=== PATIENT | female | born 1990 | race Caucasian/White ===

== ENCOUNTER 2023-10-22 16:37 | Emergency (ER) | payer BC, SELFPAY ==
[2023-10-22 16:39] VITALS: BP 107/76; PULSE 102; RESP 16; TEMP 37.1; O2SAT 96; BMI 27.5
--- NOTE | 2023-10-22 16:44 | ED_ITS ---
HPI - General Adult General Chief complaint: Headache/Migraine Stated complaint: migraine, swollen lymph nodes Time Seen by Provider: 10/22/23 16:38 History of Present Illness HPI narrative: woke up with swollen lymph node. has had migraine for over a week that can't get rid of. had to miss work twice. has tried tylenol and ibuprofen, benadryl and naproxen. states started getting migraines more frequently over the last month . 32-year-old woman presenting to the emergency department with concern of swollen lymph node and migrainous headache. As she reports a headache for about a week and a half that she has been unable to shake. She has had to miss work due to it. 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 Does have a history of headaches and it sounds like a diagnosis of migraines. She has had Imitrex available and more recently has used that, acetaminophen, ibuprofen and naproxen without relief. Headaches have been more intense and more frequent over the last month and a half. This current headache does get worse over the course of the day. Does seem to improve it nightly she is able to sleep. She does admit that she will wake without the headache but very shortly after waking headache will start to build. She describes of frontal forehead headache and on the top of her head. Will get in deeply behind her eyes as well. Does not describe lacrimation or rhinorrhea. This morning woke with a swollen lymph node the left side of her neck. Whenever she rotates to the left seems to set things off again or a pulse of pain into her head. She does not describe a regular pulsing or shock independent of movement. She is seeing stars in both eyes. Is not nauseated at this time. She reports having sweats related to the degree of discomfort. No fever no rash. Does recall getting headaches more intense during . Has a 2-year-old now. They seem to settle but now has noted increasing again. Looking to reconnect with primary care provider for recommendations. She has had prior CT and MRI imaging as part of evaluation she believes. No known history of concussions. Related Data Home Medications Medication Instructions Recorded Confirmed clonazepam 0.5 mg tablet 0.5 mg PO DAILY 10/22/23 10/22/23 quetiapine 50 mg tablet 50 mg PO BID 10/22/23 10/22/23 Allergies Allergy/AdvReac Type Severity Reaction Status Date / Time No Known Drug Allergies Allergy Verified 10/22/23 16:42 Review of Systems Status of ROS: Reports: 6 or more systems reviewed and unremarkable except as noted in History and below Exam Narrative: Exam Narrative: Pleasant. Seems uncomfortable. Demonstrating photophobia. Numerous black line tattoos. Cranial nerves 2-12 intact. Pupils are 4 mm and appropriately reactive initially in this dim lighting. Neck is supple. She is sore at the angle of left jaw in the upper anterior cervical chain where there is 1 cm lymph node. I do not see surrounding inflammatory changes. Scalp is free of lesions. Breathing easily. Heart in elevated rate and regular rhythm. Moving all extremities without difficulty; with good strength. No pulsatile swelling at the temples. She is a little tender to palpation though across the forehead in into bitemporal area. Const: Vital Signs, click to edit/add: Vital Signs - 24 hr 10/22/23 16:39 Temperature 98.7 F Pulse Rate [Pulse Oximeter] 102 H Respiratory Rate 16 Blood Pressure [Ri ght Upper Arm] 107/76 Pulse Oximetry 96 Oxygen Delivery Me thod Room Air Documenting provider has reviewed patient's vital signs: yes Course Vital Signs Vital signs: Initial Vital Signs Temperature 98.7 F 10/22/23 16:39 Temperature Source Temporal Artery Scan 10/22/23 16:39 Pulse Rate 102 H 10/22/23 16:39 Respiratory Rate 16 10/22/23 16:39 Blood Pressure 107/76 10/22/23 16:39 Blood Pressure Mean 86 10/22/23 16:39 Blood Pressure Position Sitting 10/22/23 16:39 Pulse Oximetry 96 10/22/23 16:39 Oxygen Delivery Method Room Air 10/22/23 16:39 Vital Signs Temperature 98.7 F 10/22/23 16:39 Pulse Rate 102 H 10/22/23 16:39 Respiratory Rate 16 10/22/23 16:39 Blood Pressure 107/76 10/22/23 16:39 Pulse Oximetry 96 10/22/23 16:39 Oxygen Delivery Method Room Air 10/22/23 16:39 Temperature 98.7 F 10/22/23 16:39 Pulse Rate 86 10/22/23 19:27 Respiratory Rate 16 10/22/23 19:27 Blood Pressure 136/96 H 10/22/23 19:27 Pulse Oximetry 99 10/22/23 19:27 Oxygen Delivery Method Room Air 10/22/23 19:27 Medications Administered Medications: Discontinued Medications Generic Name Dose Route Start Last Admin Trade Name Harinder PRN Reason Stop Dose Admin Dexamethasone 10 mg 10/22/23 17:02 10/22/23 17:22 Dexamethasone 10 Mg/Ml Inj IV 10/22/23 17:03 10 mg ONCE ONE Administration Diphenhydramine HCl 25 mg 10/22/23 17:02 10/22/23 17:22 Diphenhydramine 50 Mg/Ml Inj IVP 10/22/23 17:03 25 mg ONCE ONE Administration Sodium Chloride 1,000 mls @ 1,000 mls/hr 10/22/23 17:02 10/22/23 18:16 0.9 % Sodium Chloride 1000 Ml IV 10/22/23 18:01 Infused .Q1H ONE Infusion Ketamine HCl 20 mg 10/22/23 18:47 10/22/23 19:03 Ketamine Hcl 100 Mg/Ml Inj IVPB 10/22/23 18:48 20 mg ONCE ONE Administration Ketorolac Tromethamine 30 mg 10/22/23 17:02 10/22/23 17:22 Ketorolac 30 Mg/Ml Inj IVP 10/22/23 17:03 30 mg ONCE ONE Administration Medical Decision Making MDM Narrative Medical decision making narrative: Will try to offer her relief for this headache. She has had imaging in the past. Since this recent bout of headaches seems to resolve overnight I am a somewhat reassured; I think less likely intracerebral lesion or event beyond headache/migraine. Would appear to have some degree of tension component. Exacerbated now by this swollen lymph node of unclear etiology. Certainly has numerous options for longer-term management. Thought she had some sinus congestion recently but that has not apparently amounted to much. No focal neurological findings here today. Initiate IV. Normal saline, diphenhydramine and ketorolac. On reassessment is still with headache though admittedly somewhat improved. Would like further treatment. After discussion we settled on ketamine. Was also ordered for dexamethasone. Markedly improved after ketamine infusion. See patient discharge plan for further discussion Discharge Plan Discharge Clinical Impression: Migraine Patient Disposition: Home w/ Parent or Adult Condition: Improved Additional Instructions: Continue to stay well hydrated and get quality and regular sleep. Try to get in a little heart pumping exercise daily. Check in with your primary care provider as planned for next step in management. Hopefully this evening is the last of this latest flare. The dexamethasone should continue to work in the background for maybe another 36 hours to finish off any remaining inflammation. See handout on stretches/exercises for the upper back. Follow-up for re-evaluation if this lymph node is still present after 2-3 weeks. Prescriptions: No Action clonazepam 0.5 mg tablet 0.5 mg PO DAILY quetiapine 50 mg tablet 50 mg PO BID Follow Up/Referrals: Provider,Not a Local [Primary Care Provider] - Stand Alone Forms: [employer] Info Instructions
[2023-10-22] MEDS: diphenhydrAMINE 50 MG/ML inj 25 MG IVP (17:22)
[2023-10-22] MEDS: 0.9 % SODIUM CHLORIDE 1000 ml 1,000 ML IV (17:22)
[2023-10-22] MEDS: dexAMETHasone 10 MG/ML inj IV (17:22)
[2023-10-22] MEDS: KETOROLAC 30 MG/ML inj IVP (17:22)
[2023-10-22] MEDS: KETAMINE HCL 100 MG/ML inj 20 MG IVPB (19:03)
[2023-10-22 19:27] VITALS: BP 136/96; PULSE 86; RESP 16; O2SAT 99
== END 2023-10-22 19:55 | disposition home or self-care (01) ==
PROVIDERS: Emergency Provider Family Medicine
DX: G43.909 Migraine, unspecified, not intractable, without status migrainosus (principal)
CPT/HCPCS: 96374; 96375; 99284; J1100; J1200; J1885; J3490; J7030

== ENCOUNTER 2023-11-15 15:21 | Emergency (ER) | payer BC, SELFPAY ==
[2023-11-15 15:28] VITALS: BP 144/91; PULSE 73; RESP 18; TEMP 36.6; O2SAT 97; BMI 27.5
--- NOTE | 2023-11-15 15:56 | ED_ITS ---
HPI - Dental/Oral General Chief complaint: Dental/Oral/Mouth Injury/Pain Stated complaint: broken/infected tooth Time Seen by Provider: 11/15/23 15:25 History of Present Illness HPI Narrative: This 33-year-old female comes in with right upper dental pain. She has a fractured tooth and believes that there is an associated infection. She states that she does have an appointment with her dentist in a few days but could not handle the pain despite taking Tylenol and ibuprofen. Related Data Home Medications Medication Instructions Recorded Confirmed clonazepam 0.5 mg tablet 0.5 mg PO DAILY 10/22/23 10/22/23 quetiapine 50 mg tablet 50 mg PO BID 10/22/23 10/22/23 Previous Rx's Medication Instructions Recorded amoxicillin 500 mg capsule 500 mg PO TID 7 days #21 caps 11/15/23 ketorolac 10 mg tablet 10 mg PO Q8H 5 days #15 tabs 11/15/23 Allergies Allergy/AdvReac Type Severity Reaction Status Date / Time No Known Drug Allergies Allergy Verified 10/22/23 16:42 Review of Systems Status of ROS: Reports: 10 or more systems reviewed and unremarkable except as noted in History and below Narrative: Constitutional: No fevers, no weight gain or loss. Eyes: No discharge. No vision changes. HENT: No congestion, no sore throat, no ear pain. Cardiovascular: No chest pain, no palpitations. Respiratory: No shortness of breath, no wheezes, no cough. Gastrointestinal: No abdominal pain, no vomiting, no diarrhea. Genitourinary: No dysuria, no hematuria. Musculoskeletal: Normal range of motion. Skin: No rashes, no pruritis. Neurological: No dizziness, weakness, sensory change, speech change. Endo/Heme/Allergies: No bruising or bleeding. No polydipsia. Pysch: no suicidality, no anxiety, no insomnia. All other systems reviewed and are negative. PFSH PFS Social History Smoking Status: Current some day smoker Do you use any of these nicotine containing products: Vaping Products How often do you have a drink containing alcohol: never AUDIT-C Alcohol total score: 0 Non-prescribed substance use: denies use Exam Narrative: Exam Narrative: Constitutional: Well-developed, well-nourished, no acute distress. HEENT: Normocephalic, atraumatic. Fractured tooth in the right upper row. There is no obvious sign of abscess but may have some infection internally. Neck: Normal range of motion. Nontender. Supple. Heart: Regular. No murmurs. Normal rate. Intact distal pulses. Lungs: Clear to auscultation. No chest discomfort. No wheezes, rhonchi, or rales. Abdomen: Normal bowel sounds. Nontender. No rebound tenderness. Genitalia: Deferred. Back: No midline tenderness. Normal range of motion. Extremities: Normal range of motion. No injury. Skin: Intact. No rash. Warm. No erythema or pallor. Neurologic: No altered sensation. No weakness. Alert and oriented. Psychiatric: No suicidality. No anxiety or depression. No insomnia. Nursing notes and vitals signs are reviewed. Const: Vital Signs, click to edit/add: Vital Signs - 24 hr 11/15/23 15:28 Temperature 98 F Pulse Rate [Pulse Oximeter] 73 Respiratory Rate 18 Blood Pressure [Ri ght Upper Arm] 144/91 H Pulse Oximetry 97 Oxygen Delivery Me thod Room Air Course Vital Signs Vital signs: Initial Vital Signs Temperature 98 F 11/15/23 15:28 Temperature Source Temporal Artery Scan 11/15/23 15:28 Pulse Rate 73 11/15/23 15:28 Respiratory Rate 18 11/15/23 15:28 Blood Pressure 144/91 H 11/15/23 15:28 Blood Pressure Mean 108 H 11/15/23 15:28 Pulse Oximetry 97 11/15/23 15:28 Oxygen Delivery Method Room Air 11/15/23 15:28 Vital Signs Temperature 98 F 11/15/23 15:28 Pulse Rate 73 11/15/23 15:28 Respiratory Rate 18 11/15/23 15:28 Blood Pressure 144/91 H 11/15/23 15:28 Pulse Oximetry 97 11/15/23 15:28 Oxygen Delivery Method Room Air 11/15/23 15:28 Temperature 98 F 11/15/23 15:28 Pulse Rate 73 11/15/23 15:28 Respiratory Rate 18 11/15/23 15:28 Blood Pressure 144/91 H 11/15/23 15:28 Pulse Oximetry 97 11/15/23 15:28 Oxygen Delivery Method Room Air 11/15/23 15:28 MDM - Dental/Oral MDM Narrative Medical decision making narrative: This patient is agreeable to having the dental nerve block for some pain relief. Using bupivacaine 0.25% I did inject above the affected tooth and a bit anterior and posterior to provide some kind a nerve block of the maxillary nerves involved. This did bring relief to her symptoms. I did also provide a prescription for amoxicillin and Toradol. Discharge Plan Discharge Clinical Impression: Toothache, Fracture of tooth Patient Disposition: Home, Self-Care Condition: Improved Additional Instructions: Take medication as prescribed. Follow-up with dentist as scheduled. Prescriptions: New amoxicillin 500 mg capsule 500 mg PO TID 7 Days Qty: 21 0RF ketorolac 10 mg tablet 10 mg PO Q8H 5 Days Qty: 15 0RF No Action clonazepam 0.5 mg tablet 0.5 mg PO DAILY quetiapine 50 mg tablet 50 mg PO BID Follow Up/Referrals: Provider,Not a Local [Primary Care Provider] - Stand Alone Forms: [employer] Info Instructions
== END 2023-11-15 16:09 | disposition home or self-care (01) ==
LOC: ED 16:04
PROVIDERS: Emergency Provider Emergency Medicine Emergency Medical Services
DX: S02.5XXA Fracture of tooth (traumatic), initial encounter for closed fracture (principal)
CPT/HCPCS: 64400; 99283; 99284

== ENCOUNTER 2024-02-23 15:05 | Outpatient (CLI) | payer BC, SELFPAY | END 2024-02-23 15:06 | disposition home or self-care (01) | LOC: AMB 02-26 23:52 | PROVIDERS: Visit Provider Student in an Organized Health Care Education/Training Program | DX: R55 Syncope and collapse (principal); R42 Dizziness and giddiness | CPT/HCPCS: A0425; A0427 ==

== ENCOUNTER 2024-02-23 15:28 | Emergency (ER) | payer BC, SELFPAY ==
[2024-02-23 15:36] VITALS: BP 134/91; PULSE 88; RESP 16; TEMP 37.4; O2SAT 98; BMI 27.5
--- NOTE | 2024-02-23 15:56 | CRLHL7_ITS ---
For Patients: As a result of the Century Cures Act, medical imaging exams and procedure reports are released immediately into your electronic medical record. You may view this report before your referring provider. If you have questions, please contact your health care provider. Indication: Syncope. Technique: CT of the brain was performed without intravenous contrast. Comparison: None relevant available at this institution. Findings: No acute blurring of the valdes-white differentiation. There is no intracranial hemorrhage. The ventricles are proportionate to the cerebral sulci. The 4th ventricle is midline. Basal cisterns appear patent. No abnormal extra-axial fluid collection identified. There is no intracranial mass, mass effect or midline shift identified. No depressed calvarial fracture. Impression: No acute intracranial process. Please note that all CT scans at this facility use dose modulation, iterative reconstruction, and/or weight-based dosing when appropriate to reduce radiation dose to as low as reasonably achievable. Dictated by Howard Flores MD @ 02/23/2024 4:41:18 PM (Electronically Signed)
--- NOTE | 2024-02-23 15:56 | CRLHL7_ITS ---
For Patients: As a result of the Century Cures Act, medical imaging exams and procedure reports are released immediately into your electronic medical record. You may view this report before your referring provider. If you have questions, please contact your health care provider. Indication: Syncope. Technique: CT of the cervical spine performed without IV contrast. Comparison: None available. Findings: The vertebral body heights are maintained without fracture. Disc space heights appear preserved. Straightening of the cervical lordosis. No overt evidence for high-grade spinal canal or neural foraminal stenosis. No prevertebral soft tissue swelling. Impression: No acute osseous injury involving the cervical spine. Please note that all CT scans at this facility use dose modulation, iterative reconstruction, and/or weight-based dosing when appropriate to reduce radiation dose to as low as reasonably achievable. Dictated by Howard Flores MD @ 02/23/2024 4:43:23 PM (Electronically Signed)
--- NOTE | 2024-02-23 15:58 | ED.GENADULT ---
HPI - General Adult General Chief complaint: Headache/Migraine Stated complaint: syncope Time Seen by Provider: 02/23/24 15:46 History of Present Illness HPI narrative: 33-year-old female comes in because of a syncopal event at a occurred just prior to arrival. She states that she was feeling normal and when outside to walk to work a distance of about 2-4 blocks. She got a bit more than skilled nursing there and does not remember what happened. She was on the ground and remember somebody waking her up and the ambulance had been called. She comes in with normal vital signs with blood glucose also has normal levels. She is not on any new medications. She is complaining of head and neck pain. She arrives with normal vital signs. Related Data Home Medications ?Medication ?Instructions ?Recorded ?Confirmed clonazepam 1 mg tablet 1 mg PO BID PRN 02/23/24 02/23/24 dextroamphetamine-amphetamine ER 1 cap PO QAM 02/23/24 02/23/24 15 mg 24hr capsule,extend release duloxetine 20 mg capsule,delayed 40 mg PO DAILY 02/23/24 02/23/24 release vilazodone 10 mg tablet (Viibryd) 10 mg PO DAILY 02/23/24 02/23/24 Allergies Allergy/AdvReac Type Severity Reaction Status Date / Time bee venom protein (honey bee) AdvReac Mild edema Verified 02/23/24 15:34 Review of Systems Status of ROS: Reports: 10 or more systems reviewed and unremarkable except as noted in History and below Narrative: Constitutional: No fevers, no weight gain or loss. Eyes: No discharge. No vision changes. HENT: No congestion, no sore throat, no ear pain. Cardiovascular: No chest pain, no palpitations. Respiratory: No shortness of breath, no wheezes, no cough. Gastrointestinal: No abdominal pain, no vomiting, no diarrhea. Genitourinary: No dysuria, no hematuria. Musculoskeletal: Normal range of motion. Skin: No rashes, no pruritis. Neurological: No dizziness, weakness, sensory change, speech change. Endo/Heme/Allergies: No bruising or bleeding. No polydipsia. Pysch: no suicidality, no anxiety, no insomnia. All other systems reviewed and are negative. PFSH PFSH Social History Smoking Status: Current some day smoker Do you use any of these nicotine containing products: Vaping Products Second hand tobacco smoke exposure: No How often do you have a drink containing alcohol: never AUDIT-C Alcohol total score: 0 Non-prescribed substance use: denies use and former substance user Non-prescribed substance use details: clean since 2009 service: No Exam Narrative: Exam Narrative: Constitutional: Well-developed, well-nourished, no acute distress. HEENT: Normocephalic, atraumatic. Neck: Normal range of motion. Nontender. Supple. Heart: Regular. No murmurs. Normal rate. Intact distal pulses. Lungs: Clear to auscultation. No chest discomfort. No wheezes, rhonchi, or rales. Abdomen: Normal bowel sounds. Nontender. No rebound tenderness. Genitalia: Deferred. Back: No midline tenderness. Normal range of motion. Extremities: Normal range of motion. No injury. Skin: Intact. No rash. Warm. No erythema or pallor. Neurologic: No altered sensation. No weakness. Alert and oriented. Psychiatric: No suicidality. No anxiety or depression. No insomnia. Nursing notes and vitals signs are reviewed. Const: Vital Signs, click to edit/add: Vital Signs - 24 hr 02/23/24 15:36 Temperature 99.3 F Pulse Rate [Femora l] 88 Respiratory Rate 16 Blood Pressure [Ri ght Upper Arm] 134/91 H Pulse Oximetry 98 Oxygen Delivery Me thod Room Air Course Vital Signs Vital signs: Initial Vital Signs Temperature 99.3 F 02/23/24 15:36 Temperature Source Temporal Artery Scan 02/23/24 15:36 Pulse Rate 88 02/23/24 15:36 Pulse Rhythm Regular 02/23/24 15:36 Pulse Strength 3+ Normal 02/23/24 15:36 Respiratory Rate 16 02/23/24 15:36 Blood Pressure 134/91 H 02/23/24 15:36 Blood Pressure Mean 105 02/23/24 15:36 Blood Pressure Position Semi-Fowlers 02/23/24 15:36 Pulse Oximetry 98 02/23/24 15:36 Oxygen Delivery Method Room Air 02/23/24 15:36 Vital Signs Temperature 99.3 F 02/23/24 15:36 Pulse Rate 88 02/23/24 15:36 Respiratory Rate 16 02/23/24 15:36 Blood Pressure 134/91 H 02/23/24 15:36 Pulse Oximetry 98 02/23/24 15:36 Oxygen Delivery Method Room Air 02/23/24 15:36 Temperature 99.3 F 02/23/24 15:36 Pulse Rate 88 02/23/24 15:36 Respiratory Rate 16 02/23/24 15:36 Blood Pressure 134/91 H 02/23/24 15:36 Pulse Oximetry 98 02/23/24 15:36 Oxygen Delivery Method Room Air 02/23/24 15:36 Medications Administered Medications: Discontinued Medications Generic Name Dose Route Start Last Admin Trade Name Freq PRN Reason Stop Dose Admin Sodium Chloride 1,000 mls @ 1,000 mls/hr 02/23/24 16:00 02/23/24 16:23 0.9 % Sodium Chloride 1000 Ml IV 02/23/24 16:59 1,000 mls/hr .Q1H MG Administration Ketorolac Tromethamine 10 mg 02/23/24 16:31 02/23/24 16:41 Ketorolac 10 Mg Tablet PO 02/23/24 16:32 10 mg ONCE ONE Administration Medical Decision Making MDM Narrative Medical decision making narrative: This patient comes in for evaluation of a syncopal event that occurred just prior to arrival. She arrives here with normal vital signs. She does state that she has a dry mouth. It is very hot and humid today and she was out walking to work when this happened. An IV was placed and the patient received 500 mL of fluid prior to arrival in another a 1000 mL After arrival here. CT scan of her head and neck is obtained with no acute findings. Additionally lab results all retuned normal. The patient states that she is feeling better and is okay to return home. She did receive an oral dose of Toradol 10 mg. Lab Data Labs: Lab Results 02/23/24 Range/Units 16:26 WBC 7.88 (4.50-11.00) K/uL RBC 4.18 (4.00-5.20) m/uL Hgb 13.2 (12.0-16.0) gm/dL Hct 39.4 (33.0-51.0) % MCV 94 (80-100) fL MCH 32 (26-34) pg MCHC 34 (32-36) gm/dL RDW Coeff of Luz 11.4 L (11.5-15.5) % Plt Count 243 (140-440) K/uL Neut % (Auto) 72.3 H (42.0-72.0) % Lymph % (Auto) 24.0 (20-44) % Karnes % (Auto) 3.4 (0.0-11.0) % Eos % (Auto) 0.1 (0.0-7.0) % Baso % (Auto) 0.1 (0.0-3.0) % Neut # (Auto) 5.70 (1.7-7.0) K/uL Lymph # (Auto) 1.89 (0.90-2.90) K/uL Karnes # (Auto) 0.30 (0.00-0.90) K/UL Eos # (Auto) 0.01 (0.00-0.50) K/uL Baso # (Auto) 0.01 (0.00-0.30) K/uL Abs Immat Gran (auto) 0.01 (0.00-0.30) K/uL Imm/Tot Granulo (auto) 0.1 % Sodium 140 (135-149) mmol/L Potassium 4.3 (3.6-5.1) mmol/L Chloride 109 (96-114) mmol/L Carbon Dioxide 24 (20-32) mmol/L Anion Gap 7 (7-15) mEq/L BUN 10 (5-24) mg/dL Creatinine 0.8 (0.5-1.5) mg/dL Estimated Creat Clear 89.16 Estimated GFR 99 ml/min Glucose 102 (60-115) mg/dL Calcium 9.1 (8.4-10.6) mg/dL Imaging Data CT scan - head: Radiologist's impression: No acute intracranial process. CT Cervical Spine: Radiologist's impression: No acute osseous injury involving the cervical spine. Discharge Plan Discharge Clinical Impression: Syncope, Headache Patient Disposition: Home w/ Parent or Adult Condition: Improved Additional Instructions: use [id number] medicines as needed and directed. Take plenty of fluids increase diet as tolerated. Follow up with MD return if recurrent or worsening symptoms happen. Prescriptions: No Action clonazepam 1 mg tablet 1 mg PO BID PRN dextroamphetamine-amphetamine 15 mg capsule,extended release 24hr 1 cap PO QAM duloxetine 20 mg capsule,delayed release(DR/EC) 40 mg PO DAILY vilazodone [Viibryd] 10 mg tablet 10 mg PO DAILY Follow Up/Referrals: Provider,Not a Local [Primary Care Provider] - Stand Alone Forms: [employer] Info Instructions
[2024-02-23] MEDS: 0.9 % SODIUM CHLORIDE 1000 ml 1,000 ML IV (16:23)
[2024-02-23 16:34] LABS: Basophils Absolute Auto 0.01 K/uL (0.00-0.30); Basophils Percent Auto 0.1 % (0.0-3.0); Eosinophils Absolute Auto 0.01 K/uL (0.00-0.50); Eosinophils Percent Auto 0.1 % (0.0-7.0); Hematocrit 39.4 % (33.0-51.0); Hemoglobin* 13.2 gm/dL (12.0-16.0); Immature Granulocytes Abs Auto 0.01 K/uL (0.00-0.30); Immature Granulocytes Pct Auto 0.1 %; Lymphocytes Absolute Auto 1.89 K/uL (0.90-2.90); Mean Corpuscular HGB Conc 34 gm/dL (32-36); Mean Corpuscular Hemoglobin 32 pg (26-34); Mean Corpuscular Volume 94 fL (80-100); Monocytes Percent Auto 3.4 % (0.0-11.0); Neutrophils Percent Auto 72.3 % (42.0-72.0); Platelet Count* 243 K/uL (140-440); RDW Coefficient of Variation % 11.4 % (11.5-15.5); Red Blood Count 4.18 m/uL (4.00-5.20); White Blood Count* 7.88 K/uL (4.50-11.00)
[2024-02-23] MEDS: KETOROLAC 10 MG TABLET PO (16:41)
[2024-02-23 16:43] LABS: Slide Review Reflex No
[2024-02-23 16:47] LABS: Chloride* 109 mmol/L (96-114); Potassium* 4.3 mmol/L (3.6-5.1); Sodium* 140 mmol/L (135-149)
[2024-02-23 16:49] LABS: Creatinine* 0.8 mg/dL (0.5-1.5); Est. Creatinine Clearance* 89.16; Estimated Glomerular Filt Rate 99 ml/min
[2024-02-23 16:50] LABS: Anion Gap 7 mEq/L (7-15); Blood Urea Nitrogen* 10 mg/dL (5-24); Calcium* 9.1 mg/dL (8.4-10.6); Carbon Dioxide* 24 mmol/L (20-32); Glucose* 102 mg/dL (60-115)
[2024-02-23 17:39] VITALS: BP 134/91; PULSE 88; RESP 16; TEMP 37.4
== END 2024-02-23 17:41 | disposition home or self-care (01) ==
PROVIDERS: Emergency Provider Emergency Medicine Emergency Medical Services
DX: R55 Syncope and collapse (principal); R51.9 Headache, unspecified
CPT/HCPCS: 36415; 70450; 72125; 80048; 85025; 99284; A9270; J7030

== ENCOUNTER 2024-03-01 18:18 | Emergency (ER) | payer BC, SELFPAY ==
[2024-03-01 18:26] VITALS: BP 118/73; PULSE 119; RESP 16; TEMP 38.6; O2SAT 96; BMI 27.5
[2024-03-01 18:55] LABS: Appearance Urine Clear (Clear); Bilirubin Urine Negative (Negative); Blood Urine 2+ (Negative); Color Urine Yellow (Yellow); Glucose Urine Negative (Negative); Ketones Urine Negative (Negative); Leukocyte Esterase Urine 1+ (Negative); Nitrite Urine Negative (Negative); Protein Urine Trace (Negative); Specific Gravity Urine 1.015 (1.000-1.030); Urobilinogen Urine 0.2 (0.2-1.0); pH Urine 5.5 (5.0-8.5)
[2024-03-01 19:11] LABS: Bacteria Urine Few; Squamous Epithelial Cell Urine Few (None-Few)
[2024-03-01 19:31] LABS: Ur HCG Qualitative* Negative (Negative)
--- NOTE | 2024-03-02 00:24 | ED_ITS ---
HPI - General Adult General Date Seen: 03/02/24 Chief complaint: Fever Stated complaint: Fever, short of breath, back pain, legs numb Time Seen by Provider: 03/01/24 18:33 History of Present Illness HPI narrative: This is a 33-year-old female accompanied to the ER today by her fiance for evaluation of fever, feeling weak, back pain. Patient notes that she has been having symptoms of dark urine and dysuria for the past week or so. However she has a very busy job and has a been able to come to the doctor for that. She specific specks that she may have a UTI. She had a long shift at work today. She was feeling a bit unwell. She was feeling weak and a bit tired and kind of dizzy. This evening she also developed pain in both of her flanks. She began to feel more dizzy and weak, and also some numbness in her legs and arms. Because she was feeling so poorly she checked her temperature and had a temperature of 103.2?. She called her fiance and he brought her here to the ER. No other symptoms to go with her fever. No headache. No sore throat. No nasal congestion. No cough. No rashes. No diarrhea. She was nauseous earlier but no vomiting. She had her fiance also recall that she had an episode about 2 weeks ago where she was walking to work in the hot weather and got dizzy and passed out. She was apparently evaluated in the ER here and was thought to a have benign cause for syncope. In review of medical record I see she was seen by Dr. Benson. She had a temp of 99.3?. Normal blood pressure. Pulse was 88. She was treated with IV fluids. Head CT scan and C-spine were obtained and were normal. Labs showed normal hemoglobin, normal white count, normal platelet count, normal glucose. Normal kidney function. Related Data Home Medications ?Medication ?Instructions ?Recorded ?Confirmed clonazepam 1 mg tablet 1 mg PO BID PRN 02/23/24 03/01/24 dextroamphetamine-amphetamine ER 1 cap PO QAM 02/23/24 03/01/24 15 mg 24hr capsule,extend release duloxetine 20 mg capsule,delayed 40 mg PO DAILY 02/23/24 03/01/24 release vilazodone 10 mg tablet (Viibryd) 10 mg PO DAILY 02/23/24 03/01/24 Previous Rx's ?Medication ?Instructions ?Recorded ketorolac 10 mg tablet 10 mg PO Q8H 5 days #15 tabs 02/23/24 Allergies Allergy/AdvReac Type Severity Reaction Status Date / Time bee venom protein (honey bee) AdvReac Mild edema Verified 03/01/24 18:25 [facility] Social History Smoking Status: Current some day smoker Do you use any of these nicotine containing products: Vaping Products Second hand tobacco smoke exposure: No How often do you have a drink containing alcohol: never AUDIT-C Alcohol total score: 0 Non-prescribed substance use: denies use and former substance user Non-prescribed substance use details: clean since 2009 service: No Exam Narrative: Exam Narrative: Constitutional: Appears well-developed and well-nourished. Alert. Conversant. Non toxic. HENT: Head: Atraumatic. Nose: Nose normal. Right ear normal. TM normal Left ear normal. Canal almost completely occluded by cerumen but visualized portion of the TM are normal. Mastoids normal bilaterally Mouth/Throat: Oral mucosa is clear and moist. no trismus. Pharynx normal. Tonsils symmetric. No tonsillar enlargement, erythema, or exudate. Eyes: Conjunctivae normal. EOM normal. Pupils equal, round, and reactive to light. No scleral icterus. Neck: Normal range of motion. Neck supple. No tracheal deviation present. Cardiovascular: Normal rate, regular rhythm. No gallop. No friction rub. No murmur heard. Symmetric radial artery pulses Pulmonary/Chest: Effort normal. No stridor. No respiratory distress. No wheezes. No rales. No rhonchi . No tenderness. Abdominal: Soft. Bowel sounds normal. No distension. No mass. No tenderness. No rebound. No guarding. Bilateral CVA tenderness. Musculoskeletal: RUE: Normal range of motion. No tenderness. No deformity LUE: Normal range of motion. No tenderness. No deformity RLE: Normal range of motion. No edema. No tenderness. No deformity LLE: Normal range of motion. No edema. No tenderness. No deformity Lymph: No cervical adenopathy. Neurological: Alert and oriented to person, place, and time. Normal strength. CN II-VII intact. No sensory deficit. GCS eye subscore is 4. GCS verbal subscore is 5. GCS motor subscore is 6. Normal coordination Skin: Skin is warm and dry. No rash noted. No pallor. Normal capillary refill. Psychiatric: Normal mood. Normal affect. Polite. Const: Vital Signs, click to edit/add: Vital Signs - 24 hr 03/01/24 18:26 Temperature 101.5 F H Pulse Rate [Pulse Oximeter] 119 H Respiratory Rate 16 Blood Pressure [Ri ght Upper Arm] 118/73 Pulse Oximetry 96 Oxygen Delivery Me thod Room Air Course Vital Signs Vital signs: Initial Vital Signs Temperature 101.5 F H 03/01/24 18:26 Temperature Source Temporal Artery Scan 03/01/24 18:26 Pulse Rate 119 H 03/01/24 18:26 Pulse Rhythm Regular 03/01/24 18:26 Respiratory Rate 16 03/01/24 18:26 Blood Pressure 118/73 03/01/24 18:26 Blood Pressure Mean 88 03/01/24 18:26 Blood Pressure Position Supine 03/01/24 18:26 Pulse Oximetry 96 03/01/24 18:26 Oxygen Delivery Method Room Air 03/01/24 18:26 Vital Signs Temperature 101.5 F H 03/01/24 18:26 Pulse Rate 119 H 03/01/24 18:26 Respiratory Rate 16 03/01/24 18:26 Blood Pressure 118/73 03/01/24 18:26 Pulse Oximetry 96 03/01/24 18:26 Oxygen Delivery Method Room Air 03/01/24 18:26 Temperature 101.5 F H 03/01/24 18:26 Pulse Rate 119 H 03/01/24 18:26 Respiratory Rate 16 03/01/24 18:26 Blood Pressure 118/73 03/01/24 18:26 Pulse Oximetry 96 03/01/24 18:26 Oxygen Delivery Method Room Air 03/01/24 18:26 Medical Decision Making MDM Narrative Medical decision making narrative: Child presents for evaluation of fever associated with dizziness, back pain, malaise.. Differential is broad. No cough or nasal congestion or other URI symptoms to suggest COVID or other viral syndrome. None of the classic viral rashes are present.No evidence for OM on exam. No pharyngitis. Differential for fever included cellulitis, septic arthritis, osteomyelitis but these are not seen on exam. Lungs are clear and no significant cough, so I doubt pneumonia. Abdominal exam is benign, appendicitis/colitis/ intra-abdominal source for fever is unlikely. The patient is smiling, alert, sitting up, hemodynamically stable, and non-toxic, so I do not think sepsis or meningitis is present. She does report dysuria and malodorous urine ongoing this week which would be suggestive for probable UTI. Now with fever and flank pain suspect she may be developing pyelonephritis. Urinalysis is abnormal with positive leukocyte esterase, protein, 2-5 red cells per high-power field. Overall this would be equivocal evidence for UTI but she also reports that she took a dose of amoxicillin earlier today when she started running fever. This certainly could mask signs of UTI. Discussed with the patient and her fiance that we could consider further workup with labs, fluids, imaging a, COVID testing. However with a presumed source of her fever and infection being identified as probable urine, we could also consider treatment at this point with a course of antibiotics. At this point she is hemodynamically stable and I do not think she requires hospitalization for pyelonephritis. Therefore they opted to treat with antibiotics. Will start the patient on cephalexin (prescription through [facility]). At this point the patient is non-toxic, well appearing. This fever is likely due to UTI/possible evolving pyelonephritis. Instructions to return for recheck in 3 days if not improved, or immediately if worsening fever, decreasing oral intake, lethargy, irritability, seizure, or any other concerns. Lab Data Labs: Lab Results 03/01/24 03/01/24 Range/Units 18:50 19:20 Urine Color Yellow (Yellow) Urine Appearance Clear (Clear) Urine pH 5.5 (5.0-8.5) Ur Specific [place] 1.015 (1.000-1.030) Urine Protein Trace A (Negative) Urine Glucose (UA) Negative (Negative) Urine Ketones Negative (Negative) Urine Blood 2+ A (Negative) Urine Nitrite Negative (Negative) Urine Bilirubin Negative (Negative) Urine Urobilinogen 0.2 (0.2-1.0) Ur Leukocyte Esterase 1+ A (Negative) Urine RBC 2-5 A (0-2) Urine WBC 2-5 (0-5) Ur Squamous Epith Cells Few (None-Few) Urine Bacteria Few A (None) Urine HCG, Qual Negative (Negative) Discharge Plan Discharge Clinical Impression: UTI (urinary tract infection), Pyelonephritis Patient Disposition: Home, Self-Care Condition: Stable Instructions: Kidney Infection (ED) Additional Instructions: As we discussed, please start on antibiotics to treat your infection tonight. Take them as prescribed for 10 days until they are gone. We will call you in 1- 3 days if your urine culture shows an unusual bacteria and we need to change your antibiotic. Monitor your symptoms carefully. Rest. Drink plenty of fluids and stay hydrated. Eat healthy food as you are able. Please come back to the ER right away if you have worsening symptoms such as high fever, worsening weakness, worsening body aches, nausea and vomiting, or if you have any other problems or new symptoms (for instance if you have new cough or trouble breathing). Please follow-up with your regular doctor for a checkup within 7-10 days Prescriptions: No Action clonazepam 1 mg tablet 1 mg PO BID PRN dextroamphetamine-amphetamine 15 mg capsule,extended release 24hr 1 cap PO QAM duloxetine 20 mg capsule,delayed release(DR/EC) 40 mg PO DAILY vilazodone [Viibryd] 10 mg tablet 10 mg PO DAILY ketorolac 10 mg tablet 10 mg PO Q8H 5 Days Qty: 15 0RF Follow Up/Referrals: Provider,Not a Local [Non-Staff] - Stand Alone Forms: [employer] Info Instructions
--- NOTE | 2024-03-04 08:16 | ED.GENADULT ---
HPI - General Adult General Chief complaint: Fever Stated complaint: Fever, short of breath, back pain, legs numb Time Seen by Provider: 03/01/24 18:33 History of Present Illness HPI narrative: Follow-up addendum to recent ER visit. Urine culture is positive for [id number] CFU of E coli, pansensitive. On cephalexin (as prescribed through [facility] ). Should be adequate Related Data Home Medications ?Medication ?Instructions ?Recorded ?Confirmed clonazepam 1 mg tablet 1 mg PO BID PRN 02/23/24 03/01/24 dextroamphetamine-amphetamine ER 1 cap PO QAM 02/23/24 03/01/24 15 mg 24hr capsule,extend release duloxetine 20 mg capsule,delayed 40 mg PO DAILY 02/23/24 03/01/24 release vilazodone 10 mg tablet (Viibryd) 10 mg PO DAILY 02/23/24 03/01/24 Previous Rx's ?Medication ?Instructions ?Recorded ketorolac 10 mg tablet 10 mg PO Q8H 5 days #15 tabs 02/23/24 Allergies Allergy/AdvReac Type Severity Reaction Status Date / Time bee venom protein (honey bee) AdvReac Mild edema Verified 03/01/24 18:25 PFSH PFSH Social History Smoking Status: Current some day smoker Do you use any of these nicotine containing products: Vaping Products Second hand tobacco smoke exposure: No How often do you have a drink containing alcohol: never AUDIT-C Alcohol total score: 0 Non-prescribed substance use: denies use and former substance user Non-prescribed substance use details: clean since 2009 service: No Course Vital Signs Vital signs: Initial Vital Signs Temperature 101.5 F H 03/01/24 18:26 Temperature Source Temporal Artery Scan 03/01/24 18:26 Pulse Rate 119 H 03/01/24 18:26 Pulse Rhythm Regular 03/01/24 18:26 Respiratory Rate 16 03/01/24 18:26 Blood Pressure 118/73 03/01/24 18:26 Blood Pressure Mean 88 03/01/24 18:26 Blood Pressure Position Supine 03/01/24 18:26 Pulse Oximetry 96 03/01/24 18:26 Oxygen Delivery Method Room Air 03/01/24 18:26 Vital Signs Temperature 101.5 F H 03/01/24 18:26 Pulse Rate 119 H 03/01/24 18:26 Respiratory Rate 16 03/01/24 18:26 Blood Pressure 118/73 03/01/24 18:26 Pulse Oximetry 96 03/01/24 18:26 Oxygen Delivery Method Room Air 03/01/24 18:26 Temperature 101.5 F H 03/01/24 18:26 Pulse Rate 119 H 03/01/24 18:26 Respiratory Rate 16 03/01/24 18:26 Blood Pressure 118/73 03/01/24 18:26 Pulse Oximetry 96 03/01/24 18:26 Oxygen Delivery Method Room Air 03/01/24 18:26 Medical Decision Making Lab Data Labs: Lab Results 03/01/24 03/01/24 Range/Units 18:50 19:20 Urine Color Yellow (Yellow) Urine Appearance Clear (Clear) Urine pH 5.5 (5.0-8.5) Ur Specific [place] 1.015 (1.000-1.030) Urine Protein Trace A (Negative) Urine Glucose (UA) Negative (Negative) Urine Ketones Negative (Negative) Urine Blood 2+ A (Negative) Urine Nitrite Negative (Negative) Urine Bilirubin Negative (Negative) Urine Urobilinogen 0.2 (0.2-1.0) Ur Leukocyte Esterase 1+ A (Negative) Urine RBC 2-5 A (0-2) Urine WBC 2-5 (0-5) Ur Squamous Epith Cells Few (None-Few) Urine Bacteria Few A (None) Urine HCG, Qual Negative (Negative) Discharge Plan Discharge Clinical Impression: UTI (urinary tract infection), Pyelonephritis Patient Disposition: Home, Self-Care Condition: Stable Instructions: Kidney Infection (ED) Additional Instructions: As we discussed, please start on antibiotics to treat your infection tonight. Take them as prescribed for 10 days until they are gone. We will call you in 1-3 days if your urine culture shows an unusual bacteria and we need to change your antibiotic. Monitor your symptoms carefully. Rest. Drink plenty of fluids and stay hydrated. Eat healthy food as you are able. Please come back to the ER right away if you have worsening symptoms such as high fever, worsening weakness, worsening body aches, nausea and vomiting, or if you have any other problems or new symptoms (for instance if you have new cough or trouble breathing). Please follow-up with your regular doctor for a checkup within 7-10 days Prescriptions: No Action clonazepam 1 mg tablet 1 mg PO BID PRN dextroamphetamine-amphetamine 15 mg capsule,extended release 24hr 1 cap PO QAM duloxetine 20 mg capsule,delayed release(DR/EC) 40 mg PO DAILY vilazodone [Viibryd] 10 mg tablet 10 mg PO DAILY ketorolac 10 mg tablet 10 mg PO Q8H 5 Days Qty: 15 0RF Follow Up/Referrals: Provider,Not a Local [Non-Staff] - Stand Alone Forms: [employer] Info Instructions
== END 2024-03-01 20:00 | disposition home or self-care (01) ==
PROVIDERS: Emergency Provider Emergency Medicine
DX: N39.0 Urinary tract infection, site not specified (principal); N12 Tubulo-interstitial nephritis, not specified as acute or chronic
CPT/HCPCS: 81001; 81025; 87086; 87186; 99281; 99283; 99284

== ENCOUNTER 2024-04-14 17:41 | Emergency (ER) | payer BC, SELFPAY ==
[2024-04-14 18:16] VITALS: BP 108/75; PULSE 106; RESP 16; TEMP 37; O2SAT 98; BMI 28.3
== END 2024-04-14 19:29 | disposition left against medical advice (07) ==
PROVIDERS: Emergency Provider Emergency Medicine Emergency Medical Services
DX: Z53.21 Procedure and treatment not carried out due to patient leaving prior to being seen by health care provider (principal)

== ENCOUNTER 2024-04-15 14:20 | Outpatient (CLI) | payer BC, SELFPAY | END 2024-04-15 14:21 | disposition home or self-care (01) | LOC: AMB 04-19 16:52 | PROVIDERS: Visit Provider Family Medicine | DX: S99.922A Unspecified injury of left foot, initial encounter (principal); W45.8XXA Other foreign body or object entering through skin, initial encounter; W25.XXXA Contact with sharp glass, initial encounter; Y92.008 Other place in unspecified non-institutional (private) residence as the place of occurrence of the external cause | CPT/HCPCS: A0425; A0429 ==

== ENCOUNTER 2024-04-15 14:41 | Emergency (ER) | payer BC, SELFPAY ==
[2024-04-15 14:45] VITALS: BP 140/100; PULSE 96; RESP 18; TEMP 36.8; O2SAT 94; BMI 27.5
--- NOTE | 2024-04-15 14:54 | ED.WOUNDLAC ---
HPI - Wound/Laceration General Time Seen by Provider: 14:54 Date Seen: 04/15/24 Chief Complaint: Laceration/Wound Stated Complaint: foot laceration Time Seen by Provider: 04/15/24 14:54 Source: patient and RN notes reviewed Mode of arrival: ambulatory Limitations: no limitations History of Present Illness HPI narrative: Patient is a very pleasant 33-year-old female with up-to-date immunizations who comes to the emergency room by EMS along with her toddler age daughter who complains of a laceration on the bottom of her left foot that just happened prior to arrival. .Bekah states that she was walking across the floor and a piece of glass cut her foot. It was quite large in she had to pull it out of her foot. Because she got very lightheaded she put paper tells on her foot and called 911. She does arrive by EMS. She does not think there is anything retained as it was thick. She thinks that her dad may have broken something and then was not able to sweep up all the remnants. She notes that she has an up-to-date tetanus. No other major medical illnesses. She is worried because the wound seems to gape open. Related Data Home Medications ?Medication ?Instructions ?Recorded ?Confirmed clonazepam 1 mg tablet 1 mg PO BID PRN 02/23/24 04/14/24 dextroamphetamine-amphetamine ER 1 cap PO QAM 02/23/24 03/01/24 15 mg 24hr capsule,extend release duloxetine 20 mg capsule,delayed 40 mg PO DAILY 02/23/24 03/01/24 release vilazodone 10 mg tablet (Viibryd) 10 mg PO DAILY 02/23/24 03/01/24 lamotrigine 25 mg tablet PO 04/14/24 Previous Rx's ?Medication ?Instructions ?Recorded ketorolac 10 mg tablet 10 mg PO Q8H 5 days #15 tabs 02/23/24 Allergies Allergy/AdvReac Type Severity Reaction Status Date / Time bee venom protein (honey bee) AdvReac Mild edema Verified 04/14/24 18:22 PFSH PFSH Social History Smoking Status: Current some day smoker Do you use any of these nicotine containing products: Vaping Products Second hand tobacco smoke exposure: No How often do you have a drink containing alcohol: never AUDIT-C Alcohol total score: 0 Non-prescribed substance use: denies use and former substance user Non-prescribed substance use details: clean since 2009 service: No Exam Narrative: Exam Narrative: Alert and oriented. No acute distress. Kept very busy by her toddler daughter who came with her by ambulance. Examination of her left foot shows a 2 cm laceration compromising epidermis and dermis on the plantar surface on the distal aspect of the 4th metatarsal. There is no compromise of underlying tissue. There is no active bleeding at this time. Const: Vital Signs, click to edit/add: Vital Signs - 24 hr 04/15/24 14:45 Temperature 98.3 F Pulse Rate [Right Pulse Oximeter] 96 Respiratory Rate 18 Blood Pressure [Ri ght Upper Arm] 140/100 H Pulse Oximetry 94 Oxygen Delivery Me thod Room Air Documenting provider has reviewed patient's vital signs: yes Course Course ED Course: X-ray to check for foreign body is ordered. I discussed stitches versus Steri-Strips verses intermittent gluing for this particular wound. We certainly are in a window where sutures would be acceptable. However, given the fact that it is not significantly deep and risk of scar tissue formation with pain with walking I would recommend against any stitches. Instead I would do Steri-Strips. Patient was thinking that these would not work well for her. And worried that they would fall off. He thus I did suggest Dermabond but not will throughout the entire wound. Given the fact that this is a foot this is a higher risk for infection. Would recommend gluing on the edges and in the middle allowing some the ability to drain is a infection with her., patient feels comfortable with this plan. Reevaluation(s) Reevaluation #1: Dermabond placed on the wound edges and in the very center with good wound approximation. Prior to this did ask nursing staff to irrigate with normal saline. Vital Signs Vital signs: Initial Vital Signs Temperature 98.3 F 04/15/24 14:45 Temperature Source Temporal Artery Scan 04/15/24 14:45 Pulse Rate 96 04/15/24 14:45 Respiratory Rate 18 04/15/24 14:45 Blood Pressure 140/100 H 04/15/24 14:45 Blood Pressure Mean 113 H 04/15/24 14:45 Blood Pressure Position Sitting 04/15/24 14:45 Pulse Oximetry 94 04/15/24 14:45 Oxygen Delivery Method Room Air 04/15/24 14:45 Vital Signs Temperature 98.3 F 04/15/24 14:45 Pulse Rate 96 04/15/24 14:45 Respiratory Rate 18 04/15/24 14:45 Blood Pressure 140/100 H 04/15/24 14:45 Pulse Oximetry 94 04/15/24 14:45 Oxygen Delivery Method Room Air 04/15/24 14:45 Temperature 98.3 F 04/15/24 14:45 Pulse Rate 96 04/15/24 14:45 Respiratory Rate 18 04/15/24 14:45 Blood Pressure 140/100 H 04/15/24 14:45 Pulse Oximetry 94 04/15/24 14:45 Oxygen Delivery Method Room Air 04/15/24 14:45 MDM - Wound/Laceration MDM Narrative Medical decision making narrative: 1. Left Foot laceration-return for signs or symptoms of infection. Otherwise limit any soaking of the foot. Do not swim. Ibuprofen or Tylenol as needed for discomfort. Do not pull off the Dermabond glue. 2. Disposition-home at this time. Return as needed. Tetanus up-to-date Medical Records Attestation: I reviewed the patient's medical records. Imaging Data Foot x-ray: Attestation: I have reviewed the pertinent imaging results. My impression: I do not note any foreign body Radiologist's impression: Findings/Impression: Bones: Alignment is normal. No fractures or bone lesions. Joint spaces: Unremarkable. Soft tissues: Unremarkable. No radiopaque foreign body seen. Discharge Plan Discharge Clinical Impression: Laceration Patient Disposition: Home, Self-Care Condition: Improved Additional Instructions: Monitor for infection. You may shower but please to not soak this wound until it is healed. The Dermabond will start turning into a purple color. Please try to just leave it in place. Ibuprofen or Tylenol as needed for discomfort. Return for worsening symptoms. Prescriptions: No Action lamotrigine 25 mg tablet PO clonazepam 1 mg tablet 1 mg PO BID PRN dextroamphetamine-amphetamine 15 mg capsule,extended release 24hr 1 cap PO QAM duloxetine 20 mg capsule,delayed release(DR/EC) 40 mg PO DAILY vilazodone [Viibryd] 10 mg tablet 10 mg PO DAILY ketorolac 10 mg tablet 10 mg PO Q8H 5 Days Qty: 15 0RF Follow Up/Referrals: Sara Centeno MD [Primary Care Provider] - Stand Alone Forms: [employer] Info Instructions
--- NOTE | 2024-04-15 15:11 | CRLHL7_ITS ---
For Patients: As a result of the Cures Act, medical imaging exams and procedure reports are released immediately into your electronic medical record. You may view this report before your referring provider. If you have questions, please contact your health care provider. Indication: Assess for foreign body Technique: Three views left foot Comparison: None Findings/Impression: Bones: Alignment is normal. No fractures or bone lesions. Joint spaces: Unremarkable. Soft tissues: Unremarkable. No radiopaque foreign body seen. Dictated by Marty Redding MD @ 04/15/2024 3:35:29 PM (Electronically Signed)
== END 2024-04-15 16:03 | disposition home or self-care (01) ==
PROVIDERS: Emergency Provider Family Medicine
DX: S91.312A Laceration without foreign body, left foot, initial encounter (principal); W25.XXXA Contact with sharp glass, initial encounter
CPT/HCPCS: 12001; 73620; 99283

== ENCOUNTER 2024-05-14 17:37 | Emergency (ER) | payer BC, SELFPAY ==
[2024-05-14 17:49] VITALS: BP 111/72; PULSE 105; RESP 16; TEMP 36.7; O2SAT 97; BMI 26.6
[2024-05-14 18:02] LABS: Appearance Urine Clear (Clear); Bilirubin Urine Negative (Negative); Blood Urine 2+ (Negative); Color Urine Yellow (Yellow); Glucose Urine Negative (Negative); Ketones Urine Negative (Negative); Leukocyte Esterase Urine Trace (Negative); Nitrite Urine Positive (Negative); Protein Urine Trace (Negative); Specific Gravity Urine >= 1.030 (1.000-1.030); Urobilinogen Urine 0.2 (0.2-1.0); pH Urine 5.5 (5.0-8.5)
--- NOTE | 2024-05-14 18:19 | ED_ITS ---
HPI - General Adult General Chief complaint: Urogenital Problems, Female Stated complaint: dizzy, disoriented Time Seen by Provider: 05/14/24 17:51 History of Present Illness HPI narrative: dizzy, disoriented, confused at times. pain bilat low back, feels hot and cold. states urine might smell like a uti, can't completely empty bladder, tired. symptoms x 1 day. also when breathing, feels like can' t get lungs full. 33-year-old woman presenting to the emergency department with concern of just feeling unwell. Worse today. She has been having some dysuria for admittedly now about a week. She is a little apologetic that she has been seen sooner noting that she does have a toddler. Today's been feeling more combination of dizziness and lightheadedness and soreness across her low back. She did have sweats earlier alternating between cold and hot. Does admit that her urine smells like she might have urinary tract infection. She is also feeling like she can not completely empty her bladder. No cough a not actually short of breath but feels today like she can not get her lungs full; describing kind of a sense of air hunger. No measured fever. No actual abdominal pain. Does reports history of dizziness and/syncope with illness in the past. Related Data Home Medications ?Medication ?Instructions ?Recorded ?Confirmed clonazepam 1 mg tablet 1 mg PO BID PRN 02/23/24 05/14/24 dextroamphetamine-amphetamine ER 1 cap PO QAM 02/23/24 05/14/24 15 mg 24hr capsule,extend release lamotrigine 25 mg tablet PO 04/14/24 Allergies Allergy/AdvReac Type Severity Reaction Status Date / Time bee venom protein (honey bee) AdvReac Mild edema Verified 04/14/24 18:22 Review of Systems Status of ROS: Reports: 6 or more systems reviewed and unremarkable except as noted in History and below PFSH PFS Social History Smoking Status: Current some day smoker Do you use any of these nicotine containing products: Vaping Products Second hand tobacco smoke exposure: No How often do you have a drink containing alcohol: never AUDIT-C Alcohol total score: 0 Non-prescribed substance use: denies use and former substance user Non-prescribed substance use details: clean since 2009 service: No Exam Narrative: Exam Narrative: Brow furrowed in apparent discomfort. Pleasant though. Cranial nerves 2-12 intact. No nystagmus. Extraocular movements appear to be full. TMs are clear bilaterally. Lungs are clear. Equal expansion excursion of the chest wall. Heart in elevated rate and regular rhythm without murmur rub or gallop. Skin is warm and dry the numerous tattoos. Extremities are without edema. Well- perfused. Abdomen is soft and nontender. She is somewhat sore though to palpation throughout the low back particularly the musculature. Const: Vital Signs, click to edit/add: Vital Signs - 24 hr 05/14/24 17:49 Temperature 98.1 F Pulse Rate [Pulse Oximeter] 105 H Respiratory Rate 16 Blood Pressure [Ri ght Upper Arm] 111/72 Pulse Oximetry 97 Oxygen Delivery Me thod Room Air Documenting provider has reviewed patient's vital signs: yes Course Vital Signs Vital signs: Initial Vital Signs Temperature 98.1 F 05/14/24 17:49 Temperature Source Temporal Artery Scan 05/14/24 17:49 Pulse Rate 105 H 05/14/24 17:49 Respiratory Rate 16 05/14/24 17:49 Blood Pressure 111/72 05/14/24 17:49 Blood Pressure Mean 85 05/14/24 17:49 Blood Pressure Position Sitting 05/14/24 17:49 Pulse Oximetry 97 05/14/24 17:49 Oxygen Delivery Method Room Air 05/14/24 17:49 Vital Signs Temperature 98.1 F 05/14/24 17:49 Pulse Rate 105 H 05/14/24 17:49 Respiratory Rate 16 05/14/24 17:49 Blood Pressure 111/72 05/14/24 17:49 Pulse Oximetry 97 05/14/24 17:49 Oxygen Delivery Method Room Air 05/14/24 17:49 Temperature 98.1 F 05/14/24 17:49 Pulse Rate 84 05/14/24 20:56 Respiratory Rate 16 05/14/24 20:56 Blood Pressure 119/80 05/14/24 20:56 Pulse Oximetry 97 05/14/24 17:49 Oxygen Delivery Method Room Air 05/14/24 17:49 Medications Administered Medications: Discontinued Medications Generic Name Dose Route Start Last Admin Trade Name Freq PRN Reason Stop Dose Admin Sodium Chloride 500 mls @ 1,000 mls/hr 05/14/24 18:47 05/14/24 20:00 0.9 % Sodium Chloride 500 Ml IV 05/14/24 19:16 Infused .Q30M ONE Infusion Ceftriaxone Sodium 1 gm/ 100 mls @ 200 mls/hr 05/14/24 18:48 05/14/24 19:06 Sodium Chloride IVPB 05/14/24 18:49 200 mls/hr ONCE ONE Administration Sodium Chloride 500 mls @ 1,000 mls/hr 05/14/24 19:32 05/14/24 20:13 0.9 % Sodium Chloride 500 Ml IV 05/14/24 20:01 1,000 mls/hr .Q30M ONE Administration Ketamine HCl 20 mg/ Sodium 100.2 mls @ 200.4 mls/hr 05/14/24 19:32 05/14/24 20:14 Chloride IVPB 05/14/24 19:33 200.4 mls/hr ONCE ONE Administration Ketorolac Tromethamine 15 mg 05/14/24 18:47 05/14/24 19:06 Ketorolac 15 Mg/Ml Inj IVP 05/14/24 18:48 15 mg ONCE ONE Administration Medical Decision Making MDM Narrative Medical decision making narrative: I think would benefit from some IV fluids. Did do a bladder scan summer between 70-100 mL prior to my seeing her. Urinalysis was pending at initial conversation. Could certainly be symptomatic from prolonged cystitis. May have other viral process going on. Myalgias could represent viral etiology. A pyelonephritis in differential as well. Does not appear to have cardiac problem other than is slightly tachycardic. Lungs appear to be clear. This appears to be more of a sensation than dysfunction. Oxygenating well. Did propose IV fluids and pending results of urinalysis further treatment. As I am placing orders urinalysis returns and looks to be positive. Nitrite positive presumably Gram-negative organism. Given degree of symptoms will give IV fluids ketorolac and dose of Rocephin. Symptoms presumably from urinary tract origin at this point. Will also just check labs for baseline or other red flags. Labs are reassuring with normal white count. Pyelonephritis less likely. While improved still with headache on would appreciate further pain relief. Giving another bolus of normal saline and discussed potential benefit of pain dose ketamine. She would appreciate ketamine is familiar with this as helpful treatment for her for depression. On reassessment an is markedly improved and feels can more comfortably go home. Will be receiving cephalexin outpatient pending urine culture results. See patient discharge plan for further discussion Medical Records Medical records reviewed: Yes I reviewed the patient's medical records Lab Data Lab results reviewed: Yes I reviewed the patient's lab results Labs: Lab Results 05/14/24 05/14/24 05/14/24 Range/Units 19:10 19:32 Unknown WBC 8.26 (4.50-11.00) K/uL RBC 4.18 (4.00-5.20) m/uL Hgb 13.5 (12.0-16.0) gm/dL Hct 38.3 (33.0-51.0) % MCV 92 (80-100) fL MCH 32 (26-34) pg MCHC 35 (32-36) gm/dL RDW Coeff of Luz 11.7 (11.5-15.5) % Plt Count 236 (140-440) K/uL Neut % (Auto) 55.8 (42.0-72.0) % Lymph % (Auto) 39.2 (20-44) % [place] % (Auto) 4.2 (0.0-11.0) % Eos % (Auto) 0.2 (0.0-7.0) % Baso % (Auto) 0.1 (0.0-3.0) % Neut # (Auto) 4.60 (1.7-7.0) K/uL Lymph # (Auto) 3.24 H (0.90-2.90) K/uL [place] # (Auto) 0.30 (0.00-0.90) K/UL Eos # (Auto) 0.02 (0.00-0.50) K/uL Baso # (Auto) 0.01 (0.00-0.30) K/uL Abs Immat Gran (auto) 0.04 (0.00-0.30) K/uL Imm/Tot Granulo (auto) 0.5 % Sodium 137 (135-149) mmol/L Potassium 3.6 (3.6-5.1) mmol/L Chloride 104 (96-114) mmol/L Carbon Dioxide 21 (20-32) mmol/L Anion Gap 12 (7-15) mEq/L BUN 14 (5-24) mg/dL Creatinine 0.8 (0.5-1.5) mg/dL Estimated Creat Clear 89.16 Estimated GFR 99 ml/min Glucose 92 (60-115) mg/dL Calcium 9.6 (8.4-10.6) mg/dL C-Reactive Protein < 0.5 L (0.5-1.0) mg/dL Urine Color Yellow (Yellow) Urine Appearance Clear (Clear) Urine pH 5.5 (5.0-8.5) Ur Specific [place] >= 1.030 (1.000-1.030) Urine Protein Trace A (Negative) Urine Glucose (UA) Negative (Negative) Urine Ketones Negative (Negative) Urine Blood 2+ A (Negative) Urine Nitrite Positive A (Negative) Urine Bilirubin Negative (Negative) Urine Urobilinogen 0.2 (0.2-1.0) Ur Leukocyte Esterase Trace A (Negative) Urine RBC 2-5 A (0-2) Urine WBC 5-10 A (0-5) Ur Squamous Epith Cells Few (None-Few) Urine Bacteria Many A (None) Lab Acknowledgement Test Added Discharge Plan Discharge Clinical Impression: Urinary tract infection, Malaise, Low back pain Instructions: Urinary Tract Infection in Women (DC) Additional Instructions: Focus on hydration with water. Can take ibuprofen or acetaminophen. Maybe naproxen instead of ibuprofen? Urine culture will be pending here. We will call you if need to change course with antibiotics. Return for marked increase in persistent pain, repeated vomiting, associated fever. Prescribing cephalexin from [facility]. Prescriptions: No Action lamotrigine 25 mg tablet PO clonazepam 1 mg tablet 1 mg PO BID PRN dextroamphetamine-amphetamine 15 mg capsule,extended release 24hr 1 cap PO QAM Follow Up/Referrals: Sara Centeno MD [Primary Care Provider] - Stand Alone Forms: [employer] Info Instructions
[2024-05-14 18:45] LABS: Bacteria Urine Many; Squamous Epithelial Cell Urine Few (None-Few)
[2024-05-14] MEDS: cefTRIAXone 1 GM in 0.9 % SODIUM CHLORIDE Mini-bag 100 ML IVPB (19:06)
[2024-05-14] MEDS: KETOROLAC 15 MG/ML inj IVP (19:06)
[2024-05-14] MEDS: 0.9 % SODIUM CHLORIDE 500 ML 500 ML 1000 ML IV ×2 (19:06→20:13)
[2024-05-14 19:27] LABS: Basophils Absolute Auto 0.01 K/uL (0.00-0.30); Basophils Percent Auto 0.1 % (0.0-3.0); Eosinophils Absolute Auto 0.02 K/uL (0.00-0.50); Eosinophils Percent Auto 0.2 % (0.0-7.0); Hematocrit 38.3 % (33.0-51.0); Hemoglobin* 13.5 gm/dL (12.0-16.0); Immature Granulocytes Abs Auto 0.04 K/uL (0.00-0.30); Immature Granulocytes Pct Auto 0.5 %; Lymphocytes Absolute Auto 3.24 K/uL (0.90-2.90); Lymphocytes Percent Auto 39.2 % (20-44); Mean Corpuscular HGB Conc 35 gm/dL (32-36); Mean Corpuscular Hemoglobin 32 pg (26-34); Mean Corpuscular Volume 92 fL (80-100); Monocytes Percent Auto 4.2 % (0.0-11.0); Neutrophils Percent Auto 55.8 % (42.0-72.0); Platelet Count* 236 K/uL (140-440); RDW Coefficient of Variation % 11.7 % (11.5-15.5); Red Blood Count 4.18 m/uL (4.00-5.20); White Blood Count* 8.26 K/uL (4.50-11.00)
[2024-05-14 19:36] LABS: C Reactive Protein* < 0.5 mg/dL (0.5-1.0)
[2024-05-14 19:38] LABS: Slide Review Reflex No
[2024-05-14 19:47] LABS: Chloride* 104 mmol/L (96-114); Potassium* 3.6 mmol/L (3.6-5.1); Sodium* 137 mmol/L (135-149)
[2024-05-14 19:50] LABS: Anion Gap 12 mEq/L (7-15); Blood Urea Nitrogen* 14 mg/dL (5-24); Calcium* 9.6 mg/dL (8.4-10.6); Carbon Dioxide* 21 mmol/L (20-32); Creatinine* 0.8 mg/dL (0.5-1.5); Est. Creatinine Clearance* 89.16; Estimated Glomerular Filt Rate 99 ml/min; Glucose* 92 mg/dL (60-115)
[2024-05-14] MEDS: KETAMINE 50 MG/0.5 ML 20 MG in 0.9 % SODIUM CHLORIDE 100 ml 100 ML 200.4 MG IVPB (20:14)
[2024-05-14 20:56] VITALS: BP 119/80; PULSE 84; RESP 16
== END 2024-05-14 20:57 | disposition home or self-care (01) ==
PROVIDERS: Emergency Provider Family Medicine
DX: N39.0 Urinary tract infection, site not specified (principal); M54.50 Low back pain, unspecified
CPT/HCPCS: 36415; 51798; 80048; 81001; 85025; 86140; 87086; 87186; 96365; 96366; 96375; 99284; J0696; J1885; J3490; J7030

== ENCOUNTER 2024-05-22 12:42 | Outpatient (CLI) | payer BC, SELFPAY | END 2024-05-22 12:43 | disposition home or self-care (01) | LOC: AMB 05-23 01:57 | PROVIDERS: Visit Provider Internal Medicine | DX: R07.89 Other chest pain (principal) | CPT/HCPCS: A0425; A0427 ==

== ENCOUNTER 2024-05-22 13:15 | Emergency (ER) | payer BC, SELFPAY ==
[2024-05-22] VITALS (14 sets, daily range): BP systolic 106–111; BP diastolic 75–86; PULSE 63–93; RESP 16; TEMP 36.6; O2SAT 95–100; BMI 28.3
--- NOTE | 2024-05-22 13:39 | CRLHL7_ITS ---
For Patients: As a result of the Century Cures Act, medical imaging exams and procedure reports are released immediately into your electronic medical record. You may view this report before your referring provider. If you have questions, please contact your health care provider. INDICATION: Chest pain. TECHNIQUE: Chest 1 views. COMPARISON: None. FINDINGS: Cardiovasculature and mediastinum: Heart size is normal. Unremarkable mediastinum. Lungs and pleural spaces: Lungs are clear. No sign of infiltrate or mass. No sign of pleural effusion. No pneumothorax. Bones and soft tissues: No significant findings. IMPRESSION: No acute or significant findings. Dictated by Suzy Harris MD @ 05/22/2024 2:47:51 PM (Electronically Signed)
--- NOTE | 2024-05-22 13:41 | ED_ITS ---
HPI - Chest Pain General Chief Complaint: Chest Pain Stated Complaint: Chest pain Time Seen by Provider: 05/22/24 13:32 History of Present Illness HPI narrative: Patient is a 33-year-old woman who was at home watching television when she developed severe left-sided chest pain with radiation to her neck. Patient called for an ambulance immediately and was brought into the emergency room she did receive sublingual nitroglycerin and oral aspirin and route. There has been no change in the location of the discomfort but the pain is fallen from 6 at and 110. Patient's only past medical history is significant for anxiety and ADHD. She is very strong family history of heart disease. Patient does use tobacco but has had no personal history of heart problems. She has otherwise been in her usual state of health recently describes no cough no shortness a breath orthopnea no diaphoresis no lower extremity edema. She has had no similar symptoms previously. Related Data Home Medications ?Medication ?Instructions ?Recorded ?Confirmed clonazepam 1 mg tablet 1 mg PO BID PRN 02/23/24 05/22/24 dextroamphetamine-amphetamine ER 1 cap PO QAM 02/23/24 05/22/24 15 mg 24hr capsule,extend release lamotrigine 25 mg tablet 25 mg PO 04/14/24 Allergies Allergy/AdvReac Type Severity Reaction Status Date / Time bee venom protein (honey bee) AdvReac Mild edema Verified 05/22/24 13:24 Review of Systems Status of ROS Reports: 10 or more systems reviewed and unremarkable except as noted in History and below [facility] Medical History Anxiety ?F41.9 - Anxiety disorder, unspecified (ICD-10) ADHD ?F90.9 - Attention-deficit hyperactivity disorder, unspecified type (ICD-10) Social History Smoking Status: Current some day smoker Do you use any of these nicotine containing products: Vaping Products Second hand tobacco smoke exposure: No How often do you have a drink containing alcohol: never AUDIT-C Alcohol total score: 0 Non-prescribed substance use: denies use and former substance user Non-prescribed substance use details: clean since 2009 service: No Exam Narrative Exam Narrative: EXAM GENERAL: Patient appears comfortable and well. She is talking on her phone and asking for her purse. EYES: No scleral icterus. ENT: Tympanic membranes and oropharynx normal. THYROID: no thyroid nodules or thyromegaly. LYMPH: No supraclavicular or cervical lymphadenopathy. SKIN: Visible skin seen during exam normal or with benign process only. EXT: No dependent lower extremity pedal edema. HEART: Regular rate and rhythm with no murmurs, rubs, or gallops. LUNGS: Clear to auscultation bilaterally with no crackles or wheezes. ABD: Soft, non tender, non distended. PSYCH: Good eye contact, speech is not pressured. Neurologic cranial nerves 2-12 grossly intact no focal defects. Const Vital Signs, click to edit/add: Vital Signs - 24 hr 05/22/24 13:18 Temperature 97.8 F Pulse Rate [Pulse Oximeter] 93 Respiratory Rate 16 Blood Pressure [Right Upper Arm] 111/86 Pulse Oximetry 96 Oxygen Delivery Method Room Air Course Course ED Course: Patient seen and examined. CBC troponin basic metabolic panel D-dimer EKG chest x-ray pending. Vital Signs Vital signs: Initial Vital Signs Temperature 97.8 F 05/22/24 13:18 Temperature Source Temporal Artery Scan 05/22/24 13:18 Pulse Rate 93 05/22/24 13:18 Respiratory Rate 16 05/22/24 13:18 Blood Pressure 111/86 05/22/24 13:18 Blood Pressure Mean 94 05/22/24 13:18 Blood Pressure Position Sitting 05/22/24 13:18 Pulse Oximetry 96 05/22/24 13:18 Oxygen Delivery Method Room Air 05/22/24 13:18 Vital Signs Temperature 97.8 F 05/22/24 13:18 Pulse Rate 93 05/22/24 13:18 Respiratory Rate 16 05/22/24 13:18 Blood Pressure 111/86 05/22/24 13:18 Pulse Oximetry 96 05/22/24 13:18 Oxygen Delivery Method Room Air 05/22/24 13:18 Temperature 97.8 F 05/22/24 13:18 Pulse Rate 93 05/22/24 13:18 Respiratory Rate 16 05/22/24 13:18 Blood Pressure 111/86 05/22/24 13:18 Pulse Oximetry 96 05/22/24 13:18 Oxygen Delivery Method Room Air 05/22/24 13:18 Medications Administered Medications: Discontinued Medications Generic Name Dose Route Start Last Admin Trade Name Harinder PRN Reason Stop Dose Admin Acetaminophen 1,000 mg 05/22/24 14:36 05/22/24 14:39 Acetaminophen 500 Mg Tablet PO 05/22/24 14:37 1,000 mg ONCE ONE Administration MDM - Chest Pain MDM Narrative Medical decision making narrative: Patient is a 33-year-old woman who presents with the abrupt onset of left-sided chest pain prior to arrival. She has an EKG done at the time of presentation which is negative for ischemia. She also had aspirin and nitroglycerin given in route. Patient is largely asymptomatic at this point troponin is negative x2 90 minutes apart. Chest x-ray is unremarkable upon my review electrolytes CBC also unremarkable. D-dimer is negative. I have at this time provided reassurance. She will continue to monitor symptoms follow-up with her primary care in the next week. Differential diagnosis includes but not limited to aortic dissection acute myocardial infarction pulmonary embolism pneumothorax unstable angina myocarditis pericarditis chest wall strain anxiety. Lab Data Labs: Lab Results 05/22/24 05/22/24 Range/Units 13:51 14:56 WBC 6.24 (4.50-11.00) K/uL RBC 4.17 (4.00-5.20) m/uL Hgb 13.2 (12.0-16.0) gm/dL Hct 39.1 (33.0-51.0) % MCV 94 (80-100) fL MCH 32 (26-34) pg MCHC 34 (32-36) gm/dL RDW Coeff of Luz 11.8 (11.5-15.5) % Plt Count 237 (140-440) K/uL Neut % (Auto) 61.2 (42.0-72.0) % Lymph % (Auto) 32.2 (20-44) % [place] % (Auto) 5.3 (0.0-11.0) % Eos % (Auto) 1.1 (0.0-7.0) % Baso % (Auto) 0.2 (0.0-3.0) % Neut # (Auto) 3.82 (1.7-7.0) K/uL Lymph # (Auto) 2.01 (0.90-2.90) K/uL [place] # (Auto) 0.30 (0.00-0.90) K/UL Eos # (Auto) 0.07 (0.00-0.50) K/uL Baso # (Auto) 0.01 (0.00-0.30) K/uL Abs Immat Gran (auto) 0.00 (0.00-0.30) K/uL Imm/Tot Granulo (auto) 0.0 % D-Dimer Quant (PE/DVT) < 0.27 (0.00-0.50) ug/ml Sodium 140 (135-149) mmol/L Potassium 4.4 (3.6-5.1) mmol/L Chloride 108 (96-114) mmol/L Carbon Dioxide 24 (20-32) mmol/L Anion Gap 8 (7-15) mEq/L BUN 8 (5-24) mg/dL Creatinine 0.9 (0.5-1.5) mg/dL Estimated Creat Clear 79.25 Estimated GFR 86 ml/min Glucose 98 (60-115) mg/dL Calcium 9.7 (8.4-10.6) mg/dL Troponin I < 0.01 L (0.01-0.04) ng/mL Ur Drug Screen Comment See Note Discharge Plan Discharge Clinical Impression: Anxiety Instructions: Chest Pain (ED) Additional Instructions: Continue to monitor symptoms carefully. Ice and heat Tylenol Motrin Rest Follow-up with your doctor this week. Activity Level: No Restrictions Discharge Diet: Regular Prescriptions: No Action lamotrigine 25 mg tablet 25 mg PO clonazepam 1 mg tablet 1 mg PO BID PRN dextroamphetamine-amphetamine 15 mg capsule,extended release 24hr 1 cap PO QAM Follow Up/Referrals: Sara Centeno MD [Primary Care Provider] -
[2024-05-22 14:00] LABS: Basophils Absolute Auto 0.01 K/uL (0.00-0.30); Basophils Percent Auto 0.2 % (0.0-3.0); Eosinophils Absolute Auto 0.07 K/uL (0.00-0.50); Eosinophils Percent Auto 1.1 % (0.0-7.0); Hematocrit 39.1 % (33.0-51.0); Hemoglobin* 13.2 gm/dL (12.0-16.0); Lymphocytes Absolute Auto 2.01 K/uL (0.90-2.90); Lymphocytes Percent Auto 32.2 % (20-44); Mean Corpuscular HGB Conc 34 gm/dL (32-36); Mean Corpuscular Hemoglobin 32 pg (26-34); Mean Corpuscular Volume 94 fL (80-100); Monocytes Percent Auto 5.3 % (0.0-11.0); Neutrophils Absolute Auto 3.82 K/uL (1.7-7.0); Neutrophils Percent Auto 61.2 % (42.0-72.0); Platelet Count* 237 K/uL (140-440); RDW Coefficient of Variation % 11.8 % (11.5-15.5); Red Blood Count 4.17 m/uL (4.00-5.20); White Blood Count* 6.24 K/uL (4.50-11.00)
[2024-05-22 14:03] LABS: Slide Review Reflex No
[2024-05-22 14:10] LABS: Chloride* 108 mmol/L (96-114); Sodium* 140 mmol/L (135-149)
[2024-05-22 14:11] LABS: Potassium* 4.4 mmol/L (3.6-5.1)
[2024-05-22 14:13] LABS: Creatinine* 0.9 mg/dL (0.5-1.5); Est. Creatinine Clearance* 79.25; Estimated Glomerular Filt Rate 86 ml/min
[2024-05-22 14:14] LABS: Anion Gap 8 mEq/L (7-15); Blood Urea Nitrogen* 8 mg/dL (5-24); Calcium* 9.7 mg/dL (8.4-10.6); Carbon Dioxide* 24 mmol/L (20-32); Glucose* 98 mg/dL (60-115)
[2024-05-22 14:32] LABS: D Dimer Quantitative* < 0.27 ug/ml (0.00-0.50); Troponin I* < 0.01 ng/mL (0.01-0.04)
[2024-05-22] MEDS: ACETAMINOPHEN 500 MG TABLET 1000 MG PO (14:39)
[2024-05-22 15:11] LABS: Amphetamine Screen Urine Negative (Negative); Barbiturate Screen Urine Negative (Negative); Benzodiazepines Screen Urine POSITIVE (Negative); Cannabinoid Screen Urine Negative (Negative); Cocaine Screen Urine Negative (Negative); Methadone Screen Urine Negative (Negative); Methamphetamines Screen Urine Negative (Negative); Opiate Screen Urine Negative (Negative); Oxycodone Screen Urine Negative (Negative); Phencyclidine Screen Urine Negative (Negative); Tricyclic Antidepressant Urine Negative (Negative)
== END 2024-05-22 16:02 | disposition home or self-care (01) ==
LOC: ED 14:06
PROVIDERS: Emergency Provider Internal Medicine
DX: R07.9 Chest pain, unspecified (principal); F41.9 Anxiety disorder, unspecified
CPT/HCPCS: 36415; 71045; 80048; 80306; 84484; 85025; 85379; 93005; 94761; 99283; 99284; 99285; A9270

== ENCOUNTER 2024-07-25 13:16 | Emergency (ER) | payer BC, SELFPAY ==
--- OUTSIDE RECORDS SUMMARY | 2024-07-25 13:18 | XMS_ITS | Referral Summary ---
Author Organization [facility] Address [address] [place] [id number] Care Team Providers Care Facility Worker Name Role Phone Elsewhere, Pcp Primary Care Provider Unavailabl e Source Comments Patient records contain information from all sites at [facility]. For routine questions regarding patient records, call [phone] during business hours, M-F 8:00 AM - 5:00 PM Central Time. Record requests for emergency care only can be directed to [phone] at any time.[facility] Allergies Active Allergy Reactions Criticality Noted Date Comments Bee Venom Protein (Honey Bee) Anxiety,Other (see comments),Hives (Reselect Reaction),Itching,Rash 01/08/2021 Medications * This document contains information received from the source organization and may not represent a complete record from that organization. ibuprofen (ADVIL,MOTRIN) 600 mg tablet TAKE 1 TABLET BY MOUTH EVERY 6 HOURS DO NOT EXCEED 3200MG OF IBUPROFEN IN 24 HOURS 2 Active acetaminophen (TYLENOL) 500 mg tablet Take 500 mg by mouth every 6 (six) hours as needed for pain. Takes 2 Tablets by mouth every six hours or when needed. Active meloxicam (MOBIC) 7.5 mg tabletIndicatio ns:Radiculopath y,Rotator Cuff Disorder Right Take 1 tablet (7.5 mg total) by mouth 2 (two) times a day. 30 tablet 2 Active clonazePAM (KlonoPIN) 1 mg tablet Take 0.5 mg by mouth daily as needed. 3 Active clonazePAM (KlonoPIN) 0.5 mg tablet Take 0.5 mg by mouth daily. 3 Active Active Problems Problem Noted Date Diagnosed Date Fatigue 03/17/2023 Encounter For Supervision Of Normal Unspecified Trimester 02/08/2021 Overview (09/10/2021): G 5 P 3, x3 KEYLA: September 28, 2021 by [facility] FOB: Rubella immune, Rh O+ anatomy scan: Normal, female OGTT: pass, 114 Hb at 28 weeks: 10.1 Tdap on: August 07, 2021 GBS: negative COVID: vaccine counseling 04/13, declines BSUS by Dr. Boothe on 08/07: 49th%ile eIOL scheduled for 09/21 at 0730 Issues: 1. Low risk . 2. Desires permanent contraception, consent signed February 08, 2021. 3. Started Zoloft on July 27. Dose increased to 75 mg daily on 09/03. Mood better as of 09/10. Immunizations Immunization Administration Dates Next Due 4vHPV (discontinued) 07/02/2012 Influenza TIV (IM) 03/23/2010 PPD Test 10/27/2015,07/02/2013 Tdap 08/07/2021,02/26/2016 influenza trivalent vaccine (6 months and older) (PF) 03/23/2010 Social History Tobacco Use Types Packs/Day Years Used Date Smoking Tobacco: Former Cigarettes Q uit: 11/21/2020 Smokeless Tobacco: Never Tobacco Cessation:Counseling Given: Not Answered Alcohol Use Standard Drinks/Week Comments Not Currently 0 (1 standard drink = 0.6 oz pur e alcohol) Humiliation, Afraid, Rape, and Kick questionnair e Answer Date Recorded Within the last year, have y ou been afraid of your partner or ex-partner? No 01/29/2023 Within the last year, have y ou been humiliated or emotionally abused in other ways by your partner or ex-partner? No Within the last year, have y ou been kicked, hit, slapped, or otherwise physically hurt by your partner or ex-partner? No 01/29/2023 Within the last year, have y ou been raped or forced to have any kind of sexual activity by your partner or ex-partner? No 01/29/2023 Social Connection and Isolat ion Panel [NHANES] Answer Date Recorded In a typical week, how many times do you talk on the phone with family, friends, or neighbors? More than three times a week 07/04/2021 How often do you get togethe r with friends or relatives? Twice a week 07/04/2021 How often do you attend chur ch or yazdanism services? More than 4 times per year 07/04/2021 Do you belong to any clubs o r organizations such as catholic groups, unions, fraternal or athletic groups, or school groups? No 07/04/2021 How often do you attend meet ings of the clubs or organizations you belong to? Never 07/04/2021 Are you , , di vorced, , never , or living with a partner? Living with partner 07/04/2021 AUDIT-C Answer Date Recorded Q1: How often do you have a drink containing alc ohol? Never 07/04/2021 Average Number of Drinks Not on file 022 Frequency of Binge Drinking Not on file 10/2021 Overall Financial Resource Strain (CARDIA) Answe r Date Recorded How hard is it for you to pa y for the very basics like food, housing, medical care, and heating? Somewhat hard 01/29/2023 PHQ-2 Answer Date Recorded PHQ-2 Score 3 01/29/2023 [facility] - Occupational Stress Questionnaire Answer Date Recorded Do you feel stress - tense, restless, nervous, or anxious, or unable to sleep at night because your mind is troubled all the time - these days? Very much 07/04/2021 Exercise Vital Sign Answer Date Recorde d On average, how many days pe r week do you engage in moderate to strenuous exercise (like a brisk walk)? 3 days Minutes of Exercise per Session Not on file 01/29/2023 Hunger Vital Sign Answer Date Recorded Within the past 12 months, y ou worried that your food would run out before you got the money to buy more. Never true 01/30/20 23 Ran Out of Food in the Last Year Not on file 01/29/2023 PRAPARE - Transportation Answer Date Re corded In the past 12 months, has l ack of transportation kept you from medical appointments or from getting medications? No 07/2022 In the past 12 months, has l ack of transportation kept you from meetings, work, or from getting things needed for daily living? No 01/29/2023 Depression Answer Date Recor ded PHQ-9 Total Score (max 27) 13 01/29 Nutrition Answer Date Recorded Nutrition: EVOO Fat Source No 01/29 On average, how many serving s of fruits and vegetables do you eat per day (serving size is equal to 1 cup or approximately the size of a tennis ball)? 0-2 01/29/2023 Dental Answer Date Recorded Dental: Regular Dentist Yes 07/04/19 Employment Answer Date Recorded Employment status Employed and actively working without restrictions 01/29/2023 Housing Stability Answer Date Recorded What is your living situation today? I h ave a place to live today, but I am worried about losing it in the future 01/29/2023 Education Answer Date Recorded What is the highest level of school you have completed or the highest degree you have received? GED or equivalent 03/2021 Comments No Sex and Gender Information Value Date Recorded Sex Assigned at Female 07/04/2021 3:43 PM [employer] Legal Sex Female 7:11 PM [employer] Gender Identity Female 07/04/2021 3:43 PM [employer] Sexual Orientation Straight 05/08/2021 2: 48 PM [employer] Occupation Industry Job Start Date Job End Date Not on file Not on file Not on file Not on file Last Filed Vital Signs Vital Sign Reading Time Taken Comments Blood Pressure 115/76 03/29/2023 4:55 PM CDT Pulse 95 03/29/2023 4:55 PM CDT Temperature 36.8 C (98.2 F) 03/29/2023 4:55 PM CDT Respiratory Rate 20 03/29/2023 4:55 PM CDT Oxygen Saturation 98% 03/29/2023 4:55 PM CDT Inhaled Oxygen Concentration - - Weight 71.6 kg (157 lb 13.6 oz) 03/29/2023 4:56 PM CDT Height - - Body Mass Index - - Plan of Treatment Not on file Insurance [place] MEDICA[place] Care Teams Facility Worker Relationship Specialty Start Date End Date Elsewhere, Pcp PCP - General Family Medicine 01/21/21
--- OUTSIDE RECORDS SUMMARY | 2024-07-25 13:18 | XMS_ITS ---
Author Organization [facility] Address [address] [place] [id number] Care Team Providers Care Roll Dough Divider Name Role Phone Unavailable Unavailable Unavailable Surgery Details Not on file Complications Check Surgery Details section. Procedure Estimated Blood Loss Check Surgery Details section. Procedure Findings Check Surgery Details section. Procedure Specimens Taken Check Surgery Details section.
--- OUTSIDE RECORDS SUMMARY | 2024-07-25 13:18 | XMS_ITS | Clinical Summary ---
Author Organization [facility] Address [address] [place] [id number] Care Team Providers Care Senior Software Developer Name Role Phone Elsewhere, Pcp Primary Care Provider Unavailabl e Source Comments Patient records contain information from all sites at [facility]. For routine questions regarding patient records, call [phone] during business hours, M-F 8:00 AM - 5:00 PM Central Time. Record requests for emergency care only can be directed to [phone] at any time.[facility] Allergies Active Allergy Reactions Criticality Noted [...] vaccine (6 months and older) (PF) 03/23/2010 Family History Medical History Relation Name Comments Diabetes Daughter 1 Adysun Diabetes Daughter 2 Angela Arthritis Father Solares Depression Father Solares Heart disease Maternal Grandfather Heart disease Maternal Grandmother Diabetes Mother Nana Heart disease Mother Anna Relation Name Status Comments Daughter 1 Adysun Daughter 2 Angela Father Solares Maternal Grandfather Maternal Grandmother Mother Anna Social History Tobacco Use Types Packs/Day Years [...] often do you attend chur ch or hoahaoism services? More than 4 times per year 07/04/2021 Do you belong to any clubs o r organizations such as hoahaoism groups, unions, fraternal or athletic groups, or [...] Answer Date Recorded PHQ-2 Score 3 01/29/2023 [facility] - Occupational Stress [...] Sex Assigned at Female 07/04/2021 3:43 PM INSPECTOR CONVEYOR LINE Legal Sex Female 7:11 PM INSPECTOR CONVEYOR LINE Gender Identity Female 07/04/2021 3:43 PM INSPECTOR CONVEYOR LINE Sexual Orientation Straight 05/08/2021 2: 48 PM INSPECTOR CONVEYOR LINE Occupation Industry Job Start Date Job End [...] Mass Index - - Plan of Treatment Health Maintenance Due Date Last Done Comments Hepatitis B Vaccines (1 of 3 - 19+ 3-dose series) 2008 HPV Vaccines (2 - 3-dose series) 07/30/2012 07/02/2012 Cervical/Vaginal Cancer Screening 05/02/2019 05/02/2016 COVID-19 Vaccine ( - 2023- season) 2024 Influenza Vaccine (#1) 2024 0, 03/23/2010 Depression Screening (Annual PHQ-2) 06/30/2024 DTaP,Tdap,and Td Vaccines (3 - Td or Tdap) 08/07/2031 08/07/2021, 02/26/2016 HIV Screening Addressed 01/29/2021 (Performed elsewhere) Overridden with the intention of not completing the topic Hepatitis C Screening Addressed 01/29/2021 (Performed elsewhere) Overridden with the intention of not completing the topic IPV Vaccines Aged Out No longer eligi ble based on patient's age to complete this topic Pneumococcal vaccine (0-49 years) Aged Out No longer eligible b ased on patient's age to complete this topic Insurance [place] MEDICA[place] Care Teams Senior Software Developer Relationship Specialty Start Date End Date Elsewhere, Pcp PCP - General Family Medicine 01/21/21
--- OUTSIDE RECORDS SUMMARY | 2024-07-25 13:18 | XMS_ITS | Clinical Summary ---
Author Organization [employer] [facility] Address [place], [place] [address] Care Team Providers Care Grip Name Role Phone Sara Us MD Primary Care Prov ider Allergies Active Allergy Reactions Criticality Noted Date Comments Bee Venom Protein (Honey Bee) Anxiety,Dizziness,Headache, Hives,Itching,Rash,Other - Describe In Comment Field 01/08/2021 Medications ibuprofen (ADVIL; MOTRIN) 600 mg tabletIndications:V aginal delivery Take 1 Tablet (600 mg) by mouth every 6 hours. Maximum of 3200 mg in 24 hours. 30 Tablet 2 Active clonazePAM (KLONOPIN) 1 mg tablet Take 0.5 mg by mouth once daily if needed. 3 Active QUEtiapine (SEROQUEL) 50 mg tablet Take 50 mg by mouth two times daily. 3 Active naproxen (NAPROSYN) 500 mg tabletIndications:C hronic migraine with aura without status migrainosus, not intractable Take 1 Tablet (500 mg) by mouth two times daily. 14 Tablet 4 Active ondansetron (ZOFRAN ODT) 4 mg disintegrating tabletIndications:C hronic migraine with aura without status migrainosus, not intractable Place 1 Tablet (4 mg) on the tongue every 8 hours if needed for Nausea/Vomit ing. 30 Tablet 4 Active naproxen (NAPROSYN) 500 mg tabletIndications:O ral abscess,Chronic nonintractable headache, unspecified headache type Take 1 Tablet (500 mg) by mouth two times daily. 28 Tablet Active Active Problems Problem Noted Date Diagnosed Date Low grade squamous intraepit helial lesion (LGSIL) on cervical Pap smear. Normal pap 04/201608/16/2015 Overview (05/14/2016): 05/02/2016 NIL/ HPV negative - repeat cotesting in 1 year (due 04/2017) 08/16/2015 LSIL cannot exclude HSIL; patient did not complete follow up colposcopy Bipolar disorder, unspecified 04/27/2008 Tobacco use disorder 04/13/2008 Major depressive disorder, recurrent episode, mo derate 04/13/2008 Resolved Problems Problem Noted Date Diagnosed Date Resolved Date Gestational hypertension 09/19/2021 Vaginal delivery 09/18/2021 10/28/2023 Encounter for supervision of normal , unspecified, unspecified trimester 02/08/2021 10/28/2023 Overview (07/15/2021): G 5 P 3, x3 KEYLA: September 28, 2021 by [facility] FOB: Rubella immune, Rh O positive anatomy scan: OGTT: Hb at 28 weeks: Tdap on: Rhogam?: No GBS: COVID: vaccine counseling 04/13, Issues: 1. Normal . 2. Desires permanent contraception, consent signed February 08, 2021. IUD (intrauterine device) in place. Mirena placed 04/201609/02/2016 01/15/2021 , obstetrical care 03/11/2016 09/02/2016 History of prior with IUGR 6 10/28/2023 Supervision of other normal 11/13/2011 07/02/2012 Moderate dysplasia of cervix 10/04/2009 09/02/2016 Mood swings 04/13/2008 09/26/2009 Encounters Date Type Department Care Team Description 05/31/2024 Travel from Last 3 Months Immunizations Name Administration Dates Next Due Human Papilloma Virus Vaccine 07/02/2012 Influenza Virus, Unspecified 03/23/2010 Influenza, IIV3 (Age >=3 years) 03/23/2010 Tdap 08/07/2021,02/26/2016 Tuberculin (PPD) 10/27/2015,10/27/2015, 4,07/02/2013 Family History Medical History Relation Name Comments Diabetes Daughter 1 type 1 Diabetes Daughter 2 type 1 Arthritis Father Depression Father Obesity Half-Sister Heart Disease Maternal Grandfather Diabetes Mother Obesity Mother Heart Disease Paternal Grandmother Allergies Son Asthma Son Relation Name Status Comments Brother Alive Daughter 1 Alive Daughter 2 Alive Father Alive Half-Sister Alive Maternal Grandfather Mother Alive Paternal Grandmother Son Alive Social History Tobacco Use Types Packs/Day Years Used Date Smoking Tobacco: Former Cigarettes Smokeless Tobacco: Never Tobacco Cessation:Counseling Given: Not Answered Comments:Quit 08/2023 Alcohol Use Standard Drinks/Week Comments No 0 (1 standard drink = 0.6 oz pur e alcohol) social PHQ-2 Answer Date Recorded PHQ-2 TOTAL SCORE 4 11/19/2023 Social Connections Answer Date Recorded Do you often feel lonely or isolated from those around you? 0 10/28/2023 Financial Resource Strain Answer Date R ecorded Difficulty of Paying Living Expenses 3 10/28/2023 Difficulty of Paying Living Expenses Not on file 10/28/2023 Food Insecurity Answer Date Recorded Do you worry your food will run out before you are able to buy more? 1 10/28/2023 Transportation Needs Answer Date Record ed Does lack of transportation keep you from medica l appointments? 1 10/28/2023 Does lack of transportation keep you from work, meetings or getting things that you need? 1 10/28/2023 Housing Stability Answer Date Recorded What is your housing situation today? 1 10/28/2023 Interpersonal Safety Answer Date Record ed Are you being hit, kicked, p ushed or yelled at (see row info)? No 08/30/2023 Interpersonal Safety Abuse 12 - 18 Not on file 08/30/2023 Interpersonal Safety Ambulatory Vulnerability No t on file 08/30/2023 Utilities Answer Date Recorded Do you have trouble paying f or utilities (for example, heat, electricity, water, phone)? 1 10/28/2023 Comments No Sex and Gender Information Value Date Recorded Sex Assigned at Female 01/05/2021 11:19 AM CDT Legal Sex Female 5:23 AM UNDERWRITING CLERKS SUPERVISOR Gender Identity Female 01/05/2021 11:19 AM CDT Sexual Orientation Straight 01/05/2021 11 :19 AM CDT Occupation Industry Job Start Date Job End Date Student Not on file Not on file Not on file Obstetrics History Para Term AB IAB SAB Ectopic Multiple Livin g Live Births 5 4 3 1 1 0 1 0 0 4 4 Date Outcome GA Total Labor Labor/2nd/3rd Weight Sex Type Anes PTL Sharonda A1 A5 Name Clin SAB 2009 Term 39w 6d 9h 00m 3.06 kg (6 lb 12 oz) F Vag-S pont Epidur al,Epi dural Y Livin g 9 9 [place] Delivery Location:[facility] Comments:PTL 36+:monit ored 2011 35w 5d 24h 00m 1.33 kg (2 lb 15 oz) F Vag-S pont Epidur al N Livin g Delivery Location:[facility] Comments:induction-IUG R;double nuchal cord 2015 Term 38w 0d 1h 30m 3.63 kg (8 lb) M Vag-S pont Epidur al N Livin g Complications:None Delivery Location:[facility] 2021 Term 38w 4d 7h 17m 7h 12m/0h 04m/0h 01m 2.65 kg (5 lb 13.5 oz) F Vag-S pont Epidur al Livin g 5 7 LIU IRIZARRY,BG BRADLEY Boothe , Edgar Poole MD Delivery Location:Hospital ( [facility]) Comments 3 NSVDs, proven pelvis to 8# Last Filed Vital Signs Vital Sign Reading Time Taken Comments Blood Pressure 116/80 11/19/2023 3:04 PM CDT Pulse 83 11/19/2023 3:04 PM CDT Temperature 36.9 C (98.5 F) 08/30/2023 8:39 AM UNDERWRITING CLERKS SUPERVISOR Respiratory Rate 18 08/30/2023 8:39 AM UNDERWRITING CLERKS SUPERVISOR Oxygen Saturation 97% 11/19/2023 3:04 PM CDT Inhaled Oxygen Concentration - - Weight 78.5 kg (173 lb) 10/28/2023 1:49 PM CDT Height 166.4 cm (5' 5.51) 10/28/2023 1:49 PM CD T Body Mass Index 28.34 10/28/2023 1:49 PM CDT Plan of Treatment Health Maintenance Due Date Last Done Comments Pap test for age 21-65 05/02/2019 6, 05/02/2016, 05/02/2016, Additional history exists COVID-19 vaccine series (2023- season) 2024 Influenza for age 9-49 02/29/2024 03/23/2010, 2009 BMI (ht and wt on same day) for age 18+ 10/27/2024 10/28/2023, 01/15/2021, 01/08/2021, Additional history exists Depression screening for age 12+ 11/18/2024 11/19/2023, 11/19/2023, 01/15/2021, Additional history exists Tetanus booster 08/07/2031 08/07/2021, 02/26/2016 HIV for age 15-65 Completed 01/29/2021, , 08/16/2015, Additional history exists Hepatitis C screening for age 18-79 Completed 01/29/2021 Tdap Completed 08/07/2021, 02/26/2016 Pneumococcal series for age 6-49 Aged Out No longer eligible based on patient's age to complete this topic Procedures Procedure Name Priority Date/Time Associated Diagnosis Comments ANTI HIV 1/2 Routine 01/29/2021 10:44 AM CDT care, subsequent in first trimester ANTI HCV Routine 01/29/2021 10:44 AM CDT care, subsequent in first trimester VETERANS SERVICE OFFICER THIN PREP PAP SCREEN IMAGED Routine 05/02/2016 4:36 PM CDT Low grade squamous intraepithelial lesion (LGSIL) on cervical Pap smear from Last 3 Months or Most Recently Relevant to Health Maintenance Results * ANTI HCV (01/29/2021 10:44 AM CDT) HEPATITIS C ANTIBODY Non-React calli Non-React calli 01/29/2021 5:51 PM CDT [facility] Comment:Antibodies to HCV no t detected; does not exclude the possibility of exposure to HCV. Blood BLOOD SPECIMEN / Unknown Venipuncture / Unknown 01/29/2021 10:44 AM CDT 01/29/2021 10:46 AM CDT Juanita Bean MD SEND OUTS Final Re sult Performing Organization Address City/[facility]/ZIP Co de Phone Number [facility] [address] [place] [address], [place] * ANTI HIV 1/2 (01/29/2021 10:44 AM CDT) HIV-1/HIV-2 ANTIBODY Non-Reacti ve Non-Reacti ve 01/29/2021 5:53 PM CDT [facility] Comment:HIV-1 p24 and HIV-1/ HIV-2 Ab not detected. Blood BLOOD SPECIMEN / Unknown Venipuncture / Unknown 01/29/2021 10:44 AM CDT 01/29/2021 10:46 AM CDT Juanita Bean MD SEND OUTS Final Re sult Performing Organization Address [facility]/ZIP Co de Phone Number [facility] [address] [place] [address], [place] * VETERANS SERVICE OFFICER THIN PREP PAP SCREEN IMAGED [[id number]] (05/02/2016 4:36 PM CDT) Case Report Gynecologic Cytology Report Case: [id number] Authorizing Provider: Britney Reeves MD Collected: 05/02/2016 1636 Ordering Location: [facility] Received: 05/02/2016 [facility] First Screen: Boyd Sharp Pathologist: Gerald Boo MD Specimen: VETER[employer] SERVICE OFFICER ThinPrep Vial Diagnostic, Cervical 08/27/2016 5:20 PM UNDERWRITING CLERKS SUPERVISOR [facility] Amendment [id number] displays the correct provider order. This amendment is issued to reflect the clinic incorrectly orderd this ThinPrep Pap as Screening instead of Diagnostic. The diagnosis does not change. 08/27/2016 5:20 PM UNDERWRITING CLERKS SUPERVISOR [facility] [employer] [facility] INTERPRETATION/ RESULT NEGATIVE FOR INTRAEPITHELIAL LESION OR MALIGNANCY (NIL) (none) 08/27/2016 5:20 PM UNDERWRITING CLERKS SUPERVISOR [facility] Amendment electronically signed by Gerald Boo MD on 08/27/2016 at 5:20 PM R NON-NEOPLASTIC FINDING(S) Reactive cellular changes associated with inflammation/repa ir 08/27/2016 5:20 PM UNDERWRITING CLERKS SUPERVISOR [facility] [employer] [facility] SPECIMEN ADEQUACY Satisfactory for evaluation Endocervical component present 08/27/2016 5:20 PM UNDERWRITING CLERKS SUPERVISOR [facility] HPV REQUEST HPV and PAP 08/27/2016 5:20 PM UNDERWRITING CLERKS SUPERVISOR [facility] Date of LMP 08/27/2016 5:20 PM UNDERWRITING CLERKS SUPERVISOR [facility] Last Pap Date 08/16/15 08/27/2016 5:20 PM UNDERWRITING CLERKS SUPERVISOR [facility] Last Pap Result LSIL 7 5:20 PM UNDERWRITING CLERKS SUPERVISOR [facility] Abnormal Pap or [place] Bx in last 5 years Yes 08/27/2016 5:20 PM UNDERWRITING CLERKS SUPERVISOR [facility] Menstrual Status 08/27/2016 5:20 PM UNDERWRITING CLERKS SUPERVISOR [facility] [place] Bx Done Today No 08/27/2016 5:20 PM UNDERWRITING CLERKS SUPERVISOR [facility] Additional Information None given 08/27/2016 5:20 PM UNDERWRITING CLERKS SUPERVISOR [facility] Automated Review Successful 08/27/2016 5:20 PM UNDERWRITING CLERKS SUPERVISOR [facility] Comment:Specimen processed s uccessfully by automated automotive engineering technician device, ThinPrep Imaging System, [employer] ANCILLARY TESTING VETERANS SERVICE OFFICER HPV Ordered, Please see separate report 08/27/2016 5:20 PM UNDERWRITING CLERKS SUPERVISOR [facility] Note The pap test is a screening technique, not a diagnostic procedure. It is used primarily to screen for squamous cancers and precursor lesions. Published studies have shown that it is subject to both false negative and false positive results. The pap test should not be used as the sole means to diagnose or exclude pre-malignant and malignant lesions. 08/27/2016 5:20 PM UNDERWRITING CLERKS SUPERVISOR [facility] [employer] [facility] Other (Cervical) 05/02/2016 4:36 PM CDT 05/02/2016 4:36 PM CDT Britney Reeves MD PATHOLOGY/CYTOLOGY Edited Result - Final [facility] [address] [place] [address], [place] from Last 3 Months or Most Recently Relevant to Health Maintenance Insurance [facility] [address] [place] [address] [facility] [address] [place] [address] [facility] Advance Directives * Full Code (Latest Code Status on File) Date Activated Date Inactivated Comments 09/18/2021 1:21 PM 09/20/2021 12:32 PM Question Answer Comments Code Status Discussion: Discussed Care Teams Grip Relationship Specialty Start Date End Date Sara [place] [address] [place] [address] PCP - General Family Practice 11/19/23
[2024-07-25 13:19] VITALS: BP 127/82; PULSE 88; RESP 16; TEMP 36.7; O2SAT 97; BMI 28.3
--- NOTE | 2024-07-25 13:34 | ED.GENADULT ---
HPI - General Adult General Chief complaint: Shortness of Breath/Dyspnea Stated complaint: cough, feeling bad, congested, body aches, sob Time Seen by Provider: 07/25/24 13:18 History of Present Illness HPI narrative: feeling of malaise for two weeks. body aches, congestion, headaches, runny nose. denies fever. states feeling sob, lungs hurt . 33-year-old woman presenting to the emergency department With concern of feeling unwell over the last couple of weeks. She has had body aches over this period of time as well. Now with a lot of pressure in her face, sinuses. Not describing ear pain. Continues to have cough. Burning sensation in her chest could not even tolerate her partners arm across her anterior chest last night. No fever. Has headache. Later is requesting something more than all the ibuprofen that she has been eating that might be helpful for these body aches. No rashes noted. Related Data Home Medications ?Medication ?Instructions ?Recorded ?Confirmed clonazepam 1 mg tablet 1 mg PO BID PRN 02/23/24 07/25/24 dextroamphetamine-amphetamine ER 1 cap PO QAM 02/23/24 07/25/24 15 mg 24hr capsule,extend release lamotrigine 25 mg tablet 25 mg PO 04/14/24 Seroquel 07/25/24 Previous Rx's ?Medication ?Instructions ?Recorded amoxicillin 875 mg tablet 875 mg PO BID 12 days #24 tabs 07/25/24 prednisone 20 mg tablet 40 mg (2 x 20 mg) PO DAILY 5 days 07/25/24 #10 tabs tramadol 50 mg tablet 50 - 100 mg (1 - 2 x 50 mg) PO BID 07/25/24 PRN pain #8 tabs Allergies Allergy/AdvReac Type Severity Reaction Status Date / Time bee venom protein (honey bee) AdvReac Mild edema Verified 07/25/24 13:22 Review of Systems Status of ROS: Reports: 6 or more systems reviewed and unremarkable except as noted in History and below [facility] Medical History Anxiety ?F41.9 - Anxiety disorder, unspecified (ICD-10) ADHD ?F90.9 - Attention-deficit hyperactivity disorder, unspecified type (ICD-10) Social History Smoking Status: Former smoker Do you use any of these nicotine containing products: Vaping Products Second hand tobacco smoke exposure: No How often do you have a drink containing alcohol: never AUDIT-C Alcohol total score: 0 Non-prescribed substance use: denies use Non-prescribed substance use details: clean since 2009 service: No Exam Narrative: Exam Narrative: Pleasant. Sounds a little congested the nasopharynx without swelling or erythema. She is tender to palpation over the forehead and maxillary sinuses. TMs are clear. Lungs are clear. Heart in regular rate and rhythm. A little sore to palpation of the upper sternum. Lungs are clear. Extremities are well perfused without edema. Oropharynx is unremarkable. Const: Vital Signs, click to edit/add: Vital Signs - 24 hr 07/25/24 13:19 Temperature 98.1 F Pulse Rate [Left P ulse Oximeter] 88 Respiratory Rate 16 Blood Pressure [Ri ght Upper Arm] 127/82 Pulse Oximetry 97 Oxygen Delivery Me thod Room Air Documenting provider has reviewed patient's vital signs: yes Course Vital Signs Vital signs: Initial Vital Signs Temperature 98.1 F 07/25/24 13:19 Temperature Source Temporal Artery Scan 07/25/24 13:19 Pulse Rate 88 07/25/24 13:19 Respiratory Rate 16 07/25/24 13:19 Blood Pressure 127/82 07/25/24 13:19 Blood Pressure Mean 97 07/25/24 13:19 Blood Pressure Position Sitting 07/25/24 13:19 Pulse Oximetry 97 07/25/24 13:19 Oxygen Delivery Method Room Air 07/25/24 13:19 Vital Signs Temperature 98.1 F 07/25/24 13:19 Pulse Rate 88 07/25/24 13:19 Respiratory Rate 16 07/25/24 13:19 Blood Pressure 127/82 07/25/24 13:19 Pulse Oximetry 97 07/25/24 13:19 Oxygen Delivery Method Room Air 07/25/24 13:19 Temperature 98.1 F 07/25/24 13:19 Pulse Rate 88 07/25/24 13:19 Respiratory Rate 16 07/25/24 13:19 Blood Pressure 127/82 07/25/24 13:19 Pulse Oximetry 97 07/25/24 13:19 Oxygen Delivery Method Room Air 07/25/24 13:19 Medical Decision Making MDM Narrative Medical decision making narrative: Swab is already been done for influenza, COVID, RSV. Regardless of result would not be treating this any longer. Has had sinus pain as she describes it for at least a week. I think some prednisone or similar might be beneficial along with decongestant. If not improving in a few days then would consider antibiotics. Asking for some more pain relief which I think would be partially accomplished with prednisone. Need to discuss further expectations what expectations for pain relief are. I do not think has bacterial pneumonia. She is not actively coughing here does not appear to be any shortness of breath. Myalgias body aches chest burning appear to be primary complaint along with intense sinus pressure. Swabs are negative. Would offer symptomatic treatment. See patient discharge plan for further discussion I use the term bronchitis for lack of better terminology. Prednisone can help this. 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 I personally like the 12 hour formulation for decongestion. Sleep under the mist of cool mist humidifier. Mental vapors might be helpful. Consider Neti pot and nasal saline rinses. Prescribing prednisone and some tramadol as discussed. Otherwise can take up to 100 mg of ibuprofen or up to 1000 mg of acetaminophen per dose. Alternative to the ibuprofen is up to 500 mg of naproxen 2 times daily If not improving in 2-3 days, prescription of amoxicillin would be available to fill Medical Records Medical records reviewed: Yes I reviewed the patient's medical records Lab Data Lab results reviewed: Yes I reviewed the patient's lab results Labs: Lab Results 07/25/24 Range/Units 13:25 SARS-CoV-2 (PCR) Negative SARS-CoV-2 (Negative) Influenza Type A (PCR) Negative PCR FLU A (Negative) Influenza Type B (PCR) Negative PCR FLU B (Negative) RSV (PCR) Negative PCR RSV (Negative) Discharge Plan Discharge Clinical Impression: Myalgia, Sinusitis, Bronchitis Patient Disposition: Home, Self-Care Condition: Stable Additional Instructions: I use the term bronchitis for lack of better terminology. Prednisone can help this. Also for these symptoms of ear face/head I would consider taking pseudoephedrine which is available [id number] with your tier truck driver's license. I personally like the 12 hour formulation for decongestion. Sleep under the mist of cool mist humidifier. Mental vapors might be helpful. Consider Neti pot and nasal saline rinses. Prescribing prednisone and some tramadol as discussed. Otherwise can take up to 100 mg of ibuprofen or up to 1000 mg of acetaminophen per dose. Alternative to the ibuprofen is up to 500 mg of naproxen 2 times daily If not improving in 2-3 days, prescription of amoxicillin would be available to fill Prescriptions: New prednisone 20 mg tablet 40 mg PO DAILY 5 Days Qty: 10 0RF tramadol 50 mg tablet 50 - 100 mg PO BID PRN (Reason: pain) Qty: 8 0RF amoxicillin 875 mg tablet 875 mg PO BID 12 Days Qty: 24 0RF No Action lamotrigine 25 mg tablet 25 mg PO Seroquel clonazepam 1 mg tablet 1 mg PO BID PRN dextroamphetamine-amphetamine 15 mg capsule,extended release 24hr 1 cap PO QAM Follow Up/Referrals: Sara Centeno MD [Primary Care Provider] - Stand Alone Forms: [employer] Info Instructions
--- OUTSIDE RECORDS SUMMARY | 2024-07-25 14:04 | XMS_ITS | Clinical Summary ---
Author Organization [facility] Address [address] [place] [address] Care Team Providers Care Belt Back Operator Name Role Phone Elsewhere, Pcp Primary Care Provider Unavailabl e Source Comments Patient records contain information from all sites at [facility]. For routine questions regarding patient records, call [phone] during business hours, M-F 8:00 AM - 5:00 PM Central Time. Record requests for emergency care only can be directed to [phone] at any time.[facility] Allergies Active Allergy Reactions Criticality Noted Date [...] Grandfather Heart disease Maternal Grandmother Diabetes Mother Anna Heart disease Mother Anna Relation Name Status [...] often do you attend chur ch or jew services? More than 4 times per year 07/04/2021 Do you belong to any clubs o r organizations such as rastafarian groups, unions, fraternal or athletic groups, or [...] Answer Date Recorded PHQ-2 Score 3 01/29/2023 [facility] - Occupational Stress [...] Sex Assigned at Female 07/04/2021 3:43 PM VEHICLE DAMAGE APPRAISER Legal Sex Female 7:11 PM VEHICLE DAMAGE APPRAISER Gender Identity Female 07/04/2021 3:43 PM VEHICLE DAMAGE APPRAISER Sexual Orientation Straight 05/08/2021 2: 48 PM VEHICLE DAMAGE APPRAISER Occupation Industry Job Start Date Job End [...] patient's age to complete this topic Insurance [place] Care Teams Belt Back Operator Relationship Specialty Start Date End Date Elsewhere, Pcp PCP - General Family Medicine 01/21/21
--- OUTSIDE RECORDS SUMMARY | 2024-07-25 14:04 | XMS_ITS | Referral Summary ---
Author Organization [facility] Address [address] [place] [id number] Care Team Providers Care Nurse General Duty Name Role Phone Elsewhere, Pcp Primary Care Provider Unavailabl e Source Comments Patient records contain information from all sites at [facility]. For routine questions regarding patient records, call [phone] during business hours, M-F 8:00 AM - 5:00 PM Central Time. Record requests for emergency care only can be directed to [phone] at any time.[facility] Allergies Active Allergy Reactions Criticality Noted Date [...] often do you attend chur ch or congregational services? More than 4 times per year 07/04/2021 Do you belong to any clubs o r organizations such as faith groups, unions, fraternal or athletic groups, or [...] Answer Date Recorded PHQ-2 Score 3 01/29/2023 [facility] - [...] Sex Assigned at Female 07/04/2021 3:43 PM SEASONER Legal Sex Female 7:11 PM SEASONER Gender Identity Female 07/04/2021 3:43 PM SEASONER Sexual Orientation Straight 05/08/2021 2: 48 PM SEASONER Occupation Industry Job Start Date Job End [...] Plan of Treatment Not on file Insurance [place] Care Teams Nurse General Duty Relationship Specialty Start Date End Date Elsewhere, Pcp PCP - General Family Medicine 01/21/21
--- OUTSIDE RECORDS SUMMARY | 2024-07-25 14:04 | XMS_ITS ---
Author Organization [facility] Address [address] [place] [address] Care Team Providers Care Knitting Machine Operator Name Role Phone Unavailable Unavailable Unavailable Surgery Details Not on file Complications Check Surgery Details section. Procedure Estimated Blood Loss Check Surgery Details section. Procedure Findings Check Surgery Details section. Procedure Specimens Taken Check Surgery Details section.
--- OUTSIDE RECORDS SUMMARY | 2024-07-25 14:04 | XMS_ITS | Clinical Summary ---
Author Organization [facility] Address [place], [place] [address] Care Team Providers Care Casting Inspector Name Role Phone Sara Us MD Primary [...] AM CDT Legal Sex Female 5:23 AM OPERATOR COMMAND SUPPORT SYSTEMS Gender Identity Female 01/05/2021 11:19 AM CDT [...] Livin g 9 9 [place] Delivery Location:[facility] Comments:PTL 36+:monit ored 2011 35w 5d 24h 00m 1.33 kg (2 lb 15 oz) F Vag-S pont Epidur al N Livin g Delivery Location:[facility] Comments:induction-IUG R;double nuchal cord 2015 Term 38w 0d 1h 30m 3.63 kg (8 lb) M Vag-S pont Epidur al N Livin g Complications:None Delivery Location:[place] 2021 Term 38w 4d 7h 17m 7h 12m/0h 04m/0h 01m 2.65 kg (5 lb 13.5 oz) F Vag-S pont Epidur al Livin g 5 7 LIU IRIZARRY,BG BRADLEY Boothe , Edgar Poole MD Delivery Location:Hospital ( [facility]) Comments 3 NSVDs, proven pelvis to 8# Last Filed Vital Signs Vital Sign Reading Time Taken Comments Blood Pressure 116/80 11/19/2023 3:04 PM CDT Pulse 83 11/19/2023 3:04 PM CDT Temperature 36.9 C (98.5 F) 08/30/2023 8:39 AM OPERATOR COMMAND SUPPORT SYSTEMS Respiratory Rate 18 08/30/2023 8:39 AM OPERATOR COMMAND SUPPORT SYSTEMS Oxygen Saturation 97% 11/19/2023 3:04 PM CDT [...] AM CDT care, subsequent in first trimester COAL CONVEYOR OPERATOR THIN PREP PAP SCREEN IMAGED Routine 05/02/2016 4:36 PM CDT Low grade squamous intraepithelial lesion (LGSIL) on cervical Pap smear from Last 3 Months or Most Recently Relevant to Health Maintenance Results * ANTI HCV (01/29/2021 10:44 AM CDT) HEPATITIS C ANTIBODY Non-React calli Non-React calli 01/29/2021 5:51 PM CDT [facility] Comment:Antibodies to HCV no t detected; does not exclude the possibility of exposure to HCV. Blood BLOOD SPECIMEN / Unknown Venipuncture / Unknown 01/29/2021 10:44 AM CDT 01/29/2021 10:46 AM CDT Juanita Bean MD SEND OUTS Final Re sult Performing Organization Address City/[facility]/ZIP Co de Phone Number [facility] [address] [place] [address], [place] * ANTI HIV 1/2 (01/29/2021 10:44 AM CDT) HIV-1/HIV-2 ANTIBODY Non-Reacti ve Non-Reacti ve 01/29/2021 5:53 PM CDT [facility] Comment:HIV-1 p24 and HIV-1/ HIV-2 Ab not detected. Blood BLOOD SPECIMEN / Unknown Venipuncture / Unknown 01/29/2021 10:44 AM CDT 01/29/2021 10:46 AM CDT Juanita Bean MD SEND OUTS Final Re sult Performing Organization Address [facility]/ZIP Co de Phone Number [facility] [address] [place] [address], [place] * COAL CONVEYOR OPERATOR THIN PREP PAP SCREEN IMAGED [[id number]] (05/02/2016 4:36 PM CDT) Case Report Gynecologic Cytology Report Case: [id number] Authorizing Provider: Britney Reeves MD Collected: 05/02/2016 1636 Ordering Location: [facility] Received: 05/02/2016 [facility] First Screen: Boyd Sharp Pathologist: Gerald Boo MD Specimen: COAL CONVEYOR OPERATOR ThinPrep Vial Diagnostic, Cervical 08/27/2016 5:20 PM OPERATOR COMMAND SUPPORT SYSTEMS [facility] Amendment [id number] displays the correct provider order. This amendment is issued to reflect the clinic incorrectly orderd this ThinPrep Pap as Screening instead of Diagnostic. The diagnosis does not change. 08/27/2016 5:20 PM OPERATOR COMMAND SUPPORT SYSTEMS [facility] INTERPRETATION/ RESULT NEGATIVE FOR INTRAEPITHELIAL LESION OR MALIGNANCY (NIL) (none) 08/27/2016 5:20 PM OPERATOR COMMAND SUPPORT SYSTEMS [facility] Amendment electronically signed by Gerald Boo MD on 08/27/2016 at 5:20 PM R NON-NEOPLASTIC FINDING(S) Reactive cellular changes associated with inflammation/repa ir 08/27/2016 5:20 PM OPERATOR COMMAND SUPPORT SYSTEMS [facility] [employer] [facility] SPECIMEN ADEQUACY Satisfactory for evaluation Endocervical component present 08/27/2016 5:20 PM OPERATOR COMMAND SUPPORT SYSTEMS [facility] HPV REQUEST HPV and PAP 08/27/2016 5:20 PM OPERATOR COMMAND SUPPORT [employer]S [facility] Date of LMP 08/27/2016 5:20 PM OPERATOR COMMAND SUPPORT [employer]S [facility] Last Pap Date 08/16/15 08/27/2016 5:20 PM OPERATOR COMMAND SUPPORT [employer]S [facility] Last Pap Result LSIL 7 5:20 PM OPERATOR COMMAND SUPPORT [employer]S [facility] Abnormal Pap or [place] Bx in last 5 years Yes 08/27/2016 5:20 PM OPERATOR [employer] SU[employer]S [facility] Menstrual Status 08/27/2016 5:20 PM OPERATOR [employer] SUPPORT [employer]S [facility] [place] Bx Done Today No 08/27/2016 5:20 PM OPERATOR COMMAND SUPPORT [employer]S [facility] Additional Information None given 08/27/2016 5:20 PM OPERATOR COMMAND SUPPORT SYSTEMS [facility] Automated Review Successful 08/27/2016 5:20 PM OPERATOR COMMAND SUPPORT SYSTEMS [facility] Comment:Specimen processed s uccessfully by automated belt sander stone device, ThinPrep Imaging System, [employer] ANCILLARY TESTING COAL CONVEYOR OPERATOR HPV Ordered, Please see separate report 08/27/2016 5:20 PM OPERATOR COMMAND SUPPORT SYSTEMS [facility] Note The pap test is a screening technique, not a diagnostic procedure. It is used primarily to screen for squamous cancers and precursor lesions. Published studies have shown that it is subject to both false negative and false positive results. The pap test should not be used as the sole means to diagnose or exclude pre-malignant and malignant lesions. 08/27/2016 5:20 PM OPERATOR COMMAND SUPPORT SYSTEMS [facility] [employer] [facility] Other (Cervical) 05/02/2016 4:36 PM CDT 05/02/2016 4:36 PM CDT Britney Reeves MD PATHOLOGY/CYTOLOGY Edited Result - Final [facility] [address] [place] [address], [place] from Last 3 Months or Most Recently Relevant to Health Maintenance Insurance [facility] [address] [place] [address] [facility] [address] [place] [address] [facility] Advance Directives * Full Code (Latest Code Status on File) Date Activated Date Inactivated Comments 09/18/2021 1:21 PM 09/20/2021 12:32 PM Question Answer Comments Code Status Discussion: Discussed Care Teams Casting Inspector Relationship Specialty Start Date End Date Sara Us [place] [address] PCP - General Family Practice 11/19/23
[2024-07-25 14:08] LABS: PCR FLU A Negative PCR FLU A (Negative); PCR FLU B Negative PCR FLU B (Negative); PCR RSV Negative PCR RSV (Negative); SARS PCR* Negative SARS-CoV-2 (Negative)
== END 2024-07-25 14:46 | disposition home or self-care (01) ==
PROVIDERS: Emergency Provider Family Medicine
DX: M79.10 Myalgia, unspecified site (principal); J32.9 Chronic sinusitis, unspecified; J40 Bronchitis, not specified as acute or chronic
CPT/HCPCS: 87631; 99283; 99284

== ENCOUNTER 2024-09-16 23:29 | Emergency (ER) | payer BC, SELFPAY ==
[2024-09-16 23:34] VITALS: BP 110/84; PULSE 85; RESP 16; TEMP 36.6; O2SAT 99; BMI 26.6
[2024-09-16 23:58] LABS: Appearance Urine Cloudy (Clear); Bilirubin Urine Negative (Negative); Blood Urine 1+ (Negative); Color Urine Yellow (Yellow); Glucose Urine Negative (Negative); Ketones Urine Negative (Negative); Leukocyte Esterase Urine Trace (Negative); Nitrite Urine Positive (Negative); Protein Urine Negative (Negative); Urobilinogen Urine 0.2 (0.2-1.0)
[2024-09-17 00:14] LABS: Amorphous Sediment Urine Few; Bacteria Urine Many; Mucus Urine Few; Squamous Epithelial Cell Urine Few (None-Few)
--- NOTE | 2024-09-17 00:52 | ED_ITS ---
HPI - Abdominal Pain General Date Seen: 09/17/24 Chief Complaint: Abdominal Pain Stated Complaint: throat pain, abdomen pain Time Seen by Provider: 09/16/24 23:55 Source: patient Mode of arrival: ambulatory Limitations: no limitations History of Present Illness HPI narrative: Patient is a 33-year-old female who comes in with dysuria, frequency, bilateral low back pain that has been present for several days but worse over the past 24 hours. No documented fevers but she has had the chills. No vomiting or diarrhea. She has also had a cough and sore throat. She does get frequent urinary tract infections. No concerns regarding STD exposure. Related Data Home Medications ?Medication ?Instructions ?Recorded ?Confirmed clonazepam 1 mg tablet 1 mg PO BID PRN 02/23/24 09/16/24 dextroamphetamine-amphetamine ER 1 cap PO QAM 02/23/24 09/16/24 15 mg 24hr capsule,extend release lamotrigine 25 mg tablet 25 mg PO Q12H 04/14/24 09/16/24 Previous Rx's ?Medication ?Instructions ?Recorded ciprofloxacin HCl 250 mg tablet 250 mg PO BID #14 tabs 09/17/24 (Cipro) Allergies Allergy/AdvReac Type Severity Reaction Status Date / Time bee venom protein (honey bee) AdvReac Mild edema Verified 07/25/24 13:22 Review of Systems Narrative Review of systems is outlined above otherwise noted to be negative. PCP is Dr. Centeno in [place]. [facility] Medical History (Updated 09/17/24 @ 01:43 by Jose Armstrong MD) Polysubstance abuse ?F19.10 - Other psychoactive substance abuse, uncomplicated (ICD-10) Anxiety ?F41.9 - Anxiety disorder, unspecified (ICD-10) ADHD ?F90.9 - Attention-deficit hyperactivity disorder, unspecified type (ICD-10) Social History Smoking Status: Former smoker Do you use any of these nicotine containing products: Vaping Products Second hand tobacco smoke exposure: No How often do you have a drink containing alcohol: never AUDIT-C Alcohol total score: 0 Non-prescribed substance use: denies use Non-prescribed substance use details: clean since 2009 service: No Exam Narrative: Exam Narrative: Vitals noted. HEENT: Conjunctiva clear. Tympanic membranes are pearly white bilaterally. Posterior pharynx is erythematous without exudate. Neck is supple without adeno mitzi. Lungs: Clear to auscultation in all gunn. No wheezes, rales, rhonchi. Heart: Regular rate and rhythm without murmur. Abdomen: Soft with mild generalized tenderness. No guarding, rigidity, rebound. No CVA tenderness. Bowel sounds are normal. No palpable masses. Extremities: No cyanosis or edema. Good distal pulses. Skin: No abnormalities noted of the exposed skin. Neurologic: Awake, alert, fully oriented. Neurologic exam is nonfocal. Const: Vital Signs, click to edit/add: Vital Signs - 24 hr 09/16/24 23:34 Temperature 97.9 F Pulse Rate [Pulse Oximeter] 85 Respiratory Rate 16 Blood Pressure [Ri ght Upper Arm] 110/84 Pulse Oximetry 99 Oxygen Delivery Me thod Room Air Course Course ED Course: Patient seen examined. Urinalysis is ordered and shows 10-25 white blood cells, 2-5 red cells, nitrite positive, many bacteria. IV is established and she is given a L of normal saline, Toradol 30 mg IV, Rocephin 1 g IV. Reevaluation(s) Reevaluation #1: Patient continued to have back pain and was given Dilaudid 0.5 mg IV with good relief of her symptoms. Vital Signs Vital signs: Initial Vital Signs Temperature 97.9 F 09/16/24 23:34 Temperature Source Temporal Artery Scan 09/16/24 23:34 Pulse Rate 85 09/16/24 23:34 Respiratory Rate 16 09/16/24 23:34 Blood Pressure 110/84 09/16/24 23:34 Blood Pressure Mean 92 09/16/24 23:34 Blood Pressure Position Sitting 09/16/24 23:34 Pulse Oximetry 99 09/16/24 23:34 Oxygen Delivery Method Room Air 09/16/24 23:34 Vital Signs Temperature 97.9 F 09/16/24 23:34 Pulse Rate 85 09/16/24 23:34 Respiratory Rate 16 09/16/24 23:34 Blood Pressure 110/84 09/16/24 23:34 Pulse Oximetry 99 09/16/24 23:34 Oxygen Delivery Method Room Air 09/16/24 23:34 Temperature 97.9 F 09/16/24 23:34 Pulse Rate 85 09/16/24 23:34 Respiratory Rate 16 09/16/24 23:34 Blood Pressure 110/84 09/16/24 23:34 Pulse Oximetry 99 09/16/24 23:34 Oxygen Delivery Method Room Air 09/16/24 23:34 Medications Administered Medications: Generic Name Dose Route Start Last Admin Trade Name Freq PRN Reason Stop Dose Admin Hydromorphone HCl 0.5 mg 09/17/24 01:18 09/17/24 01:23 Hydromorphone 0.5 Mg/0.5 Ml Inj IVP 09/17/24 01:19 0.5 mg ONCE ONE Administration Discontinued Medications Generic Name Dose Route Start Last Admin Trade Name Freq PRN Reason Stop Dose Admin Ceftriaxone Sodium 1 gm/ 100 mls @ 200 mls/hr 09/17/24 00:22 09/17/24 01:24 Sodium Chloride IVPB 09/17/24 00:23 Infused ONCE ONE Infusion Sodium Chloride 1,000 mls @ 1,000 mls/hr 09/17/24 00:23 09/17/24 00:57 0.9 % Sodium Chloride 1000 Ml IV 09/17/24 01:22 1,000 mls/hr .Q1H MG Administration Ketorolac Tromethamine 30 mg 09/17/24 00:22 09/17/24 00:57 Ketorolac 30 Mg/Ml Inj IVP 09/17/24 00:23 30 mg ONCE ONE Administration MDM - Abdominal Pain Lab Data Labs: Lab Results 09/16/24 Range/Units 23:46 Urine Color Yellow (Yellow) Urine Appearance Cloudy A (Clear) Urine pH 6.0 (5.0-8.5) Ur Specific [place] 1.020 (1.000-1.030) Urine Protein Negative (Negative) Urine Glucose (UA) Negative (Negative) Urine Ketones Negative (Negative) Urine Blood 1+ A (Negative) Urine Nitrite Positive A (Negative) Urine Bilirubin Negative (Negative) Urine Urobilinogen 0.2 (0.2-1.0) Ur Leukocyte Esterase Trace A (Negative) Urine RBC 2-5 A (0-2) Urine WBC 10-25 A (0-5) Ur Squamous Epith Cells Few (None-Few) Amorphous Sediment Few A (None) Urine Bacteria Many A (None) Urine Mucus Few A (None) Discharge Plan Discharge Clinical Impression: UTI (urinary tract infection) Patient Disposition: Home, Self-Care Condition: Improved Additional Instructions: Rest, push fluids, Tylenol or Ibuprofen for pain, Cipro 250 mg twice a day for a week. Follow up with your PCP if no better in 2-3 days. Prescriptions: New ciprofloxacin HCl [Cipro] 250 mg tablet 250 mg PO BID Qty: 14 0RF No Action lamotrigine 25 mg tablet 25 mg PO Q12H clonazepam 1 mg tablet 1 mg PO BID PRN dextroamphetamine-amphetamine 15 mg capsule,extended release 24hr 1 cap PO QAM Follow Up/Referrals: Sara Centeno MD [Primary Care Provider] - Stand Alone Forms: [facility] Info Instructions
[2024-09-17] MEDS: cefTRIAXone 1 GM in 0.9 % SODIUM CHLORIDE Mini-bag 100 ML IVPB (00:57)
[2024-09-17] MEDS: 0.9 % SODIUM CHLORIDE 1000 ml 1,000 ML IV (00:57)
[2024-09-17] MEDS: KETOROLAC 30 MG/ML inj IVP (00:57)
--- OUTSIDE RECORDS SUMMARY | 2024-09-17 00:59 | XMS_ITS | Clinical Summary ---
Author Organization [facility] Address [address] [place] [address] Care Team Providers Care Wind Farm Electrical Systems Designer Name Role Phone Sara Us MD Primary Care Prov ider Allergies Active Allergy Reactions Criticality Noted Date Comments Bee Venom Protein (Honey Bee) Anxiety,Dizziness,Headache, Hives,Itching,Rash,Other - Describe In Comment Field 01/08/2021 Medications ibuprofen (ADVIL; MOTRIN) 600 mg tabletIndications:V aginal delivery (HC) Take 1 Tablet (600 mg) by mouth [...] by mouth two times daily. 28 Tablet 4 Active Active Problems Problem Noted Date Diagnosed [...] Encounters Date Type Department Care Team Description 08/10/2024 5:52 PM DIGITAL EDITOR - 08/10/2024 7:25 PM DIGITAL EDITOR Emergency [facility] [address] [place] [address] Carlitos Rodríguez PA Finger injury, right, initial encounter (Primary Dx) Discharge Disposition: Home Self Care 08/10/2024 Travel from Last 3 Months Immunizations Immunization Administration Dates Next Due Human Papilloma Virus [...] or yelled at (see row info)? No 08/10/2024 Interpersonal Safety Abuse 12 - 18 Not on file 08/10/2024 Interpersonal Safety Ambulatory Vulnerability No t on file 08/10/2024 Utilities Answer Date Recorded Do you have trouble paying f or utilities (for example, heat, electricity, water, phone)? 1 10/28/2023 Comments No Sex and Gender Information Value Date Recorded Sex Assigned at Female 01/05/2021 11:19 AM CDT Legal Sex Female 5:23 AM DIGITAL EDITOR Gender Identity Female 01/05/2021 11:19 AM CDT [...] Livin g 9 9 [place] Delivery Location:[facility] Comments:PTL 36+:monit ored 2011 35w 5d 24h 00m 1.33 kg (2 lb 15 oz) F Vag-S pont Epidur al N Livin g Delivery Location:[facility] Comments:induction-IUG R;double nuchal cord 2015 Term 38w 0d 1h 30m 3.63 kg (8 lb) M Vag-S pont Epidur al N Livin g Complications:None Delivery Location:[place] 2021 Term 38w 4d 7h 17m 7h 12m/0h 04m/0h 01m 2.65 kg (5 lb 13.5 oz) F Vag-S pont Epidur al Livin g 5 7 LIU IRIZARRY,BG BRADLEY Boothe , Edgar Poole MD Delivery Location:Hospital ( [facility] ) Comments 3 NSVDs, proven pelvis to 8# Last Filed Vital Signs Vital Sign Reading Time Taken Comments Blood Pressure 119/80 08/10/2024 7:25 PM DIGITAL EDITOR Pulse 87 08/10/2024 7:25 PM DIGITAL EDITOR Temperature 36.6 C (97.8 F) 08/10/2024 5:59 PM DIGITAL EDITOR Respiratory Rate 16 08/10/2024 5:59 PM DIGITAL EDITOR Oxygen Saturation 97% 08/10/2024 7:25 PM DIGITAL EDITOR Inhaled Oxygen Concentration - - Weight 68.4 kg (150 lb 12.8 oz) 08/10/2024 5:59 PM DIGITAL EDITOR Height 165.1 cm (5' 5) 08/10/2024 5:59 PM DIGITAL EDITOR Body Mass Index 25.09 08/10/2024 5:59 PM DIGITAL EDITOR Plan of Treatment Health Maintenance Due Date Last Done Comments Pap test for age 21-65 05/02/2019 6, 05/02/2016, 05/02/2016, Additional history exists COVID-19 vaccine series ( season) 2024 Influenza Vaccine (#1) 2024 03/23/2010, 2009 BMI (ht and wt on [...] Procedure Name Priority Date/Time Associated Diagnosis Comments XR HAND 3 VIEWS RIGHT STAT 08/10/2024 6:26 PM DIGITAL EDITOR ANTI HIV 1/2 Routine 01/29/2021 10:44 AM CDT care, subsequent in first trimester (HC) ANTI HCV Routine 01/29/2021 10:44 AM CDT care, subsequent in first trimester (HC) TARIFF COMPILING CLERK THIN PREP PAP SCREEN IMAGED Routine 05/02/2016 4:36 PM CDT Low grade squamous intraepithelial lesion (LGSIL) on cervical Pap smear from Last 3 Months or Most Recently Relevant to Health Maintenance Results * XR HAND 3 VIEWS RIGHT (08/10/2024 6:26 PM DIGITAL EDITOR) Anatomical Region Laterality Modality HANDS, HAND R Digital Radiogra phy 08/10/2024 7:02 PM DIGITAL EDITOR Narrative 08/10/2024 7:02 PM DIGITAL EDITOR For Patients: As a result of the Cures Act, medical imaging exams and procedure reports are released immediately into your electronic medical record. You may view this report before your referring provider. If you have questions, please contact your health care provider. Indication: Pain, trauma Technique: Three views right hand Comparison: 07/04/2020 Findings/Impression: Bones: Alignment is normal. No fractures or bone lesions. Joint spaces: Unremarkable. Soft tissues: Unremarkable. Dictated by Marty Redding MD @ 08/10/2024 7:02:46 PM (Electronically Signed) Procedure Note Marty Redding MD - 08/10/2024 For Patients: As a result of the Cures Act, medical imagingexams and procedure reports are released immediately into your electronicmedical record. You may view this report before your referring provider.If you have questions, please contact your health care provider. Indication: Pain, trauma Technique: Three views right hand Comparison: 07/04/2020 Findings/Impression: Bones: Alignment is normal. No fractures or bone lesions. Joint spaces: Unremarkable. Soft tissues: Unremarkable. Dictated by Marty Redding MD @ 08/10/2024 7:02:46 PM (Electronically Signed) [facility] Fin al Result * ANTI HCV (01/29/2021 10:44 AM CDT) HEPATITIS C ANTIBODY Non-React calli Non-React calli 01/29/2021 5:51 PM CDT [facility] Comment:Antibodies to HCV no t detected; does not exclude the possibility of exposure to HCV. Blood BLOOD SPECIMEN / Unknown Venipuncture / Unknown 01/29/2021 10:44 AM CDT 01/29/2021 10:46 AM CDT Juanita Bean MD SEND OUTS Final Re sult Performing Organization Address City/[facility]/ZIP Co de Phone Number [facility] [address] [place] [address], [place] * ANTI HIV 1/2 (01/29/2021 10:44 AM CDT) HIV-1/HIV-2 ANTIBODY Non-Reacti ve Non-Reacti ve 01/29/2021 5:53 PM CDT [facility] Comment:HIV-1 p24 and HIV-1/ HIV-2 Ab not detected. Blood BLOOD SPECIMEN / Unknown Venipuncture / Unknown 01/29/2021 10:44 AM CDT 01/29/2021 10:46 AM CDT Juanita Bean MD SEND OUTS Final Re sult Performing Organization Address [facility] Co de Phone Number [facility] [address] [place] [address], [place] * TARIFF COMPILING CLERK THIN PREP PAP SCREEN IMAGED [[id number]] (05/02/2016 4:36 PM CDT) Case Report Gynecologic Cytology Report Case: [id number] Authorizing Provider: Britney Reeves MD Collected: 05/02/2016 1636 Ordering Location: [facility] Received: 05/02/2016 [facility] First Screen: Boyd Sharp Pathologist: Gerald Boo MD Specimen: TARIFF COMPILING CLERK ThinPrep Vial Diagnostic, Cervical 08/27/2016 5:20 PM DIGITAL EDITOR [facility] [employer] ENTRAL LABORAT[facility] Amendment [id number] displays the correct provider order. This amendment is issued to reflect the clinic incorrectly orderd this ThinPrep Pap as Screening instead of Diagnostic. The diagnosis does not change. 08/27/2016 5:20 PM DIGITAL EDITOR [facility] [employer] ENTRAL LABORATORY INTERPRETATION/ RESULT NEGATIVE FOR INTRAEPITHELIAL LESION OR MALIGNANCY (NIL) (none) 08/27/2016 5:20 PM DIGITAL EDITOR [facility] EN[facility]AL LABOR[facility]ORY Amendment electronically signed by Gerald Boo MD on 08/27/2016 at 5:20 PM R NON-NEOPLASTIC FINDING(S) Reactive cellular changes associated with inflammation/repa ir 08/27/2016 5:20 PM DIGITAL EDITOR [facility] [employer] [facility] ENTRAL LABORATORY SPECIMEN ADEQUACY Satisfactory for evaluation Endocervical component present 08/27/2016 5:20 PM DIGITAL EDITOR [facility] ENTRAL LABORATORY HPV REQUEST HPV and PAP 08/27/2016 5:20 PM DIGITAL EDITOR [facility] LAB[facility] Date of LMP 08/27/2016 5:20 PM DIGITAL EDITOR [facility] Last Pap Date 08/16/15 08/27/2016 5:20 PM DIGITAL EDITOR [facility] Last Pap Result LSIL 7 5:20 PM DIGITAL EDITOR [facility] LAB[facility]ORY Abnormal Pap or [place] Bx in last 5 years Yes 08/27/2016 5:20 PM DIGITAL EDITOR [facility] LAB[facility]ORY Menstrual Status 08/27/2016 5:20 PM DIGITAL EDITOR [facility] ENTRAL LABORATORY [place] Bx Done Today No 08/27/2016 5:20 PM DIGITAL EDITOR [facility] [employer] [facility] ENTRAL LABORATORY Additional Information None given 08/27/2016 5:20 PM DIGITAL EDITOR [facility] ENTRAL LABORATORY Automated Review Successful 08/27/2016 5:20 PM DIGITAL EDITOR [facility] ENTRAL LABORATORY Comment:Specimen processed s uccessfully by automated vegetables cook device, ThinPrep Imaging System, [employer] ANCILLARY TESTING TARIFF COMPILING CLERK HPV Ordered, Please see separate report 08/27/2016 5:20 PM DIGITAL EDITOR [facility] ENTRNV LABORATORY Note The pap test is a screening technique, not a diagnostic procedure. It is used primarily to screen for squamous cancers and precursor lesions. Published studies have shown that it is subject to both false negative and false positive results. The pap test should not be used as the sole means to diagnose or exclude pre-malignant and malignant lesions. 08/27/2016 5:20 PM DIGITAL EDITOR [facility] [employer] [facility] ENTRAL LABORATORY Other (Cervical) 05/02/2016 4:36 PM CDT 05/02/2016 4:36 PM CDT Britney Reeves MD PATHOLOGY/CYTOLOGY Edited Result - Final [facility] [address] [place] [address], [place] from Last 3 Months or Most Recently Relevant to Health Maintenance Insurance [facility] [address] [place] [id number] [facility] [address] [place] [id number] [facility] Advance Directives * Full Code (Latest Code Status on File) Date Activated Date Inactivated Comments 09/18/2021 1:21 PM 09/20/2021 12:32 PM Question Answer Comments Code Status Discussion: Discussed Care Teams Wind Farm Electrical Systems Designer Relationship Specialty Start Date End [place] [address] PCP - General Family Practice 11/19/23
--- OUTSIDE RECORDS SUMMARY | 2024-09-17 00:59 | XMS_ITS | Clinical Summary ---
Author Organization [facility] Address [address] [place] [id number] Care Team Providers Care Manager Application Development Name Role Phone Elsewhere, Pcp Primary Care Provider Unavailabl e Source Comments Patient records contain information from all sites at [facility]. For routine questions regarding patient records, call [phone] during business hours, M-F 8:00 AM - 5:00 PM Central Time. Record requests for emergency care only can be directed to [phone] at any time.[facility] Allergies Active Allergy Reactions Criticality Noted Date [...] often do you attend chur ch or uatsdin services? More than 4 times per year 07/04/2021 Do you belong to any clubs o r organizations such as mu-ism groups, unions, fraternal or athletic groups, or [...] Answer Date Recorded PHQ-2 Score 3 01/29/2023 [facility] - [...] Sex Assigned at Female 07/04/2021 3:43 PM CONNIE CLEANER Legal Sex Female 7:11 PM CONNIE CLEANER Gender Identity Female 07/04/2021 3:43 PM CONNIE CLEANER Sexual Orientation Straight 05/08/2021 2: 48 PM CONNIE CLEANER Occupation Industry Job Start Date Job End [...] patient's age to complete this topic Insurance [place] Care Teams Manager Application Development Relationship Specialty Start Date End Date Elsewhere, Pcp PCP - General Family Medicine 01/21/21
[2024-09-17] MEDS: HYDROmorphone 0.5 mg/0.5 ml inj IVP (01:23)
[2024-09-17 01:57] VITALS: BP 130/80; PULSE 66; RESP 16; TEMP 36.6; O2SAT 99
== END 2024-09-17 02:07 | disposition home or self-care (01) ==
PROVIDERS: Emergency Provider Family Medicine
DX: N39.0 Urinary tract infection, site not specified (principal)
CPT/HCPCS: 81001; 87086; 96365; 96375; 99282; 99283; 99284; J0696; J1171; J1885; J7030

== ENCOUNTER 2024-10-20 21:16 | Emergency (ER) | payer BC, SELFPAY ==
--- OUTSIDE RECORDS SUMMARY | 2024-10-20 21:18 | XMS_ITS | Clinical Summary ---
Author Organization [facility] Address [address] [place] [id number] Care Team Providers Care Nanotechnologist Name Role Phone Sara Us MD Primary [...] Department Care Team Description 08/10/2024 5:52 PM WALL COVERING INSTALLER - 08/10/2024 7:25 PM WALL COVERING INSTALLER Emergency [facility] [address] [place] [address] Carlitos Rodríguez PA Finger injury, right, initial [...] AM CDT Legal Sex Female 5:23 AM WALL COVERING INSTALLER Gender Identity Female 01/05/2021 11:19 AM CDT [...] 9 9 [place] Delivery Location:[facility] Comments:PTL 36+:monit ored 2011 35w 5d 24h 00m 1.33 kg (2 lb 15 oz) F Vag-S pont Epidur al N Livin g Delivery Location:[facility] Comments:induction-IUG R;double nuchal cord 2015 Term 38w 0d 1h 30m 3.63 kg (8 lb) M Vag-S pont Epidur al N Livin g Complications:None Delivery Location:[facility] 2021 Term 38w 4d 7h 17m 7h 12m/0h 04m/0h 01m 2.65 kg (5 lb 13.5 oz) F Vag-S pont Epidur al Livin g 5 7 LIU IRIZARRY,BG BRADLEY Boothe , Edgar Poole MD Delivery Location:Hospital ( [facility] ) Comments 3 NSVDs, proven pelvis to 8# Last Filed Vital Signs Vital Sign Reading Time Taken Comments Blood Pressure 119/80 08/10/2024 7:25 PM WALL COVERING INSTALLER Pulse 87 08/10/2024 7:25 PM WALL COVERING INSTALLER Temperature 36.6 C (97.8 F) 08/10/2024 5:59 PM WALL COVERING INSTALLER Respiratory Rate 16 08/10/2024 5:59 PM WALL COVERING INSTALLER Oxygen Saturation 97% 08/10/2024 7:25 PM WALL COVERING INSTALLER Inhaled Oxygen Concentration - - Weight 68.4 kg (150 lb 12.8 oz) 08/10/2024 5:59 PM WALL COVERING INSTALLER Height 165.1 cm (5' 5) 08/10/2024 5:59 PM WALL COVERING INSTALLER Body Mass Index 25.09 08/10/2024 5:59 PM WALL COVERING INSTALLER Plan of Treatment Health Maintenance Due Date Last Done Comments Pap test for age 21-65 05/02/2019 6, 05/02/2016, 05/02/2016, Additional history exists COVID-19 vaccine series ( season) 2024 BMI (ht and wt on same day) for age 18+ 10/27/2024 10/28/2023, 01/15/2021, 01/08/2021, Additional history exists Depression screening for age 12+ 11/18/2024 11/19/2023, 11/19/2023, 01/15/2021, Additional history exists Influenza Vaccine (Season Ended) 2025 03/23/2010, 03/23/2010 Tetanus booster 08/07/2031 08/07/2021, 02/26/2016 HIV for age 15-65 Completed 01/29/2021, , 08/16/2015, Additional history exists Hepatitis C screening for age 18-79 Completed 01/29/2021 Tdap Completed 08/07/2021, 02/26/2016 Pneumococcal series for age 6-49 Aged Out No longer eligible based on patient's age to complete this topic Procedures Procedure Name Priority Date/Time Associated Diagnosis Comments XR HAND 3 VIEWS RIGHT STAT 08/10/2024 6:26 PM WALL COVERING INSTALLER ANTI HIV 1/2 Routine 01/29/2021 10:44 AM CDT care, subsequent in first trimester (HC) ANTI HCV Routine 01/29/2021 10:44 AM CDT care, subsequent in first trimester (HC) MOLECULAR MODELER THIN PREP PAP SCREEN IMAGED Routine 05/02/2016 4:36 PM CDT Low grade squamous intraepithelial lesion (LGSIL) on cervical Pap smear from Last 3 Months or Most Recently Relevant to Health Maintenance Results * XR HAND 3 VIEWS RIGHT (08/10/2024 6:26 PM WALL COVERING INSTALLER) Anatomical Region Laterality Modality HANDS, HAND R Digital Radiogra phy 08/10/2024 7:02 PM WALL COVERING INSTALLER Narrative 08/10/2024 7:02 PM WALL COVERING INSTALLER For Patients: As a result of the [...] calli Non-React calli 01/29/2021 5:51 PM CDT [facility] Comment:Antibodies to HCV no t detected; does not exclude the possibility of exposure to HCV. Blood BLOOD SPECIMEN / Unknown Venipuncture / Unknown 01/29/2021 10:44 AM CDT 01/29/2021 10:46 AM CDT Juanita Bean MD SEND OUTS Final Re sult Performing Organization Address City/[facility]/ZIP Co de Phone Number [facility] [address] [place] [address], [place] * ANTI HIV 1/2 (01/29/2021 10:44 AM CDT) HIV-1/HIV-2 ANTIBODY Non-Reacti ve Non-Reacti ve 01/29/2021 5:53 PM CDT [facility] Comment:HIV-1 p24 and HIV-1/ HIV-2 Ab not detected. Blood BLOOD SPECIMEN / Unknown Venipuncture / Unknown 01/29/2021 10:44 AM CDT 01/29/2021 10:46 AM CDT Juanita Bean MD SEND OUTS Final Re sult Performing Organization Address [facility] Co de Phone Number [facility] [address] [place] [address], [place] * MOLECULAR MODELER THIN PREP PAP SCREEN IMAGED [[id number]] (05/02/2016 4:36 PM CDT) Case Report Gynecologic Cytology Report Case: [id number] Authorizing Provider: Britney Reeves MD Collected: 05/02/2016 1636 Ordering Location: [facility] Received: 05/02/2016 [facility] Clinic First Screen: Boyd Sharp Pathologist: Gerald Boo MD Specimen: MOLECULAR MODELER ThinPrep Vial Diagnostic, Cervical 08/27/2016 5:20 PM WALL COVERING INSTALLER [facility] Amendment [id number] displays the correct provider order. This amendment is issued to reflect the clinic incorrectly orderd this ThinPrep Pap as Screening instead of Diagnostic. The diagnosis does not change. 08/27/2016 5:20 PM WALL COVERING INSTALLER [facility] [employer] [facility] INTERPRETATION/ RESULT NEGATIVE FOR INTRAEPITHELIAL LESION OR MALIGNANCY (NIL) (none) 08/27/2016 5:20 PM WALL COVERING INSTALLER [facility] Amendment electronically signed by Gerald Boo MD on 08/27/2016 at 1720 WALL COVERING INSTALLER at 1557 WALL COVERING INSTALLER OTHER NON-NEOPLASTIC FINDING(S) Reactive cellular changes associated with inflammation/repa ir 08/27/2016 5:20 PM WALL COVERING INSTALLER [facility] [employer] [facility] SPECIMEN ADEQUACY Satisfactory for evaluation Endocervical component present 08/27/2016 5:20 PM WALL COVERING INSTALLER [facility] HPV REQUEST HPV and PAP 08/27/2016 5:20 PM WALL COVERING INSTALLER [facility] Date of LMP 08/27/2016 5:20 PM WALL COVERING INSTALLER [facility] Last Pap Date 08/16/15 08/27/2016 5:20 PM WALL COVERING INSTALLER [facility] Last Pap Result LSIL 7 5:20 PM WALL COVERING INSTALLER [facility] Abnormal Pap or Roberts Bx in last 5 years Yes 08/27/2016 5:20 PM WALL COVERING INSTALLER [facility] Menstrual Status 08/27/2016 5:20 PM WALL COVERING INSTALLER [facility] Roberts Bx Done Today No 08/27/2016 5:20 PM WALL COVERING INSTALLER [facility] [employer] [facility] EN[facility] Additional Information None given 08/27/2016 5:20 PM WALL COVERING INSTALLER [facility] Automated Review Successful 08/27/2016 5:20 PM WALL COVERING INSTALLER [facility] Comment:Specimen processed s uccessfully by automated smutter device, ThinPrep Imaging System, [employer] ANCILLARY TESTING MOLECULAR MODELER HPV Ordered, Please see separate report 08/27/2016 5:20 PM WALL COVERING INSTALLER [facility] Note The pap test is a screening technique, not a diagnostic procedure. It is used primarily to screen for squamous cancers and precursor lesions. Published studies have shown that it is subject to both false negative and false positive results. The pap test should not be used as the sole means to diagnose or exclude pre-malignant and malignant lesions. 08/27/2016 5:20 PM WALL COVERING INSTALLER [facility] [employer] [facility] EN[facility]AL [facility] Other (Cervical) 05/02/2016 4:36 PM CDT 05/02/2016 4:36 PM CDT us Britney Reeves MD PATHOLOGY/CYTOLOGY Edited Result - Final [facility] [employer] [facility] [address] [place] [address], [place] from Last 3 Months or Most Recently Relevant to Health Maintenance Insurance [facility] [address] [place] [id number] [facility] [address] [place] [id number] [facility] Advance Directives * Full Code (Latest Code Status on File) Date Activated Date Inactivated Comments 09/18/2021 1:21 PM 09/20/2021 12:32 PM Question Answer Comments Code Status Discussion: Discussed Care Teams Nanotechnologist Relationship Specialty Start Date End Date Sara [place] [address] PCP - General Family Practice 11/19/23
--- OUTSIDE RECORDS SUMMARY | 2024-10-20 21:18 | XMS_ITS | Clinical Summary ---
Author Organization [facility] Address [address] [place] [address] Care Team Providers Care Drill Doctor Name Role Phone Elsewhere, Pcp Primary Care Provider Unavailabl e Source Comments Patient records contain information from all sites at [facility]. For routine questions regarding patient records, call [phone] during business hours, M-F 8:00 AM - 5:00 PM Central Time. Record requests for emergency care only can be directed to [phone] at any time.[facility] Allergies [...] often do you attend chur ch or jehovah's witness services? More than 4 times per year 07/04/2021 Do you belong to any clubs o r organizations such as mandaeism groups, unions, fraternal or athletic groups, or [...] Answer Date Recorded PHQ-2 Score 3 01/29/2023 [facility] of Occupat ional Health - Occupational Stress [...] Sex Assigned at Female 07/04/2021 3:43 PM GROUP WORK PROGRAM AIDE Legal Sex Female 7:11 PM GROUP WORK PROGRAM AIDE Gender Identity Female 07/04/2021 3:43 PM GROUP WORK PROGRAM AIDE Sexual Orientation Straight 05/08/2021 2: 48 PM GROUP WORK PROGRAM AIDE Occupation Industry Job Start Date Job End [...] Cervical/Vaginal Cancer Screening 05/02/2019 05/02/2016 COVID-19 Vaccine (1 - 2023- season) 2024 Influenza Vaccine (#1) 2024 0, 03/23/2010 Depression Screening (Annual PHQ-2) 06/30/2024 DTaP,Tdap,and Td Vaccines (3 - Td or Tdap) 08/07/2031 08/07/2021, 02/26/2016 HIV Screening Addressed 01/29/2021 (Performed elsewhere) Overridden with the intention of not completing the topic Hepatitis B Screening Discontinued 01/29/2021 Hepatitis C Screening Addressed 01/29/2021 (Performed elsewhere) Overridden with the intention of not completing the topic IPV Vaccines Aged Out No longer eligi ble based on patient's age to complete this topic Pneumococcal vaccine (0-49 years) Aged Out No longer eligible b ased on patient's age to complete this topic Insurance [place] [employer]ICA[employer] Care Teams Drill Doctor Relationship Specialty Start Date End Date Elsewhere, Pcp PCP - General Family Medicine 01/21/21
[2024-10-20 21:22] VITALS: BP 114/74; PULSE 101; RESP 18; TEMP 36.9; O2SAT 97; BMI 28.0
--- NOTE | 2024-10-20 21:38 | ED_ITS ---
HPI - Headache General Time Seen by Provider: 21:38 Date Seen: 10/20/24 Chief Complaint: Headache/Migraine Stated Complaint: migraine last 3 days Time Seen by Provider: 10/20/24 21:37 Source: patient, RN notes reviewed and old records reviewed Mode of arrival: ambulatory Limitations: no limitations History of Present Illness HPI Narrative: This 33-year-old female is coming in with a migraine headache. Is been present for about 3 days, has not responded to her triptans at home, oral diuy-mmu-xthensp medicines like Tylenol and ibuprofen. She also has Zofran at h ome which she has been using to control her nausea. She has photophobia and phonophobia but no visual changes, no neurologic changes. She has a history of migraines. She has not been sick with anything, no cough or cold symptoms, no fevers or chills. No trauma. She is in nursing school. She has been in with migraines before, does not come infrequently. We discussed different things that she is had here with the Julita and Lyric. She really is interested in receiving the ketamine, they had to go to that the last couple of time she was here. We discussed IV fluids, discussed Toradol in other medicines. She would like to proceed with the IV fluids in the ketamine infusion. Her headaches have not typically responded to Toradol per report. MD elicited complaint: migraine Related Data Home Medications ?Medication ?Instructions ?Recorded ?Confirmed clonazepam 1 mg tablet 1 mg PO BID PRN 02/23/24 10/20/24 dextroamphetamine-amphetamine ER 1 cap PO QAM 02/23/24 10/20/24 15 mg 24hr capsule,extend release lamotrigine 25 mg tablet 25 mg PO Q12H 04/14/24 10/20/24 Allergies Allergy/AdvReac Type Severity Reaction Status Date / Time bee venom protein (honey bee) AdvReac Mild edema Verified 10/20/24 21:28 Review of Systems Status of ROS: Reports: 6 or more systems reviewed and unremarkable except as noted in History and below [facility] Medical History Polysubstance abuse ?F19.10 - Other psychoactive substance abuse, uncomplicated (ICD-10) Anxiety ?F41.9 - Anxiety disorder, unspecified (ICD-10) ADHD ?F90.9 - Attention-deficit hyperactivity disorder, unspecified type (ICD-10) Social History Smoking Status: Former smoker Do you use any of these nicotine containing products: Vaping Products Second hand tobacco smoke exposure: No How often do you have a drink containing alcohol: never AUDIT-C Alcohol total score: 0 Non-prescribed substance use: denies use Non-prescribed substance use details: clean since 2009 service: No Exam Const: Vital Signs, click to edit/add: Vital Signs - 24 hr 10/20/24 21:22 10/20/24 21:42 Temperature 98.5 F Pulse Rate [Right Pulse Oximeter] 101 H Respiratory Rate 18 Blood Pressure [Ri ght Upper Arm] 114/74 Pulse Oximetry 97 99 This 33-year-old female is alert, interactive, no apparent distress. She has the pillow covering her head when I come in, does remove it. Prefers to have the room dark but pupils are equal round reactive, conjugate gaze, symmetrical facial function, speech normal. TMs canals are normal. Neck is supple. Lungs are clear, good air entry, no wheezing or crackles. CV regular rate and rhythm, no murmur. Abdomen is soft, nontender, nondistended, no organomegaly, rebound or guarding. Strength is 5 5 and symmetric, no focal neurologic deficits, normal sensation. Patient did ambulate in. She does smell of cigarette smoke. Documenting provider has reviewed patient's vital signs: yes Course Course ED Course: Patient has atypical migraine that has been unresponsive to usual home meds. Will place an IV, give her L of IV fluids and do the 20 mg ketamine infusion. Do not feel that she needs any labs or any neuro imaging. Reevaluation(s) Time of Reevaluation #1: 23:01 Reevaluation #1: Patient is sitting up, texting. She states she feels much better. We will discharge to home. Vital Signs Vital signs: Initial Vital Signs Temperature 98.5 F 10/20/24 21:22 Temperature Source Temporal Artery Scan 10/20/24 21:22 Pulse Rate 101 H 10/20/24 21:22 Respiratory Rate 18 10/20/24 21:22 Blood Pressure 114/74 10/20/24 21:22 Blood Pressure Mean 87 10/20/24 21:22 Blood Pressure Position Sitting 10/20/24 21:22 Pulse Oximetry 97 10/20/24 21:22 Vital Signs Temperature 98.5 F 10/20/24 21:22 Pulse Rate 101 H 10/20/24 21:22 Respiratory Rate 18 10/20/24 21:22 Blood Pressure 114/74 10/20/24 21:22 Pulse Oximetry 97 10/20/24 21:22 Temperature 98.5 F 10/20/24 21:22 Pulse Rate 101 H 10/20/24 21:22 Respiratory Rate 18 10/20/24 21:22 Blood Pressure 114/74 10/20/24 21:22 Pulse Oximetry 99 10/20/24 21:42 Medications Administered Medications: Discontinued Medications Generic Name Dose Route Start Last Admin Trade Name Freq PRN Reason Stop Dose Admin Sodium Chloride 1,000 mls @ 1,000 mls/hr 10/20/24 21:42 10/20/24 22:00 0.9 % Sodium Chloride 1000 Ml IV 10/20/24 22:41 1,000 mls/hr .Q1H MG Administration Ketamine HCl 20 mg/ Sodium 100.2 mls @ 200.4 mls/hr 10/20/24 21:42 10/20/24 22:41 Chloride IVPB 10/20/24 21:43 Infused ONCE ONE Infusion Discharge Plan Discharge Clinical Impression: Migraine Qualifiers: Migraine type: unspecified Patient Disposition: Home, Self-Care Condition: Stable Instructions: Migraine Headache (ED) Additional Instructions: Recommend trying to sleep. Drink plenty of fluids, staying hydrated does help in migraine prevention. Can resume usual home protocol for migraine headaches if you have residual headache return. Obviously if her headache worsens and is not responding to home medicines, can return to the ER. Activity Level: Activity as Tolerated Prescriptions: No Action lamotrigine 25 mg tablet 25 mg PO Q12H clonazepam 1 mg tablet 1 mg PO BID PRN dextroamphetamine-amphetamine 15 mg capsule,extended release 24hr 1 cap PO QAM Follow Up/Referrals: Sara Centeno MD [Primary Care Provider] - Stand Alone Forms: [employer] Info Instructions
[2024-10-20 21:42] VITALS: O2SAT 99
[2024-10-20] MEDS: 0.9 % SODIUM CHLORIDE 1000 ml 1,000 ML IV (22:00)
[2024-10-20] MEDS: KETAMINE 50 MG/0.5 ML 20 MG in 0.9 % SODIUM CHLORIDE 100 ml 100 ML 200.4 MG IVPB (22:01)
--- OUTSIDE RECORDS SUMMARY | 2024-10-20 22:09 | XMS_ITS | Clinical Summary ---
Author Organization [facility] Address [address] [place] [address] Care Team Providers Care Instructor Apparel Manufacture Name Role Phone Elsewhere, Pcp Primary Care Provider Unavailabl e Source Comments Patient records contain information from all sites at [facility]. For routine questions regarding patient records, call [phone] during business hours, M-F 8:00 AM - 5:00 PM Central Time. Record requests for emergency care only can be directed to [phone] at any time.[facility] Allergies Active Allergy Reactions Criticality Noted Date [...] any clubs o r organizations such as adventist groups, unions, fraternal or athletic groups, or [...] Sex Assigned at Female 07/04/2021 3:43 PM AUTO BRAKE TECHNICIAN Legal Sex Female 7:11 PM AUTO BRAKE TECHNICIAN Gender Identity Female 07/04/2021 3:43 PM AUTO BRAKE TECHNICIAN Sexual Orientation Straight 05/08/2021 2: 48 PM AUTO BRAKE TECHNICIAN Occupation Industry Job Start Date Job End [...] patient's age to complete this topic Insurance [place] [employer] Care Teams Instructor Apparel Manufacture Relationship Specialty Start Date End Date Elsewhere, Pcp PCP - General Family Medicine 01/21/21
--- OUTSIDE RECORDS SUMMARY | 2024-10-20 22:09 | XMS_ITS | Clinical Summary ---
Author Organization [employer] [facility] Address [address] [place] [address] Care Team Providers Care Patient Services Specialist Name Role Phone Sara Us MD Primary [...] Department Care Team Description 08/10/2024 5:52 PM HEEL PADDER - 08/10/2024 7:25 PM HEEL PADDER Emergency [facility] [address] [place] [address] Carlitos Rodríguez PA Finger injury, right, initial [...] AM CDT Legal Sex Female 5:23 AM HEEL PADDER Gender Identity Female 01/05/2021 11:19 AM CDT [...] Livin g 9 9 [place] Delivery Location:[facility] Comments:PTL 36+:monit ored 2011 35w 5d 24h 00m 1.33 kg (2 lb 15 oz) F Vag-S pont Epidur al N Livin g Delivery Location:[facility] Comments:induction-IUG R;double nuchal cord 2015 Term 38w 0d 1h 30m 3.63 kg (8 lb) M Vag-S pont Epidur al N Livin g Complications:None Delivery Location:[place] 2021 Term 38w 4d 7h 17m 7h 12m/0h 04m/0h 01m 2.65 kg (5 lb 13.5 oz) F Vag-S pont Epidur al Livin g 5 7 LIU IRIZARRY,BG BRADLEY Boothe , Edgar Poole MD Delivery Location:Hospital ( [facility] ) Comments 3 NSVDs, proven pelvis to 8# Last Filed Vital Signs Vital Sign Reading Time Taken Comments Blood Pressure 119/80 08/10/2024 7:25 PM HEEL PADDER Pulse 87 08/10/2024 7:25 PM HEEL PADDER Temperature 36.6 C (97.8 F) 08/10/2024 5:59 PM HEEL PADDER Respiratory Rate 16 08/10/2024 5:59 PM HEEL PADDER Oxygen Saturation 97% 08/10/2024 7:25 PM HEEL PADDER Inhaled Oxygen Concentration - - Weight 68.4 kg (150 lb 12.8 oz) 08/10/2024 5:59 PM HEEL PADDER Height 165.1 cm (5' 5) 08/10/2024 5:59 PM HEEL PADDER Body Mass Index 25.09 08/10/2024 5:59 PM HEEL PADDER Plan of Treatment Health Maintenance Due Date [...] 3 VIEWS RIGHT STAT 08/10/2024 6:26 PM HEEL PADDER ANTI HIV 1/2 Routine 01/29/2021 10:44 AM CDT care, subsequent in first trimester (HC) ANTI HCV Routine 01/29/2021 10:44 AM CDT care, subsequent in first trimester (HC) METHODS STUDY ANALYST THIN PREP PAP SCREEN IMAGED Routine 05/02/2016 4:36 PM CDT Low grade squamous intraepithelial lesion (LGSIL) on cervical Pap smear from Last 3 Months or Most Recently Relevant to Health Maintenance Results * XR HAND 3 VIEWS RIGHT (08/10/2024 6:26 PM HEEL PADDER) Anatomical Region Laterality Modality HANDS, HAND R Digital Radiogra phy 08/10/2024 7:02 PM HEEL PADDER Narrative 08/10/2024 7:02 PM HEEL PADDER For Patients: As a result of the [...] calli Non-React calli 01/29/2021 5:51 PM CDT [facility] Comment:Antibodies to HCV no t detected; does not exclude the possibility of exposure to HCV. Blood BLOOD SPECIMEN / Unknown Venipuncture / Unknown 01/29/2021 10:44 AM CDT 01/29/2021 10:46 AM CDT Juanita Bean MD SEND OUTS Final Re sult Performing Organization Address City/[facility]/ZIP Co de Phone Number [facility] [address] [place] [address], [place] * ANTI HIV 1/2 (01/29/2021 10:44 AM CDT) HIV-1/HIV-2 ANTIBODY Non-Reacti ve Non-Reacti ve 01/29/2021 5:53 PM CDT [facility] TRAL [facility]OR[facility] Comment:HIV-1 p24 and HIV-1/ HIV-2 Ab not detected. Blood BLOOD SPECIMEN / Unknown Venipuncture / Unknown 01/29/2021 10:44 AM CDT 01/29/2021 10:46 AM CDT Juanita Bean MD SEND OUTS Final Re sult Performing Organization Address [facility]UST Co de Phone Number [facility] [address] [place] [address], [place] * METHODS STUDY ANALYST THIN PREP PAP SCREEN IMAGED [[id number]] (05/02/2016 4:36 PM CDT) Case Report Gynecologic Cytology Report Case: [id number] Authorizing Provider: Britney Reeves MD Collected: 05/02/2016 1636 Ordering Location: [facility] Received: 05/02/2016 [facility] First Screen: Boyd Sharp Pathologist: Gerald Boo MD Specimen: METHODS STUDY ANALYST ThinPrep Vial Diagnostic, Cervical 08/27/2016 5:20 PM HEEL PADDER [facility] [employer] ENTRAL LABORATORY Amendment [id number] displays the correct provider order. This amendment is issued to reflect the clinic incorrectly orderd this ThinPrep Pap as Screening instead of Diagnostic. The diagnosis does not change. 08/27/2016 5:20 PM HEEL PADDER [facility] [employer] ENTRAL LABORATORY INTERPRETATION/ RESULT NEGATIVE FOR INTRAEPITHELIAL LESION OR MALIGNANCY (NIL) (none) 08/27/2016 5:20 PM HEEL PADDER [facility] ENTRAL LABORATORY Amendment electronically signed by Gerald Boo MD on 08/27/2016 at 1720 HEEL PADDER at 1557 HEEL PADDER OTHER NON-NEOPLASTIC FINDING(S) Reactive cellular changes associated with inflammation/repa ir 08/27/2016 5:20 PM HEEL PADDER [facility] [employer] [facility] ENTRAL LABORATORY SPECIMEN ADEQUACY Satisfactory for evaluation Endocervical component present 08/27/2016 5:20 PM HEEL PADDER [facility] ENTRAL LABORATORY HPV REQUEST HPV and PAP 08/27/2016 5:20 PM HEEL PADDER [facility] ENTRAL LABORATORY Date of LMP 08/27/2016 5:20 PM HEEL PADDER [facility] EN[facility]AL LABORAT[facility] Last Pap Date 08/16/15 08/27/2016 5:20 PM HEEL PADDER [facility] EN[facility]AL LABOR[facility] Last Pap Result LSIL 7 5:20 PM HEEL PADDER [facility] EN[facility]AL LABORATORY Abnormal Pap or [place] Bx in last 5 years Yes 08/27/2016 5:20 PM HEEL PADDER [facility] ENTRAL LABORATORY Menstrual Status 08/27/2016 5:20 PM HEEL PADDER [facility] ENTRAL LABORATORY Marrero Bx Done Today No 08/27/2016 5:20 PM HEEL PADDER [facility] [employer] [facility] ENTRAL LABORATORY Additional Information None given 08/27/2016 5:20 PM HEEL PADDER [facility] ENTRAL LABORATORY Automated Review Successful 08/27/2016 5:20 PM HEEL PADDER [facility] ENTRAL LABORATORY Comment:Specimen processed s uccessfully by automated seam presser device, ThinPrep Imaging System, [employer] ANCILLARY TESTING METHODS STUDY ANALYST HPV Ordered, Please see separate report 08/27/2016 5:20 PM HEEL PADDER [facility] ENTRAL LABORATORY Note The pap test is [...] pre-malignant and malignant lesions. 08/27/2016 5:20 PM HEEL PADDER [facility] [employer] [facility] ENTRAL LABORATORY Other (Cervical) 05/02/2016 4:36 PM CDT 05/02/2016 4:36 PM CDT us Britney Reeves MD PATHOLOGY/CYTOLOGY Edited Result - Final [facility] [employer] LABORATORY-CENTRAL LABORATORY [address] [place] [address], [place] from Last 3 Months or Most Recently Relevant to Health Maintenance Insurance [facility] [address] [place] [phone] [facility] [address] [place] [phone] [facility] Advance Directives * Full Code (Latest Code Status on File) Date Activated Date Inactivated Comments 09/18/2021 1:21 PM 09/20/2021 12:32 PM Question Answer Comments Code Status Discussion: Discussed Care Teams Patient Services Specialist Relationship Specialty Start Date End Date [place] [address] [place] [address] PCP - General Family Practice 11/19/23
[2024-10-20 23:14] VITALS: BP 114/94; PULSE 84; RESP 18; TEMP 37.1; O2SAT 97
== END 2024-10-20 23:18 | disposition home or self-care (01) ==
PROVIDERS: Emergency Provider Family Medicine
DX: G43.909 Migraine, unspecified, not intractable, without status migrainosus (principal)
CPT/HCPCS: 94761; 96365; 99284; J3490; J7030

== ENCOUNTER 2024-10-29 19:08 | Emergency (ER) | payer BC, SELFPAY ==
--- OUTSIDE RECORDS SUMMARY | 2024-10-29 19:11 | XMS_ITS | Clinical Summary ---
Author Organization [employer] [facility] Address [address] [place] [address] Care Team Providers Care Solar Photovoltaic Installer Name Role Phone Sara Us MD Primary [...] Department Care Team Description 08/10/2024 5:52 PM SOUND RECORDING TECHNICIAN - 08/10/2024 7:25 PM SOUND RECORDING TECHNICIAN Emergency [facility] [address] [place] [address] Carlitos Rodríguez PA Finger injury, right, initial [...] AM CDT Legal Sex Female 5:23 AM SOUND RECORDING TECHNICIAN Gender Identity Female 01/05/2021 11:19 AM CDT [...] Livin g 9 9 [place] Delivery Location:[facility] Comments:PTL 36+:monit ored 2011 35w 5d 24h 00m 1.33 kg (2 lb 15 oz) F Vag-S pont Epidur al N Livin g Delivery Location:[facility] Comments:induction-IUG R;double nuchal cord 2015 Term 38w 0d 1h 30m 3.63 kg (8 lb) M Vag-S pont Epidur al N Livin g Complications:None Delivery Location:[place] 2021 Term 38w 4d 7h 17m 7h 12m/0h 04m/0h 01m 2.65 kg (5 lb 13.5 oz) F Vag-S pont Epidur al Livin g 5 7 LIU IRIZARRY,BG BRADLEY Boothe , Edgar Poole MD Delivery Location:Hospital ( [facility] ) Comments 3 NSVDs, proven pelvis to 8# Last Filed Vital Signs Vital Sign Reading Time Taken Comments Blood Pressure 119/80 08/10/2024 7:25 PM SOUND RECORDING TECHNICIAN Pulse 87 08/10/2024 7:25 PM SOUND RECORDING TECHNICIAN Temperature 36.6 C (97.8 F) 08/10/2024 5:59 PM SOUND RECORDING TECHNICIAN Respiratory Rate 16 08/10/2024 5:59 PM SOUND RECORDING TECHNICIAN Oxygen Saturation 97% 08/10/2024 7:25 PM SOUND RECORDING TECHNICIAN Inhaled Oxygen Concentration - - Weight 68.4 kg (150 lb 12.8 oz) 08/10/2024 5:59 PM SOUND RECORDING TECHNICIAN Height 165.1 cm (5' 5) 08/10/2024 5:59 PM SOUND RECORDING TECHNICIAN Body Mass Index 25.09 08/10/2024 5:59 PM SOUND RECORDING TECHNICIAN Plan of Treatment Health Maintenance Due Date [...] 3 VIEWS RIGHT STAT 08/10/2024 6:26 PM SOUND RECORDING TECHNICIAN ANTI HIV 1/2 Routine 01/29/2021 10:44 AM CDT care, subsequent in first trimester (HC) ANTI HCV Routine 01/29/2021 10:44 AM CDT care, subsequent in first trimester (HC) MANUAL WRITER THIN PREP PAP SCREEN IMAGED Routine 05/02/2016 4:36 PM CDT Low grade squamous intraepithelial lesion (LGSIL) on cervical Pap smear from Last 3 Months or Most Recently Relevant to Health Maintenance Results * XR HAND 3 VIEWS RIGHT (08/10/2024 6:26 PM SOUND RECORDING TECHNICIAN) Anatomical Region Laterality Modality HANDS, HAND R Digital Radiogra phy 08/10/2024 7:02 PM SOUND RECORDING TECHNICIAN Narrative 08/10/2024 7:02 PM SOUND RECORDING TECHNICIAN For Patients: As a result of the [...] calli Non-React calli 01/29/2021 5:51 PM CDT [facility] Comment:Antibodies to HCV no t detected; does not exclude the possibility of exposure to HCV. Blood BLOOD SPECIMEN / Unknown Venipuncture / Unknown 01/29/2021 10:44 AM CDT 01/29/2021 10:46 AM CDT Juanita Bean MD SEND OUTS Final Re sult Performing Organization Address City/[facility]/ZIP Co de Phone Number [facility] [address] [place] [address], [place] * ANTI HIV 1/2 (01/29/2021 10:44 AM CDT) HIV-1/HIV-2 ANTIBODY Non-Reacti ve Non-Reacti ve 01/29/2021 5:53 PM CDT [facility] TRAL LABORATORY Comment:HIV-1 p24 and HIV-1/ HIV-2 Ab not detected. Blood BLOOD SPECIMEN / Unknown Venipuncture / Unknown 01/29/2021 10:44 AM CDT 01/29/2021 10:46 AM CDT Juanita Bean MD SEND OUTS Final Re sult Performing Organization Address [facility] Co de Phone Number [facility] Campaign[facility]CRMR[facility] [address] [place] [address], [place] * MANUAL WRITER THIN PREP PAP SCREEN IMAGED [[id number]] (05/02/2016 4:36 PM CDT) Case Report Gynecologic Cytology Report Case: [id number] Authorizing Provider: Britney Reeves MD Collected: 05/02/2016 1636 Ordering Location: [facility] Received: 05/02/2016 [facility] Clinic First Screen: Boyd Sharp Pathologist: Gerald Boo MD Specimen: MANUAL WRITER ThinPrep Vial Diagnostic, Cervical 08/27/2016 5:20 PM SOUND RECORDING TECHNICIAN [facility] [employer] ENTRAL LABORATORY Amendment [id number] displays the correct provider order. This amendment is issued to reflect the clinic incorrectly orderd this ThinPrep Pap as Screening instead of Diagnostic. The diagnosis does not change. 08/27/2016 5:20 PM SOUND RECORDING TECHNICIAN [facility] [employer] ENTRAL LABORATORY INTERPRETATION/ RESULT NEGATIVE FOR INTRAEPITHELIAL LESION OR MALIGNANCY (NIL) (none) 08/27/2016 5:20 PM SOUND RECORDING TECHNICIAN [facility] ENTRAL LABORATORY Amendment electronically signed by Gerald Boo MD on 08/27/2016 at 1720 SOUND RECORDING TECHNICIAN at 1557 SOUND RECORDING TECHNICIAN OTHER NON-NEOPLASTIC FINDING(S) Reactive cellular changes associated with inflammation/repa ir 08/27/2016 5:20 PM SOUND RECORDING TECHNICIAN [facility] [employer] [facility] ENTRAL LABORATORY SPECIMEN ADEQUACY Satisfactory for evaluation Endocervical component present 08/27/2016 5:20 PM SOUND RECORDING TECHNICIAN [facility] ENTRAL LABORATORY HPV REQUEST HPV and PAP 08/27/2016 5:20 PM SOUND RECORDING TECHNICIAN [facility] ENTRAL LABORATORY Date of LMP 08/27/2016 5:20 PM SOUND RECORDING TECHNICIAN [facility] ENTRAL LABORATORY Last Pap Date 08/16/15 08/27/2016 5:20 PM SOUND RECORDING TECHNICIAN [facility] ENTRAL LABORATORY Last Pap Result LSIL 7 5:20 PM SOUND RECORDING TECHNICIAN [facility] ENTRAL LABORATORY Abnormal Pap or [place] Bx in last 5 years Yes 08/27/2016 5:20 PM SOUND RECORDING TECHNICIAN [facility] ENTRAL LABORATORY Menstrual Status 08/27/2016 5:20 PM SOUND RECORDING TECHNICIAN [facility] ENTRAL LABORATORY [place] Bx Done Today No 08/27/2016 5:20 PM SOUND RECORDING TECHNICIAN [facility] [employer] [facility] ENTRAL LABORATORY Additional Information None given 08/27/2016 5:20 PM SOUND RECORDING TECHNICIAN [facility] ENTRAL LABORATORY Automated Review Successful 08/27/2016 5:20 PM SOUND RECORDING TECHNICIAN [facility] ENTRAL LABORATORY Comment:Specimen processed s uccessfully by automated collar separator device, ThinPrep Imaging System, [employer] ANCILLARY TESTING MANUAL WRITER HPV Ordered, Please see separate report 08/27/2016 5:20 PM SOUND RECORDING TECHNICIAN [facility] ENTRAL LABORATORY Note The pap test [...] pre-malignant and malignant lesions. 08/27/2016 5:20 PM SOUND RECORDING TECHNICIAN [facility] [employer] [facility] ENTRAL LABORATORY Other (Cervical) 05/02/2016 4:36 PM CDT 05/02/2016 4:36 PM CDT us Britney Reeves MD PATHOLOGY/CYTOLOGY Edited Result - Final [facility] [employer] LABORATORY-CENTRAL LABORATORY [address] [place] [address], [place] from Last 3 Months or Most Recently Relevant to Health Maintenance Insurance [facility] [address] [place] [id number] [facility] [address] [place] [id number] [facility] Advance Directives * Full Code (Latest Code Status on File) Date Activated Date Inactivated Comments 09/18/2021 1:21 PM 09/20/2021 12:32 PM Question Answer Comments Code Status Discussion: Discussed Care Teams Solar Photovoltaic Installer Relationship Specialty Start Date End Date Sara Us MD [place] [address] PCP - General Family Practice 11/19/23
--- OUTSIDE RECORDS SUMMARY | 2024-10-29 19:11 | XMS_ITS | Clinical Summary ---
Author Organization [facility] Address [address] [place] [address] Care Team Providers Care Falafel Cart Cook Name Role Phone Elsewhere, Pcp Primary Care Provider Unavailabl e Source Comments Patient records contain information from all sites at [facility]. For routine questions regarding patient records, call [phone] during business hours, M-F 8:00 AM - 5:00 PM Central Time. Record requests for emergency care only can be directed to [phone] at any time.[facility] Allergies Active Allergy Reactions Criticality Noted Date [...] often do you attend chur ch or buddhism services? More than 4 times per year 07/04/2021 Do you belong to any clubs o r organizations such as christianity groups, unions, fraternal or athletic groups, or [...] Answer Date Recorded PHQ-2 Score 3 01/29/2023 [facility] - Occupational [...] Sex Assigned at Female 07/04/2021 3:43 PM MATERIALS MANAGEMENT MANAGER Legal Sex Female 7:11 PM MATERIALS MANAGEMENT MANAGER Gender Identity Female 07/04/2021 3:43 PM MATERIALS MANAGEMENT MANAGER Sexual Orientation Straight 05/08/2021 2: 48 PM MATERIALS MANAGEMENT MANAGER Occupation Industry Job Start Date Job End [...] age to complete this topic Insurance [place] Care Teams Falafel Cart Cook Relationship Specialty Start Date End Date Elsewhere, Pcp PCP - General Family Medicine 01/21/21
[2024-10-29 19:26] VITALS: BP 142/117; PULSE 88; RESP 18; TEMP 36.6; O2SAT 99; BMI 27.5
--- NOTE | 2024-10-29 19:35 | CRLHL7_ITS ---
For Patients: As a result of the Cures Act, medical imaging exams and procedure reports are released immediately into your electronic medical record. You may view this report before your referring provider. If you have questions, please contact your health care provider. INDICATION: Shortness of breath COMPARISON: 05/22/2024 chest radiograph TECHNIQUE: Frontal and lateral radiographic views of the chest. FINDINGS: No pneumothorax. No pleural effusion. No definite focal pulmonary consolidation. Normal heart size. No evident acute displaced rib fracture. Slight anterior vertebral body wedging most conspicuous in the midthoracic spine. IMPRESSION: No acute cardiopulmonary findings. Dictated by Sam Rivero MD @ 10/29/2024 8:27:43 PM (Electronically Signed)
--- OUTSIDE RECORDS SUMMARY | 2024-10-29 19:45 | XMS_ITS | Clinical Summary ---
Author Organization [email or web address] [facility] & [facility] Address [address] [place] [address] Care Team Providers Care Housekeeping Cleaner Name Role Phone Sara Us MD Primary [...] Department Care Team Description 08/10/2024 5:52 PM AUDIT PRACTICE INTERN - 08/10/2024 7:25 PM AUDIT PRACTICE INTERN Emergency [facility] [address] [place] [address] Carlitos Rodríguez PA Finger injury, right, initial [...] AM CDT Legal Sex Female 5:23 AM AUDIT PRACTICE INTERN Gender Identity Female 01/05/2021 11:19 AM CDT [...] pont Epidur al N Livin g Delivery Location:[facility] Comments:induction-IUG R;double nuchal cord 2015 Term 38w 0d 1h 30m 3.63 kg (8 lb) M Vag-S pont Epidur al N Livin g Complications:None Delivery Location:[place] 2021 Term 38w 4d 7h 17m 7h 12m/0h 04m/0h 01m 2.65 kg (5 lb 13.5 oz) F Vag-S pont Epidur al Livin g 5 7 LIU IRIZARRY,BG BRADLEY Boothe , Edgar Poole MD Delivery Location:Hospital ( [facility] ) Comments 3 NSVDs, proven pelvis to 8# Last Filed Vital Signs Vital Sign Reading Time Taken Comments Blood Pressure 119/80 08/10/2024 7:25 PM AUDIT PRACTICE INTERN Pulse 87 08/10/2024 7:25 PM AUDIT PRACTICE INTERN Temperature 36.6 C (97.8 F) 08/10/2024 5:59 PM AUDIT PRACTICE INTERN Respiratory Rate 16 08/10/2024 5:59 PM AUDIT PRACTICE INTERN Oxygen Saturation 97% 08/10/2024 7:25 PM AUDIT PRACTICE INTERN Inhaled Oxygen Concentration - - Weight 68.4 kg (150 lb 12.8 oz) 08/10/2024 5:59 PM AUDIT PRACTICE INTERN Height 165.1 cm (5' 5) 08/10/2024 5:59 PM AUDIT PRACTICE INTERN Body Mass Index 25.09 08/10/2024 5:59 PM AUDIT PRACTICE INTERN Plan of Treatment Health Maintenance Due Date [...] 3 VIEWS RIGHT STAT 08/10/2024 6:26 PM AUDIT PRACTICE INTERN ANTI HIV 1/2 Routine 01/29/2021 10:44 AM CDT care, subsequent in first trimester (HC) ANTI HCV Routine 01/29/2021 10:44 AM CDT care, subsequent in first trimester (HC) SUPERVISOR WATERPROOFING THIN PREP PAP SCREEN IMAGED Routine 05/02/2016 4:36 PM CDT Low grade squamous intraepithelial lesion (LGSIL) on cervical Pap smear from Last 3 Months or Most Recently Relevant to Health Maintenance Results * XR HAND 3 VIEWS RIGHT (08/10/2024 6:26 PM AUDIT PRACTICE INTERN) Anatomical Region Laterality Modality HANDS, HAND R Digital Radiogra phy 08/10/2024 7:02 PM AUDIT PRACTICE INTERN Narrative 08/10/2024 7:02 PM AUDIT PRACTICE INTERN For Patients: As a result of the [...] calli Non-React calli 01/29/2021 5:51 PM CDT [facility] Comment:Antibodies to HCV no t detected; does not exclude the possibility of exposure to HCV. Blood BLOOD SPECIMEN / Unknown Venipuncture / Unknown 01/29/2021 10:44 AM CDT 01/29/2021 10:46 AM CDT Juanita Bean MD SEND OUTS Final Re sult Performing Organization Address City/[facility]/ZIP Co de Phone Number [facility] [address] [place] [address], [place] * ANTI HIV 1/2 (01/29/2021 10:44 AM CDT) HIV-1/HIV-2 ANTIBODY Non-Reacti ve Non-Reacti ve 01/29/2021 5:53 PM CDT [facility] Comment:HIV-1 p24 and HIV-1/ HIV-2 Ab not detected. Blood BLOOD SPECIMEN / Unknown Venipuncture / Unknown 01/29/2021 10:44 AM CDT 01/29/2021 10:46 AM CDT Juanita Bean MD SEND OUTS Final Re sult Performing Organization Address [facility] Co de Phone Number [facility] [address] [place] [address], [place] * SUPERVISOR WATERPROOFING THIN PREP PAP SCREEN IMAGED [[id number]] (05/02/2016 4:36 PM CDT) Case Report Gynecologic Cytology Report Case: [id number] Authorizing Provider: Britney Reeves MD Collected: 05/02/2016 1636 Ordering Location: [facility] Received: 05/02/2016 [facility] First Screen: Boyd Sharp Pathologist: Gerald Boo MD Specimen: SUPERVISOR WATERPROOFING ThinPrep Vial Diagnostic, Cervical 08/27/2016 5:20 PM AUDIT PRACTICE INTERN [facility] Amendment [id number] displays the correct provider order. This amendment is issued to reflect the clinic incorrectly orderd this ThinPrep Pap as Screening instead of Diagnostic. The diagnosis does not change. 08/27/2016 5:20 PM AUDIT PRACTICE INTERN [facility] [employer] EN[facility]ORAT[facility] INTERPRETATION/ RESULT NEGATIVE FOR INTRAEPITHELIAL LESION OR MALIGNANCY (NIL) (none) 08/27/2016 5:20 PM AUDIT PRACTICE INTERN [facility] Amendment electronically signed by Gerald Boo MD on 08/27/2016 at 1720 AUDIT PRACTICE INTERN at 1557 AUDIT PRACTICE INTERN OTHER NON-NEOPLASTIC FINDING(S) Reactive cellular changes associated with inflammation/repa ir 08/27/2016 5:20 PM AUDIT PRACTICE INTERN [facility] [employer] [facility] ENTRAL LABORATORY SPECIMEN ADEQUACY Satisfactory for evaluation Endocervical component present 08/27/2016 5:20 PM AUDIT PRACTICE INTERN [facility] HPV REQUEST HPV and PAP 08/27/2016 5:20 PM AUDIT PRACTICE INTERN [facility] Date of LMP 08/27/2016 5:20 PM AUDIT PRACTICE INTERN [facility] Last Pap Date 08/16/15 08/27/2016 5:20 PM AUDIT PRACTICE INTERN [facility] Last Pap Result LSIL 7 5:20 PM AUDIT PRACTICE INTERN [facility] Abnormal Pap or [place] Bx in last 5 years Yes 08/27/2016 5:20 PM AUDIT PRACTICE INTERN [facility] Menstrual Status 08/27/2016 5:20 PM AUDIT PRACTICE INTERN [facility] EN[facility]AL [facility]ORY [place] Bx Done Today No 08/27/2016 5:20 PM AUDIT PRACTICE INTERN [facility] [employer] [facility] Additional Information None given 08/27/2016 5:20 PM AUDIT PRACTICE INTERN [facility] EN[facility]AL LAB[facility]ATORY Automated Review Successful 08/27/2016 5:20 PM AUDIT PRACTICE INTERN [facility] Comment:Specimen processed s uccessfully by automated manufacturing finance manager device, ThinPrep Imaging System, [employer] ANCILLARY TESTING SUPERVISOR WATERPROOFING HPV Ordered, Please see separate report 08/27/2016 5:20 PM AUDIT PRACTICE INTERN [facility] Note The pap test is [...] pre-malignant and malignant lesions. 08/27/2016 5:20 PM AUDIT PRACTICE INTERN [facility] [employer] [facility] Other (Cervical) 05/02/2016 4:36 PM CDT 05/02/2016 4:36 PM CDT us Britney Reeves MD PATHOLOGY/CYTOLOGY Edited Result - Final [facility] [employer] [facility]ORAT[facility] [address] [place] [address], [place] from Last 3 Months or Most Recently Relevant to Health Maintenance Insurance [facility] [address] [place] [id number] [facility] [address] [place] [id number] [facility] Advance Directives * Full Code (Latest Code Status on File) Date Activated Date Inactivated Comments 09/18/2021 1:21 PM 09/20/2021 12:32 PM Question Answer Comments Code Status Discussion: Discussed Care Teams Housekeeping Cleaner Relationship Specialty Start Date End Date Sara Us [place] [address] [place] [address] PCP - General Family Practice 11/19/23
--- OUTSIDE RECORDS SUMMARY | 2024-10-29 19:45 | XMS_ITS | Clinical Summary ---
Author Organization [facility] Address [address] [place] [address] Care Team Providers Care Aircraft Assembler Name Role Phone Elsewhere, Pcp Primary Care Provider Unavailabl e Source Comments Patient records contain information from all sites at [facility]. For routine questions regarding patient records, call [phone] during business hours, M-F 8:00 AM - 5:00 PM Central Time. Record requests for emergency care only can be directed to [phone] at any time.[facility] Allergies Active Allergy Reactions Criticality Noted [...] any clubs o r organizations such as denominational groups, unions, fraternal or athletic groups, or [...] Answer Date Recorded PHQ-2 Score 3 01/29/2023 [facility] - [...] Sex Assigned at Female 07/04/2021 3:43 PM COFFEE SHOP MANAGER Legal Sex Female 7:11 PM COFFEE SHOP MANAGER Gender Identity Female 07/04/2021 3:43 PM COFFEE SHOP MANAGER Sexual Orientation Straight 05/08/2021 2: 48 PM COFFEE SHOP MANAGER Occupation Industry Job Start Date Job [...] patient's age to complete this topic Insurance [place] [employer] Care Teams Aircraft Assembler Relationship Specialty Start Date End Date Elsewhere, Pcp PCP - General Family Medicine 01/21/21
[2024-10-29 19:55] LABS: Lactate* 0.6 mmol/L (0.5-1.9)
--- NOTE | 2024-10-29 19:56 | ED.GENADULT ---
HPI - General Adult General Chief complaint: Cough Stated complaint: Chest pain, shortness of Breath Time Seen by Provider: 10/29/24 19:31 Source: patient Mode of arrival: ambulatory Limitations: no limitations History of Present Illness HPI narrative: 33-year-old female presenting today with a cough. Patient states she has been coughing for over 2 weeks. Causes or significant chest pain when she coughs. Cough is productive when it started now it is dry. She denies fevers or chills. No changes in her appetite. 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 Patient quit smoking 1 year ago. Past medical history significant for migraine headaches, ADHD, and anxiety. Patient takes clonazepam, Adderall, lamotrigine, Seroquel. Related Data Home Medications ?Medication ?Instructions ?Recorded ?Confirmed clonazepam 1 mg tablet 1 mg PO BID PRN 02/23/24 10/29/24 dextroamphetamine-amphetamine ER 1 cap PO QAM 02/23/24 10/29/24 15 mg 24hr capsule,extend release lamotrigine 25 mg tablet 25 mg PO Q12H 04/14/24 10/29/24 Allergies Allergy/AdvReac Type Severity Reaction Status Date / Time bee venom protein (honey bee) AdvReac Mild edema Verified 10/29/24 19:31 Review of Systems Status of ROS: Reports: 10 or more systems reviewed and unremarkable except as noted in History and below [facility] Medical History Polysubstance abuse ?F19.10 - Other psychoactive substance abuse, uncomplicated (ICD-10) Anxiety ?F41.9 - Anxiety disorder, unspecified (ICD-10) ADHD ?F90.9 - Attention-deficit hyperactivity disorder, unspecified type (ICD-10) Social History Smoking Status: Former smoker Do you use any of these nicotine containing products: Vaping Products Second hand tobacco smoke exposure: No How often do you have a drink containing alcohol: never AUDIT-C Alcohol total score: 0 Non-prescribed substance use: denies use Non-prescribed substance use details: clean since 2009 service: No Exam Narrative: Exam Narrative: Well-nourished well-developed patient in no acute distress. Alert and oriented. Answers questions appropriately. Mood and affect are appropriate. Thoughts are goal oriented and rational. No tangential or magical thinking noted. Patient speaks in full sentences without needing to catch her breath. HEENT: Normocephalic atraumatic. Multiple facial tattoos. Pupils are equally round reactive to light. Extraocular muscles are intact. Conjunctivae are moist without any icterus noted. Moist mucous membranes. Posterior pharynx is normal. Neck is soft without any lymphadenopathy or thyromegaly. No masses are appreciated. Cardiovascular: Heart is regular rate and rhythm S1 and S2 are present without any murmurs. Lungs: Clear to auscultation bilaterally no wheezes rhonchi or rales are appreciated. Patient takes deep breaths without any discomfort. Extremities: Bilateral lower extremities are without edema. Skin: Well perfused, multiple tattoos. Const: Vital Signs, click to edit/add: Vital Signs - 24 hr 10/29/24 19: Temperature 97.9 F Pulse Rate [Left P ulse Oximeter] 88 Respiratory Rate 18 Blood Pressure [Ri ght Upper Arm] 142/117 H Pulse Oximetry 99 Oxygen Delivery Me thod Room Air Course Course ED Course: EKG, read by me, shows normal sinus rhythm with a pulse of 81 Lab work is unremarkable. Chest x-ray, read by me, does not show any acute pathology. Nothing concerning for pneumonia. Patient reassured. Vital Signs Vital signs: Initial Vital Signs Temperature 97.9 F 10/29/24 19:26 Temperature Source Temporal Artery Scan 10/29/24 19: Pulse Rate 88 10/29/24 19: Respiratory Rate 18 10/29/24 19: Blood Pressure 142/117 H 10/29/24 19: Blood Pressure Mean 125 H 10/29/24 19:26 Blood Pressure Position Supine 10/29/24 19: Pulse Oximetry 99 10/29/24 19:26 Oxygen Delivery Method Room Air 10/29/24 19: Vital Signs Temperature 97.9 F 10/29/24 19:26 Pulse Rate 88 10/29/24 19:26 Respiratory Rate 18 10/29/24 19:26 Blood Pressure 142/117 H 10/29/24 19: Pulse Oximetry 99 10/29/24 19:26 Oxygen Delivery Method Room Air 10/29/24 19:26 Temperature 97.9 F 10/29/24 19:26 Pulse Rate 88 10/29/24 19:26 Respiratory Rate 18 10/29/24 19:26 Blood Pressure 142/117 H 10/29/24 19:26 Pulse Oximetry 99 10/29/24 19:26 Oxygen Delivery Method Room Air 10/29/24 19:26 Medical Decision Making MDM Narrative Medical decision making narrative: 33-year-old female with a cough, likely viral in nature. We discussed these cough can last several weeks before they get better. Sounds like her symptoms are slowly get already getting better. We discussed symptomatic treatment and reasons for follow-up. Lab Data Lab results reviewed: Yes I reviewed the patient's lab results Labs: Lab Results 10/29/24 10/29/24 Range/Units 19:46 19:50 WBC 8.36 (4.50-11.00) K/uL RBC 4.09 (4.00-5.20) m/uL Hgb 13.4 (12.0-16.0) gm/dL Hct 39.1 (33.0-51.0) % MCV 96 (80-100) fL MCH 33 (26-34) pg MCHC 34 (32-36) gm/dL RDW Coeff of Luz 11.9 (11.5-15.5) % Plt Count 308 (140-440) K/uL Neut % (Auto) 58.1 (42.0-72.0) % Lymph % (Auto) 37.1 (20-44) % [place] % (Auto) 3.8 (0.0-11.0) % Eos % (Auto) 0.7 (0.0-7.0) % Baso % (Auto) 0.1 (0.0-3.0) % Neut # (Auto) 4.85 (1.7-7.0) K/uL Lymph # (Auto) 3.10 H (0.90-2.90) K/uL [place] # (Auto) 0.30 (0.00-0.90) K/UL Eos # (Auto) 0.06 (0.00-0.50) K/uL Baso # (Auto) 0.01 (0.00-0.30) K/uL Abs Immat Gran (auto) 0.02 (0.00-0.30) K/uL Imm/Tot Granulo (auto) 0.2 % Sodium 140 (135-149) mmol/L Potassium 4.2 (3.6-5.1) mmol/L Chloride 105 (96-114) mmol/L Carbon Dioxide 25 (20-32) mmol/L Anion Gap 10 (7-15) mEq/L BUN 15 (5-24) mg/dL Creatinine 0.9 (0.5-1.5) mg/dL Estimated Creat Clear 76.06 Estimated GFR 86 ml/min Glucose 98 (60-115) mg/dL Lactate 0.6 (0.5-1.9) mmol/L Calcium 9.6 (8.4-10.6) mg/dL Troponin I < 0.01 (0.01-0.04) ng/mL SARS-CoV-2 (PCR) Negative SARS-CoV-2 (Negative) Influenza Type A (PCR) Negative PCR FLU A (Negative) Influenza Type B (PCR) Negative PCR FLU B (Negative) RSV (PCR) Negative PCR RSV (Negative) Imaging Data Chest x-ray: Attestation: I have reviewed the pertinent imaging results. Radiologist's impression: TECHNIQUE: Frontal and lateral radiographic views of the chest. FINDINGS: No pneumothorax. No pleural effusion. No definite focal pulmonary consolidation. Normal heart size. No evident acute displaced rib fracture. Slight anterior vertebral body wedging most conspicuous in the midthoracic spine. IMPRESSION: No acute cardiopulmonary findings. ECG Data Attestation: I personally reviewed and interpreted this ECG as follows: Discharge Plan Discharge Clinical Impression: Cough Patient Disposition: Home, Self-Care Condition: Stable Additional Instructions: Your workup today revealed no evidence of pneumonia. The cough can last several weeks before they get better. Recommend [id number] cough syrups or cough drops. Follow-up if you develop a fever or shortness of breath. Prescriptions: No Action lamotrigine 25 mg tablet 25 mg PO Q12H clonazepam 1 mg tablet 1 mg PO BID PRN dextroamphetamine-amphetamine 15 mg capsule,extended release 24hr 1 cap PO QAM Follow Up/Referrals: Sara Centeno MD [Primary Care Provider] - Stand Alone Forms: [facility] Info Instructions
[2024-10-29 19:57] LABS: Basophils Absolute Auto 0.01 K/uL (0.00-0.30); Basophils Percent Auto 0.1 % (0.0-3.0); Eosinophils Absolute Auto 0.06 K/uL (0.00-0.50); Eosinophils Percent Auto 0.7 % (0.0-7.0); Hematocrit 39.1 % (33.0-51.0); Hemoglobin* 13.4 gm/dL (12.0-16.0); Immature Granulocytes Abs Auto 0.02 K/uL (0.00-0.30); Immature Granulocytes Pct Auto 0.2 %; Lymphocytes Percent Auto 37.1 % (20-44); Mean Corpuscular HGB Conc 34 gm/dL (32-36); Mean Corpuscular Hemoglobin 33 pg (26-34); Mean Corpuscular Volume 96 fL (80-100); Monocytes Percent Auto 3.8 % (0.0-11.0); Neutrophils Absolute Auto 4.85 K/uL (1.7-7.0); Neutrophils Percent Auto 58.1 % (42.0-72.0); Platelet Count* 308 K/uL (140-440); RDW Coefficient of Variation % 11.9 % (11.5-15.5); Red Blood Count 4.09 m/uL (4.00-5.20); White Blood Count* 8.36 K/uL (4.50-11.00)
[2024-10-29 20:13] LABS: Chloride* 105 mmol/L (96-114); Sodium* 140 mmol/L (135-149)
[2024-10-29 20:14] LABS: Potassium* 4.2 mmol/L (3.6-5.1)
[2024-10-29 20:17] LABS: Anion Gap 10 mEq/L (7-15); Blood Urea Nitrogen* 15 mg/dL (5-24); Calcium* 9.6 mg/dL (8.4-10.6); Carbon Dioxide* 25 mmol/L (20-32); Creatinine* 0.9 mg/dL (0.5-1.5); Est. Creatinine Clearance* 76.06; Estimated Glomerular Filt Rate 86 ml/min; Glucose* 98 mg/dL (60-115)
[2024-10-29 20:33] LABS: Slide Review Reflex No
[2024-10-29 20:36] LABS: Troponin I* < 0.01 ng/mL (0.01-0.04)
[2024-10-29 20:39] LABS: PCR FLU A Negative PCR FLU A (Negative); PCR FLU B Negative PCR FLU B (Negative); PCR RSV Negative PCR RSV (Negative); SARS PCR* Negative SARS-CoV-2 (Negative)
[2024-10-29 20:45] VITALS: BP 131/84; PULSE 66; RESP 22; O2SAT 100
== END 2024-10-29 21:04 | disposition home or self-care (01) ==
PROVIDERS: Emergency Provider Family Medicine
DX: R05.9 Cough, unspecified (principal)
CPT/HCPCS: 36415; 71046; 80048; 83605; 84484; 85025; 87631; 93005; 94761; 99284; 99285